=== PATIENT | male | born 1935 | race Caucasian/White ===

== ENCOUNTER → 2018-03-12 11:13 | Outpatient (CLI) | payer MEDICARE, SELFPAY ==
[2018-03-12 11:18] LABS: Microscopic, Urine URINE MICROSCOPIC (MICROSCOPIC)
[2018-03-12 11:34] LABS: Appearance,Urine CLEAR (Clear); Blood, Urine Negative (Negative); Color,Urine YELLOW (Yellow); Glucose,Urine (UA) Negative (Negative); Ketones,Urine TRACE (Negative); Leukocyte Esterase,Urine Negative (Negative); Nitrate,Urine Negative (Negative); PH,Urine 5.5 (5.0-8.5); Protein,Urine 1+ (Negative); Specific Gravity, Urine >= 1.030 (1.005-1.030); Urobilinogen,Urine 0.2 EU/dl (0.2)
[2018-03-12 11:39] LABS: Creatinine,Urine Random 210 mg/dL (20-320); Total Protein,Urine Random 49.9 mg/dL (0.0-11.9)
[2018-03-12 11:41] LABS: Bilirubin,Urine Negative (Negative)
[2018-03-12 11:45] LABS: Basophils # 0.1 K/mm3 (0-0.2); Basophils % 0.5 % (0.1-2.0); Eosinophils # 0.3 K/mm3 (0.0-0.4); Eosinophils % 2.5 % (0.1-12.0); Hematocrit 38.2 % (42.0-52.0); Hemoglobin 12.1 g/dL (14.1-18.0); Lymphocytes # 6.1 K/mm3 (0.7-4.5); Lymphocytes % 57.4 % (10-50); Mean Corpuscular HGB Conc 31.7 g/dL (31.8-35.4); Mean Corpuscular Hemoglobin 30.7 pg (27.0-31.2); Mean Corpuscular Volume 96.8 fl (80-94); Mean Platelet Volume 8.1 fl (7.4-10.4); Monocytes # 0.5 K/mm3 (0.1-1.0); Neutrophils # 3.7 K/mm3 (1.8-7.8); Neutrophils % 34.6 % (37.0-80.0); Platelet Count 224 K/mm3 (142-424); Red Blood Count 3.94 M/mm3 (4.60-6.20); Red Cell Distribution Width 14.5 % (11.5-17.5); White Blood Count 10.6 K/mm3 (4.8-10.8)
[2018-03-12 11:48] LABS: Bacteria,Urine 3+ /lpf; Mucus,Urine 2+ /lpf; Squamous Epithelial Cell,Urine Occasional #/hpf (0-5)
[2018-03-12 11:52] LABS: MANUAL DIFFERENTIAL MANUAL DIFFERENTIAL (MANUAL DIFF)
[2018-03-12 12:30] LABS: Albumin Level 3.8 gm/dL (3.4-5.0); Anion Gap 13.6 mEq/L (5-15); Blood Urea Nitrogen 22 mg/dL (7-18); Calcium 8.9 mg/dL (8.5-10.1); Carbon Dioxide 28 mmol/L (21.0-32.0); Chloride 102 mmol/L (98-107); Creatinine,Serum 1.52 mg/dL (0.70-1.30); Estimated Glomerular Filt Rate 44 ml/min (>60); GFR (African American) 53 ML/MIN (>60); Glucose 149 mg/dL (74-106); Phosphorous 3.8 mg/dL (2.4-4.9); Potassium 4.6 mmoL/L (3.5-5.1); Sodium 139 mmol/L (136-145); Uric Acid 7.3 mg/dL (2.6-7.2)
[2018-03-12 14:57] LABS: Eosinophils % 3 % (0-3); Lymphocytes % 53 % (10-50); Monocytes % 6 % (2-9); Neutrophils % 38 % (42-76); Platelet Estimate Normal; RBC Morphology Normal; Total Cells Counted 100
[2018-03-13 09:59] LABS: Vitamin D 25 Hydroxy 37.1 ng/mL (30.0-100.0)
[2018-03-14 06:20] LABS: Calcium, Ionized 5.2 mg/dL (4.5-5.6); Parathyroid Hormone Intact 33 pg/mL (15-65)
== END ==
PROVIDERS: Visit Provider Internal Medicine Nephrology
DX: N28.9 Disorder of kidney and ureter, unspecified (principal)
CPT/HCPCS: 36415; 80069; 81001; 82330; 82570; 82652; 83970; 84155; 84550; 85007; 85025; 87086

== ENCOUNTER → 2018-03-29 15:04 | Outpatient (POV) | payer MEDICARE, SELFPAY | PROVIDERS: Visit Provider Internal Medicine Nephrology | DX: Z00.00 Encounter for general adult medical examination without abnormal findings (principal) ==

== ENCOUNTER → 2018-07-13 09:36 | Outpatient (CLI) | payer MEDICARE, SELFPAY | PROVIDERS: Visit Provider Internal Medicine Medical Oncology | DX: D72.820 Lymphocytosis (symptomatic) (principal) | CPT/HCPCS: 36415 ==

== ENCOUNTER → 2019-01-31 10:47 | Outpatient (CLI) | payer MEDICARE, SELFPAY | PROVIDERS: Visit Provider Internal Medicine Medical Oncology | DX: D64.9 Anemia, unspecified (principal); I89.8 Other specified noninfective disorders of lymphatic vessels and lymph nodes | CPT/HCPCS: 36415 ==

== ENCOUNTER → 2019-02-07 10:04 | Outpatient (CLI) | payer MEDICARE, SELFPAY ==
[2019-02-07 11:40] LABS: Basophils # 0.1 K/mm3 (0-0.2); Basophils % 0.5 % (0.1-2.0); Eosinophils # 0.2 K/mm3 (0.0-0.4); Eosinophils % 1.4 % (0.1-12.0); Hematocrit 44.6 % (42.0-52.0); Hemoglobin 14.2 g/dL (14.1-18.0); Lymphocytes # 9.9 K/mm3 (0.7-4.5); Mean Corpuscular HGB Conc 31.8 g/dL (31.8-35.4); Mean Corpuscular Hemoglobin 32.8 pg (27.0-31.2); Mean Corpuscular Volume 103.3 fl (80-94); Mean Platelet Volume 8.5 fl (7.4-10.4); Monocytes # 0.6 K/mm3 (0.1-1.0); Monocytes % 3.5 % (1.7-9.3); Neutrophils # 5.4 K/mm3 (1.8-7.8); Neutrophils % 33.6 % (37.0-80.0); Platelet Count 195 K/mm3 (142-424); Red Blood Count 4.32 M/mm3 (4.60-6.20); Red Cell Distribution Width 13.9 % (11.5-17.5); White Blood Count 16.2 K/mm3 (4.8-10.8)
[2019-02-07 11:51] LABS: MANUAL DIFFERENTIAL MANUAL DIFFERENTIAL (MANUAL DIFF)
[2019-02-07 13:34] LABS: Alanine Aminotransferase 37 U/L (12-78); Albumin/Globulin Ratio 1.4 (1.1-1.8); Alkaline Phosphatase 59 U/L (46-116); Anion Gap 15.1 mEq/L (5-15); Aspartate Amino Transferase 24 U/L (15-37); Bilirubin,Total 0.4 mg/dL (0.2-1.0); Blood Urea Nitrogen 31 mg/dL (7-18); Calcium 9.1 mg/dL (8.5-10.1); Carbon Dioxide 26 mmol/L (21.0-32.0); Chloride 101 mmol/L (98-107); Creatinine,Serum 1.59 mg/dL (0.70-1.30); Estimated Glomerular Filt Rate 42 ml/min (>60); GFR (African American) 51 ML/MIN (>60); Globulin 2.8 gm/dl (1.3-3.2); Glucose 123 mg/dL (74-106); Potassium 5.1 mmoL/L (3.5-5.1); Sodium 137 mmol/L (136-145); Total Protein,Serum 6.8 gm/dL (6.4-8.2)
[2019-02-07 14:52] LABS: Eosinophils % 2 % (0-3); Lymphocytes % 55 % (10-50); Monocytes % 3 % (2-9); Neutrophils % 38 % (42-76); Total Cells Counted 100
[2019-02-07 14:54] LABS: Macrocytosis 1+; Platelet Estimate Normal
[2019-02-07 14:55] LABS: RBC Morphology Normal
== END ==
PROVIDERS: Visit Provider Internal Medicine Medical Oncology
DX: C91.00 Acute lymphoblastic leukemia not having achieved remission (principal)
CPT/HCPCS: 36415; 80053; 85007; 85025

== ENCOUNTER → 2019-03-19 09:14 | Outpatient (CLI) | payer MEDICARE, SELFPAY ==
[2019-03-19 09:22] LABS: Microscopic, Urine URINE MICROSCOPIC (MICROSCOPIC)
[2019-03-19 10:55] LABS: Basophils # 0.1 K/mm3 (0-0.2); Basophils % 0.8 % (0.1-2.0); Eosinophils # 0.1 K/mm3 (0.0-0.4); Eosinophils % 1.6 % (0.1-12.0); Hematocrit 47.3 % (42.0-52.0); Hemoglobin 15.1 g/dL (14.1-18.0); Lymphocytes # 3.8 K/mm3 (0.7-4.5); Mean Corpuscular Hemoglobin 33.6 pg (27.0-31.2); Mean Corpuscular Volume 104.9 fl (80-94); Mean Platelet Volume 8.9 fl (7.4-10.4); Monocytes # 0.4 K/mm3 (0.1-1.0); Monocytes % 5.7 % (1.7-9.3); Neutrophils # 3.4 K/mm3 (1.8-7.8); Platelet Count 178 K/mm3 (142-424); Red Blood Count 4.51 M/mm3 (4.60-6.20); Red Cell Distribution Width 14.2 % (11.5-17.5); White Blood Count 7.8 K/mm3 (4.8-10.8)
[2019-03-19 11:42] LABS: Albumin Level 4.1 gm/dL (3.4-5.0); Blood Urea Nitrogen 26 mg/dL (7-18); Calcium 8.4 mg/dL (8.5-10.1); Carbon Dioxide 24 mmol/L (21.0-32.0); Chloride 103 mmol/L (98-107); Creatinine,Serum 1.61 mg/dL (0.70-1.30); Estimated Glomerular Filt Rate 41 ml/min (>60); GFR (African American) 50 ML/MIN (>60); Glucose 189 mg/dL (74-106); Phosphorous 3.8 mg/dL (2.4-4.9); Sodium 135 mmol/L (136-145)
[2019-03-19 14:29] LABS: Creatinine,Urine Random 120 mg/dL (20-320); Total Protein,Urine Random 31.3 mg/dL (0.0-11.9)
[2019-03-19 18:52] LABS: Appearance,Urine CLEAR (Clear); Bilirubin,Urine Negative (Negative); Blood, Urine Negative (Negative); Color,Urine YELLOW (Yellow); Glucose,Urine (UA) Negative (Negative); Ketones,Urine Negative (Negative); Leukocyte Esterase,Urine Negative (Negative); Nitrate,Urine Negative (Negative); Protein,Urine Negative (Negative); Urobilinogen,Urine 0.2 EU/dl (0.2)
[2019-03-19 19:04] LABS: Bacteria,Urine Trace /lpf; Squamous Epithelial Cell,Urine Occasional #/hpf (0-5); WBC,Urine Occasional #/hpf (0-3)
[2019-03-20 11:47] LABS: Vitamin D 25 Hydroxy 45.7 ng/mL (30.0-100.0)
[2019-03-21 21:14] LABS: Parathyroid Hormone Intact 56 pg/mL (15-65)
[2019-03-21 21:15] LABS: Calcium, Ionized 4.9 mg/dL (4.5-5.6)
== END ==
PROVIDERS: Visit Provider Internal Medicine Nephrology
DX: N18.3 Chronic kidney disease, stage 3 (moderate) (principal)
CPT/HCPCS: 36415; 80069; 81001; 82330; 82570; 82652; 83970; 84155; 85025

== ENCOUNTER → 2019-03-28 13:19 | Outpatient (POV) | payer MEDICARE, SELFPAY | PROVIDERS: Visit Provider Internal Medicine Nephrology | DX: Z00.00 Encounter for general adult medical examination without abnormal findings (principal) ==

== ENCOUNTER → 2019-09-20 11:25 | Outpatient (CLI) | payer MEDICARE, SELFPAY ==
[2019-09-20 11:53] LABS: Basophils # 0.1 K/mm3 (0-0.2); Basophils % 0.9 % (0.1-2.0); Eosinophils # 0.2 K/mm3 (0.0-0.4); Hematocrit 43.3 % (42.0-52.0); Hemoglobin 14.2 g/dL (14.1-18.0); Lymphocytes # 6.5 K/mm3 (0.7-4.5); Lymphocytes % 58.8 % (10-50); Mean Corpuscular HGB Conc 32.8 g/dL (31.8-35.4); Mean Corpuscular Hemoglobin 33.3 pg (27.0-31.2); Mean Corpuscular Volume 101.5 fl (80-94); Mean Platelet Volume 8.6 fl (7.4-10.4); Monocytes # 0.6 K/mm3 (0.1-1.0); Monocytes % 5.6 % (1.7-9.3); Neutrophils # 3.6 K/mm3 (1.8-7.8); Neutrophils % 32.7 % (37.0-80.0); Platelet Count 163 K/mm3 (142-424); Red Blood Count 4.26 M/mm3 (4.60-6.20); Red Cell Distribution Width 14.5 % (11.5-17.5); White Blood Count 11.1 K/mm3 (4.8-10.8)
[2019-09-20 11:55] LABS: MANUAL DIFFERENTIAL MANUAL DIFFERENTIAL (MANUAL DIFF)
[2019-09-20 13:42] LABS: Chloride 103 mmol/L (98-107)
[2019-09-20 13:43] LABS: Potassium 4.8 mmoL/L (3.5-5.1); Sodium 139 mmol/L (136-145)
[2019-09-20 13:45] LABS: Alanine Aminotransferase 26 U/L (12-78); Albumin Level 4.2 g/dl (3.5-5.0); Alkaline Phosphatase 49 U/L (38-126); Anion Gap 12.8 mEq/L (5-15); Aspartate Amino Transferase 35 U/L (17-59); Bilirubin,Total 0.6 mg/dl (0.2-1.3); Blood Urea Nitrogen 23 mg/dl (9-20); Calcium 9.3 mg/dl (8.4-10.2); Carbon Dioxide 28 mmol/L (22.0-30.0); Estimated Glomerular Filt Rate 58 ml/min (>60); GFR (African American) 70 ML/MIN (>60); Globulin 2.1 g/dL (1.3-3.2); Glucose 154 mg/dl (74-100); Total Protein,Serum 6.3 g/dl (6.3-8.2)
[2019-09-20 14:59] LABS: Eosinophils % 1 % (0-3); Lymphocytes % 58 % (10-50); Macrocytosis 1+; Monocytes % 10 % (2-9); Neutrophils % 31 % (42-76); Platelet Estimate Normal; Total Cells Counted 100
== END ==
PROVIDERS: Visit Provider Internal Medicine Medical Oncology
DX: C91.00 Acute lymphoblastic leukemia not having achieved remission (principal)
CPT/HCPCS: 36415; 80053; 85007; 85025

== ENCOUNTER 2020-03-05 09:22 | Emergency (ER) | payer MEDICARE, SELFPAY ==
[2020-03-05 09:23] VITALS: BP 117/64; PULSE 64; RESP 16; TEMP 36.8; O2SAT 98; BMI 27.3
--- NOTE | 2020-03-05 10:24 | HMH.EDUTC ---
[facility] [place] Disposition Clinical Impression: Exposure to COVID-19 virus Disposition: Home, Self-Care Condition on Discharge: Good Instructions: Preventing the Spread of Coronavirus Discharge Instructions Additional Instructions: Drink plenty of fluids. Take tylenol for pain or fever. Follow up with your regular doctor. GO TO THE ER FOR ANY WORSENING SYMPTOMS Referrals: Lianet Farrell MD [Primary Care Provider] - Time of Disposition: 10:38 Medical Decision Making - Medical Records Medical records reviewed: No: I reviewed the patient's medical records. - Yimi Inquiry Pt receiving controlled substance: No Vital Signs: 03/05/20 09:23 Temperature 98.2 F Temperature Source Oral Pulse Rate [Right] 64 Respiratory Rate 16 Blood Pressure [Right Arm] 117/64 Blood Pressure Mean [Right Arm] 81 Blood Pressure Source [Right Arm] Automatic Cuff Blood Pressure Position [Right Arm] Sitting 02 Sat by Pulse Oximetry 98 Oxygen Delivery Method Room Air [facility] [place] HPI - General Stated complaint: Covid exposure Time Seen by Provider: 03/05/20 10:24 - History of Present Illness Provider Complaint: He states that he has been exposed to covid and needs a covid test. - Related Data Home Medications Medication Instructions Recorded Confirmed atenolol 25 mg tablet 25 mg PO DAILY 07/13/18 11/07/19 atorvastatin 40 mg tablet 40 mg PO DAILY 07/13/18 11/07/19 calcium polycarbophil 625 mg tablet 1,250 mg PO DAILY 07/13/18 11/07/19 ferrous fumarate 325 mg (106 mg PO tab 07/13/18 11/07/19 iron) tablet folic acid 1 mg tablet 1 mg PO DAILY 07/13/18 11/07/19 glimepiride 2 mg tablet 2 mg PO DAILY 07/13/18 11/07/19 insulin glargine 100 unit/mL (3 10 unit SQ DAILY 07/13/18 11/07/19 mL) subcutaneous pen isosorbide mononitrate 30 mg 30 mg PO DAILY 07/13/18 11/07/19 tablet,extended release 24 hr niacin 750 mg tablet,extended 750 mg PO QHS 07/13/18 11/07/19 release nitroglycerin 0.4 mg sublingual 0.4 mg SUBLINGUAL Q5-15M 07/13/18 11/07/19 tablet ranolazine 1,000 mg 1,000 mg PO BID 07/13/18 11/07/19 tablet,extended release,12 hr sitagliptin 50 mg tablet 50 mg PO DAILY 07/13/18 11/07/19 temazepam 30 mg capsule 30 mg PO QHS PRN 07/13/18 11/07/19 vitamins A,C,and E-selenium capsule 1 cap PO DAILY 07/13/18 11/07/19 prasugrel 5 mg tablet 5 mg PO DAILY 11/07/19 11/07/19 Allergies Allergy/AdvReac Type Severity Reaction Status Date / Time No Known Allergies Allergy Verified 11/07/19 09:[address] [facility] History - Hepatitis A Screen Attestation statement:: This patient has been screened for Hepatitis A risk factors. I have reviewed the patient's past medical history: Yes Medical History: Reports:: Cancer, Diabetes Mellitus Type 2, Myocardial Infarction Other Medical History: Reports: Arthritis Other Surgeries: Yes: CABG, Other Amputation: No Fractures: No - Social History Smoking Status: Former smoker Alcohol Intake: never Occupational Status: employed, retired ROS Obtained: Yes All systems reviewed & no additional complaints - Constitutional Constitutional: Reports system reviewed and no additional complaints, except as docu - Eyes Eyes: Reports system reviewed and no additional complaints, except as docu - ENT Ears, Nose, Mouth, and Throat: Reports system reviewed and no additional complaints, except as docu - Cardiovascular Cardiovascular: Reports system reviewed and no additional complaints, except as docu - Respiratory Respiratory: Yes system reviewed and no additional complaints, except as docu - Gastrointestinal Gastrointestingal: Reports: system reviewed and no additional complaints, except as docu Physical Exam - General General appearance: alert, in no apparent distress - Head Head exam: atraumatic, normocephalic, normal inspection - Eye Eye exam: Present: normal appearance, PERRL, EOMI - ENT ENT exam: Present: normal exam, normal oropharynx, mucous membranes moist,
[2020-03-05 11:02] VITALS: BP 118/70; PULSE 70; RESP 16; TEMP 36.6; O2SAT 98
[2020-03-06 15:42] LABS: Covid-19 Nasal PCR Sendout Lex Not Detected
== END 2020-03-05 11:02 | disposition home or self-care (01) ==
PROVIDERS: Emergency Provider Nurse Practitioner Family; PCP Family Medicine
DX: Z20.828 Contact with and (suspected) exposure to other viral communicable diseases (principal); E11.9 Type 2 diabetes mellitus without complications; I25.2 Old myocardial infarction; Z95.1 Presence of aortocoronary bypass graft; Z79.899 Other long term (current) drug therapy
CPT/HCPCS: 99201; U0004

== ENCOUNTER → 2020-04-27 11:35 | Outpatient (CLI) | payer MEDICARE, SELFPAY ==
[2020-04-27 11:41] LABS: Microscopic, Urine URINE MICROSCOPIC (MICROSCOPIC)
[2020-04-27 11:59] LABS: Basophils # 0.1 K/mm3 (0-0.2); Basophils % 0.8 % (0.1-2.0); Eosinophils # 0.2 K/mm3 (0.0-0.4); Eosinophils % 1.9 % (0.1-12.0); Hematocrit 44.7 % (42.0-52.0); Hemoglobin 14.8 g/dL (14.1-18.0); Lymphocytes # 4.7 K/mm3 (0.7-4.5); Mean Corpuscular Hemoglobin 33.1 pg (27.0-31.2); Mean Platelet Volume 9.1 fl (7.4-10.4); Monocytes # 0.5 K/mm3 (0.1-1.0); Monocytes % 5.2 % (1.7-9.3); Neutrophils # 4.2 K/mm3 (1.8-7.8); Neutrophils % 43.2 % (37.0-80.0); Platelet Count 151 K/mm3 (142-424); Red Blood Count 4.46 M/mm3 (4.60-6.20); Red Cell Distribution Width 13.6 % (11.5-17.5); White Blood Count 9.7 K/mm3 (4.8-10.8)
[2020-04-27 13:02] LABS: Appearance,Urine CLEAR (Clear); Bilirubin,Urine Negative (Negative); Blood, Urine Negative (Negative); Color,Urine YELLOW (Yellow); Glucose,Urine (UA) Negative (Negative); Ketones,Urine Negative (Negative); Leukocyte Esterase,Urine Negative (Negative); Nitrate,Urine Negative (Negative); PH,Urine 5.5 (5.0-8.5); Protein,Urine Negative (Negative); Specific Gravity, Urine <= 1.005 (1.005-1.030); Urobilinogen,Urine 0.2 EU/dl (0.2)
[2020-04-27 13:08] LABS: Squamous Epithelial Cell,Urine Occasional #/hpf (0-5); WBC,Urine Occasional #/hpf (0-3)
[2020-04-27 15:51] LABS: Creatinine,Urine Random 30 mg/dL (Not Estab.)
[2020-04-28 14:47] LABS: Alanine Aminotransferase 34 U/L (12-78); Albumin Level 4.7 g/dl (3.5-5.0); Anion Gap 12.6 mEq/L (5-15); Aspartate Amino Transferase 34 U/L (17-59); Bilirubin,Total 0.6 mg/dl (0.2-1.3); Blood Urea Nitrogen 22 mg/dl (9-20); Carbon Dioxide 28 mmol/L (22.0-30.0); Chloride 101 mmol/L (98-107); Estimated Glomerular Filt Rate 53 ml/min (>60); GFR (African American) 64 ML/MIN (>60); Globulin 2.4 g/dL (1.3-3.2); Glucose 158 mg/dl (74-100); Potassium 4.6 mmoL/L (3.5-5.1); Sodium 137 mmol/L (136-145); Total Protein,Serum 7.1 g/dl (6.3-8.2)
[2020-04-28 14:58] LABS: Alkaline Phosphatase 65 U/L (38-126)
== END ==
PROVIDERS: Internal Medicine Medical Oncology; Visit Provider Internal Medicine Nephrology
DX: N18.30 Chronic kidney disease, stage 3 unspecified (principal)
CPT/HCPCS: 36415; 80053; 80069; 81001; 82570; 84100; 84155; 85025

== ENCOUNTER → 2020-07-25 08:51 | Outpatient (CLI) | payer MEDICARE, SELFPAY ==
[2020-07-25 08:57] LABS: Microscopic, Urine URINE MICROSCOPIC (MICROSCOPIC)
[2020-07-25 10:27] LABS: Basophils # 0.1 K/mm3 (0-0.2); Basophils % 0.7 % (0.1-2.0); Eosinophils # 0.2 K/mm3 (0.0-0.4); Eosinophils % 1.5 % (0.1-12.0); Hematocrit 38.3 % (42.0-52.0); Hemoglobin 12.1 g/dL (14.1-18.0); Lymphocytes # 6.6 K/mm3 (0.7-4.5); Lymphocytes % 57.1 % (10-50); Mean Corpuscular HGB Conc 31.5 g/dL (31.8-35.4); Mean Corpuscular Hemoglobin 31.6 pg (27.0-31.2); Mean Platelet Volume 7.8 fl (7.4-10.4); Monocytes # 0.5 K/mm3 (0.1-1.0); Monocytes % 4.2 % (1.7-9.3); Neutrophils # 4.2 K/mm3 (1.8-7.8); Neutrophils % 36.5 % (37.0-80.0); Platelet Count 160 K/mm3 (142-424); Red Blood Count 3.82 M/mm3 (4.60-6.20); Red Cell Distribution Width 13.6 % (11.5-17.5); White Blood Count 11.6 K/mm3 (4.8-10.8)
[2020-07-25 10:30] LABS: MANUAL DIFFERENTIAL MANUAL DIFFERENTIAL (MANUAL DIFF)
[2020-07-25 10:36] LABS: Chloride 102 mmol/L (98-107)
[2020-07-25 10:37] LABS: Albumin Level 4.2 g/dl (3.5-5.0); Potassium 4.8 mmoL/L (3.5-5.1); Sodium 137 mmol/L (136-145)
[2020-07-25 10:39] LABS: Blood Urea Nitrogen 18 mg/dl (9-20); Estimated Glomerular Filt Rate 58 ml/min (>60); GFR (African American) 70 ML/MIN (>60)
[2020-07-25 10:40] LABS: Anion Gap 8.8 mEq/L (5-15); Calcium 9.2 mg/dl (8.4-10.2); Carbon Dioxide 31 mmol/L (22.0-30.0); Glucose 110 mg/dl (74-100)
[2020-07-25 13:28] LABS: Anisocytosis 1+; Eosinophils % 1 % (0-3); Lymphocytes % 52 % (10-50); Macrocytosis 1+; Monocytes % 8 % (2-9); Neutrophils % 39 % (42-76); Platelet Estimate Normal; Total Cells Counted 100
[2020-07-25 14:19] LABS: Appearance,Urine CLEAR (Clear); Blood, Urine Negative (Negative); Color,Urine AMBER (Yellow); Glucose,Urine (UA) Negative (Negative); Ketones,Urine Negative (Negative); Leukocyte Esterase,Urine Negative (Negative); Nitrate,Urine Negative (Negative); PH,Urine 6.5 (5.0-8.5); Protein,Urine 1+ (Negative)
[2020-07-25 14:33] LABS: Creatinine,Urine Random 137 mg/dL (Not Estab.)
[2020-07-25 14:34] LABS: Bilirubin,Urine Negative (Negative)
[2020-07-25 14:37] LABS: Amorphous Sediment,Urine 1+ /lpf; Hyaline Casts,Urine Occasional #/lpf (0); Mucus,Urine 1+ /lpf; Squamous Epithelial Cell,Urine Occasional #/hpf (0-5); WBC,Urine Occasional #/hpf (0-3)
== END ==
PROVIDERS: Visit Provider Internal Medicine Nephrology
DX: N18.30 Chronic kidney disease, stage 3 unspecified (principal)
CPT/HCPCS: 36415; 80069; 81001; 82570; 84156; 84166; 85007; 85025

== ENCOUNTER → 2020-08-03 14:43 | Outpatient (POV) | payer MEDICARE, SELFPAY | PROVIDERS: Visit Provider Internal Medicine Nephrology | DX: Z00.00 Encounter for general adult medical examination without abnormal findings (principal) ==

== ENCOUNTER → 2021-02-26 10:00 | Outpatient (CLI) | payer MEDICARE, SELFPAY | PROVIDERS: PCP Family Medicine; Visit Provider Family Medicine | DX: G47.30 Sleep apnea, unspecified (principal); I10 Essential (primary) hypertension; G47.00 Insomnia, unspecified; R06.83 Snoring | CPT/HCPCS: G0399 ==

== ENCOUNTER 2021-03-11 09:56 | Emergency (ER) | payer MEDICARE, SELFPAY ==
[2021-03-11 11:30] VITALS: BP 132/73; PULSE 78; RESP 20; TEMP 36.7; O2SAT 98; BMI 27.1
[2021-03-11 11:48] VITALS: BP 132/73; PULSE 78; RESP 20; TEMP 36.7; O2SAT 98
--- NOTE | 2021-03-11 12:11 | HMH.EDUTC ---
[facility] [place] Disposition Clinical Impression: Toe problem Disposition: Home, Self-Care Condition on Discharge: Good Instructions: DI for Ingrown Toenail Removal, Cephalexin, Bacitracin Topical Additional Instructions: Keep area on toes clean and dry Take medication as prescribed Cut toe out of old pair of shoes or house shoes may keep toes from rubbing shoes Return if needed straight to ER if any life threatening symptoms Follow up with your Family Doctor or Podiatry if no improvement or any worsen of symptoms Prescriptions: Bacitracin [Bacitracin Oint 0.9GM UDP] 1 each TP TID 10 Days #30 packet Transmission Status: Pending to [facility] cephALEXin [cephALEXin 500mg capsule*] 500 mg PO Q8H 7 Days #21 cap Transmission Status: Pending to [facility] Referrals: Lianet Farrell MD [Primary Care Provider] - As needed Time of Disposition: 12:28 Medical Decision Making - Yimi Inquiry Pt receiving controlled substance: No Yimi was queried for this patient: No Vital Signs: 03/11/21 11:30 03/11/21 11:48 Temperature 98.0 F 98.0 F Temperature Source Oral Pulse Rate 78 Pulse Rate [Right Brachial] 78 Respiratory Rate 20 20 Blood Pressure 132/73 Blood Pressure [Right Arm] 132/73 Blood Pressure Mean [Right Arm] 92 Blood Pressure Source [Right Arm] Automatic Cuff Blood Pressure Position [Right Arm] Sitting 02 Sat by Pulse Oximetry 98 Oxygen Delivery Method Room Air Medical Decision Narrative: Medication discussed with pharmacy [facility] [place] HPI - General Stated complaint: both big toe bleeding Time Seen by Provider: 03/11/21 12:11 Mode of Arrival: Ambulatory Source of Information: Patient Limitations: No Limitations Description of Symptoms (Recalled from Triage Doc. by RN): PATIENT REPORTS HE HAD A LEFT GREAT TOE INGROWN NAIL WORKED ON AT [employer] YESTERDAY. HE STATES TOE WAS BLEEDING LAST NIGHT BUT HAS SLOWED DOWN THIS MORNING. HE IS ON BLOOD THINNERS. 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 and had two ingrown nails dug out States that he had issues getting them to stop bleeding because he is on blood thinners but finally got them to stop and noticed his left toe was looking red like it may be getting infected so he came in - Related Data Home Medications Medication Instructions Recorded Confirmed atorvastatin 40 mg tablet 40 mg PO DAILY 07/13/18 03/11/21 calcium polycarbophil 625 mg tablet 1,250 mg PO DAILY 07/13/18 03/11/21 ferrous fumarate 325 mg (106 mg PO tab 07/13/18 03/11/21 iron) tablet folic acid 1 mg tablet 1 mg PO DAILY 07/13/18 03/11/21 glimepiride 2 mg tablet 2 mg PO DAILY 07/13/18 03/11/21 insulin glargine 100 unit/mL (3 10 unit SQ DAILY 07/13/18 03/11/21 mL) subcutaneous pen isosorbide mononitrate 30 mg 30 mg PO DAILY 07/13/18 03/11/21 tablet,extended release 24 hr niacin 750 mg tablet,extended 750 mg PO QHS 07/13/18 03/11/21 release nitroglycerin 0.4 mg sublingual 0.4 mg SUBLINGUAL Q5-15M 07/13/18 03/11/21 tablet ranolazine 1,000 mg 1,000 mg PO BID 07/13/18 03/11/21 tablet,extended release,12 hr temazepam 30 mg capsule 30 mg PO QHS PRN 07/13/18 03/11/21 vitamins A,C,and E-selenium capsule 1 cap PO DAILY 07/13/18 03/11/21 prasugrel 5 mg tablet 5 mg PO DAILY 11/07/19 03/11/21 alogliptin 12.5 mg tablet 12.5 mg PO DAILY 03/11/21 03/11/21 aspirin 81 mg tablet,delayed 81 mg PO DAILY 03/11/21 03/11/21 release carvedilol 12.5 mg tablet 12.5 mg PO BID tab 03/11/21 03/11/21 coenzyme Q10 75 mg capsule 75 mg PO DAILY 03/11/21 03/11/21 ezetimibe 10 mg tablet 10 mg PO DA
== END 2021-03-11 12:35 | disposition home or self-care (01) ==
PROVIDERS: Emergency Provider Nurse Practitioner; PCP Family Medicine
DX: L60.0 Ingrowing nail (principal); I25.10 Atherosclerotic heart disease of native coronary artery without angina pectoris; E11.9 Type 2 diabetes mellitus without complications; I25.2 Old myocardial infarction; I10 Essential (primary) hypertension; E78.5 Hyperlipidemia, unspecified; Z79.01 Long term (current) use of anticoagulants
CPT/HCPCS: G0463; 99202

== ENCOUNTER → 2021-03-25 09:26 | Outpatient (CLI) | payer MEDICARE, SELFPAY ==
[2021-03-25 09:30] LABS: Microscopic, Urine URINE MICROSCOPIC (MICROSCOPIC)
[2021-03-25 10:01] LABS: Basophils # 0.2 K/mm3 (0-0.2); Basophils % 2.9 % (0.1-2.0); Eosinophils # 0.1 K/mm3 (0.0-0.4); Eosinophils % 1.3 % (0.1-12.0); Hemoglobin 13.5 g/dL (14.1-18.0); Lymphocytes # 4.4 K/mm3 (0.7-4.5); Lymphocytes % 51.7 % (10-50); Mean Corpuscular HGB Conc 34.6 g/dL (31.8-35.4); Mean Corpuscular Hemoglobin 33.8 pg (27.0-31.2); Mean Corpuscular Volume 97.6 fl (80-94); Mean Platelet Volume 9.2 fl (7.4-10.4); Monocytes # 0.4 K/mm3 (0.1-1.0); Monocytes % 4.4 % (1.7-9.3); Neutrophils # 3.4 K/mm3 (1.8-7.8); Neutrophils % 39.7 % (37.0-80.0); Platelet Count 165 K/mm3 (142-424); Red Cell Distribution Width 13.6 % (11.5-17.5); White Blood Count 8.5 K/mm3 (4.8-10.8)
[2021-03-25 10:08] LABS: MANUAL DIFFERENTIAL MANUAL DIFFERENTIAL (MANUAL DIFF)
[2021-03-25 10:32] LABS: Albumin Level 4.6 g/dl (3.5-5.0); Anion Gap 11.2 mEq/L (5-15); Blood Urea Nitrogen 24 mg/dl (9-20); Calcium 9.8 mg/dl (8.4-10.2); Carbon Dioxide 30 mmol/L (22.0-30.0); Chloride 101 mmol/L (98-107); Estimated Glomerular Filt Rate 48 ml/min (>60); GFR (African American) 58 ML/MIN (>60); Glucose 120 mg/dl (74-100); Phosphorous 4.8 mg/dl (2.5-4.5); Potassium 4.2 mmoL/L (3.5-5.1); Sodium 138 mmol/L (136-145)
[2021-03-25 10:38] LABS: Appearance,Urine CLEAR (Clear); Bilirubin,Urine Negative (Negative); Blood, Urine Negative (Negative); Color,Urine YELLOW (Yellow); Glucose,Urine (UA) Negative (Negative); Ketones,Urine Negative (Negative); Leukocyte Esterase,Urine Negative (Negative); Nitrate,Urine Negative (Negative); Protein,Urine TRACE (Negative); Specific Gravity, Urine 1.025 (1.005-1.030); Urobilinogen,Urine 0.2 EU/dl (0.2)
[2021-03-25 10:43] LABS: Intact Parathyroid Hormone 50.3 pg/mL (7.5-53.5)
[2021-03-25 10:48] LABS: 25-OH Vitamin D, Total 61.2 ng/mL (30-100)
[2021-03-25 10:50] LABS: Creatinine,Urine Random 106 mg/dL (Not Estab.)
[2021-03-25 12:26] LABS: Eosinophils % 1 % (0-3); Lymphocytes % 59 % (10-50); Monocytes % 2 % (2-9); Neutrophils % 37 % (42-76); Platelet Estimate Normal; RBC Morphology Normal; Total Cells Counted 100
[2021-03-26 16:13] LABS: Calcium, Ionized 5.1 mg/dL (4.5-5.6)
== END ==
PROVIDERS: Visit Provider Internal Medicine Nephrology
DX: N18.30 Chronic kidney disease, stage 3 unspecified (principal)
CPT/HCPCS: 36415; 80069; 81001; 82306; 82330; 82570; 83970; 84155; 85007; 85025

== ENCOUNTER → 2021-03-29 15:50 | Outpatient (POV) | payer MEDICARE, SELFPAY | PROVIDERS: Visit Provider Internal Medicine Nephrology | DX: Z00.00 Encounter for general adult medical examination without abnormal findings (principal) ==

== ENCOUNTER → 2021-05-03 09:50 | Outpatient (CLI) | payer MEDICARE, SELFPAY ==
[2021-05-03 10:20] LABS: Basophils # 0.1 K/mm3 (0-0.2); Basophils % 1.1 % (0.1-2.0); Eosinophils # 0.1 K/mm3 (0.0-0.4); Eosinophils % 1.2 % (0.1-12.0); Hematocrit 44.8 % (42.0-52.0); Hemoglobin 14.4 g/dL (14.1-18.0); Lymphocytes # 5.2 K/mm3 (0.7-4.5); Lymphocytes % 54.2 % (10-50); Mean Corpuscular HGB Conc 32.2 g/dL (31.8-35.4); Mean Corpuscular Hemoglobin 33.5 pg (27.0-31.2); Mean Corpuscular Volume 104.1 fl (80-94); Mean Platelet Volume 9.5 fl (7.4-10.4); Monocytes # 0.4 K/mm3 (0.1-1.0); Neutrophils # 3.8 K/mm3 (1.8-7.8); Neutrophils % 39.5 % (37.0-80.0); Platelet Count 155 K/mm3 (142-424); Red Cell Distribution Width 13.4 % (11.5-17.5); White Blood Count 9.5 K/mm3 (4.8-10.8)
[2021-05-03 10:25] LABS: MANUAL DIFFERENTIAL MANUAL DIFFERENTIAL (MANUAL DIFF)
[2021-05-03 12:12] LABS: Anisocytosis 2+; Eosinophils % 1 % (0-3); Giant Platelets 2+; Lymphocytes % 57 % (10-50); Macrocytosis 2+; Monocytes % 7 % (2-9); Neutrophils % 35 % (42-76); Platelet Estimate Normal; Total Cells Counted 100
== END ==
PROVIDERS: PCP Family Medicine; Visit Provider Internal Medicine Medical Oncology
DX: D64.9 Anemia, unspecified (principal)
CPT/HCPCS: 36415; 85007; 85025

== ENCOUNTER → 2021-08-13 14:01 | Outpatient (CLI) | payer MEDICARE, SELFPAY | PROVIDERS: PCP Family Medicine; Visit Provider Family Medicine | DX: R55 Syncope and collapse (principal) | CPT/HCPCS: 93225; 93226 ==

== ENCOUNTER → 2022-04-23 09:04 | Outpatient (CLI) | payer MEDICARE, SELFPAY ==
[2022-04-23 09:09] LABS: Microscopic, Urine URINE MICROSCOPIC (MICROSCOPIC)
[2022-04-23 09:20] LABS: Basophils # 0.1 K/mm3 (0-0.2); Basophils % 0.7 % (0.1-2.0); Eosinophils # 0.2 K/mm3 (0.0-0.4); Eosinophils % 1.5 % (0.1-12.0); Hematocrit 39.5 % (42.0-52.0); Lymphocytes # 9.7 K/mm3 (0.7-4.5); Lymphocytes % 64.2 % (10-50); Mean Corpuscular HGB Conc 32.8 g/dL (31.8-35.4); Mean Corpuscular Hemoglobin 33.3 pg (27.0-31.2); Mean Corpuscular Volume 101.4 fl (80-94); Mean Platelet Volume 8.6 fl (7.4-10.4); Monocytes # 0.5 K/mm3 (0.1-1.0); Monocytes % 3.6 % (1.7-9.3); Neutrophils # 4.6 K/mm3 (1.8-7.8); Platelet Count 178 K/mm3 (142-424); Red Cell Distribution Width 13.6 % (11.5-17.5); White Blood Count 15.2 K/mm3 (4.8-10.8)
[2022-04-23 09:23] LABS: MANUAL DIFFERENTIAL MANUAL DIFFERENTIAL (MANUAL DIFF)
[2022-04-23 09:29] LABS: Appearance,Urine CLEAR (Clear); Bilirubin,Urine Negative (Negative); Blood, Urine Negative (Negative); Color,Urine YELLOW (Yellow); Glucose,Urine (UA) Negative (Negative); Ketones,Urine Negative (Negative); Leukocyte Esterase,Urine Negative (Negative); Nitrate,Urine Negative (Negative); PH,Urine 5.5 (5.0-8.5); Protein,Urine Negative (Negative); Urobilinogen,Urine 0.2 EU/dl (0.2)
[2022-04-23 09:48] LABS: Creatinine,Urine Random 99 mg/dL (Not Estab.)
[2022-04-23 09:56] LABS: Bacteria,Urine Trace /lpf; Squamous Epithelial Cell,Urine Occasional #/hpf (0-5); WBC,Urine Occasional #/hpf (0-3)
[2022-04-23 09:58] LABS: Albumin Level 4.5 g/dl (3.5-5.0); Anion Gap 13.1 mEq/L (5-15); Blood Urea Nitrogen 26 mg/dl (9-20); Calcium 9.1 mg/dl (8.4-10.2); Carbon Dioxide 28 mmol/L (22.0-30.0); Chloride 104 mmol/L (98-107); Estimated Glomerular Filt Rate 44 ml/min (>60); GFR (African American) 54 ML/MIN (>60); Glucose 105 mg/dl (74-100); Phosphorous 4.3 mg/dl (2.5-4.5); Potassium 4.1 mmoL/L (3.5-5.1); Sodium 141 mmol/L (136-145)
[2022-04-23 10:11] LABS: Intact Parathyroid Hormone 38.2 pg/mL (7.5-53.5)
[2022-04-23 10:16] LABS: 25-OH Vitamin D, Total 57.5 ng/mL (30-100)
[2022-04-23 10:17] LABS: Eosinophils % 1 % (0-3); Lymphocytes % 54 % (10-50); Monocytes % 4 % (2-9); Neutrophils % 41 % (42-76); Platelet Estimate Normal; RBC Morphology Normal; Total Cells Counted 100
== END ==
PROVIDERS: PCP Family Medicine; Visit Provider Internal Medicine Nephrology
DX: N18.30 Chronic kidney disease, stage 3 unspecified (principal); E55.9 Vitamin D deficiency, unspecified
CPT/HCPCS: 36415; 80069; 81001; 82306; 82570; 83970; 84155; 85007; 85025

== ENCOUNTER → 2022-04-28 13:58 | Outpatient (POV) | payer MEDICARE, SELFPAY | PROVIDERS: Visit Provider Internal Medicine Nephrology | DX: Z00.00 Encounter for general adult medical examination without abnormal findings (principal) ==

== ENCOUNTER → 2022-06-15 08:54 | Outpatient (CLI) | payer MEDICARE, SELFPAY ==
[2022-06-15 09:54] LABS: Basophils # 0.1 K/mm3 (0-0.2); Basophils % 0.9 % (0.1-2.0); Eosinophils # 0.2 K/mm3 (0.0-0.4); Eosinophils % 1.4 % (0.1-12.0); Hematocrit 41.3 % (42.0-52.0); Lymphocytes # 11.8 K/mm3 (0.7-4.5); Lymphocytes % 73.6 % (10-50); Mean Corpuscular HGB Conc 31.5 g/dL (31.8-35.4); Mean Corpuscular Hemoglobin 32.8 pg (27.0-31.2); Mean Corpuscular Volume 104.2 fl (80-94); Mean Platelet Volume 8.7 fl (7.4-10.4); Monocytes # 0.5 K/mm3 (0.1-1.0); Neutrophils # 3.4 K/mm3 (1.8-7.8); Neutrophils % 21.2 % (37.0-80.0); Platelet Count 157 K/mm3 (142-424); Red Blood Count 3.96 M/mm3 (4.60-6.20); Red Cell Distribution Width 13.9 % (11.5-17.5)
[2022-06-15 10:06] LABS: MANUAL DIFFERENTIAL MANUAL DIFFERENTIAL (MANUAL DIFF)
[2022-06-15 12:06] LABS: Eosinophils % 1 % (0-3); Lymphocytes % 79 % (10-50); Macrocytosis 1+; Monocytes % 1 % (2-9); Neutrophils % 19 % (42-76); Platelet Estimate Normal; Total Cells Counted 100
== END ==
PROVIDERS: PCP Family Medicine; Visit Provider Internal Medicine Medical Oncology
DX: D64.9 Anemia, unspecified (principal)
CPT/HCPCS: 36415; 85007; 85025

== ENCOUNTER → 2022-06-17 09:11 | Outpatient (CLI) | payer MEDICARE, SELFPAY ==
[2022-06-17 18:28] LABS: Chloride 104 mmol/L (98-107); Potassium 4.8 mmoL/L (3.5-5.1); Sodium 138 mmol/L (136-145)
[2022-06-17 18:31] LABS: Anion Gap 10.8 mEq/L (5-15); Blood Urea Nitrogen 28 mg/dl (9-20); Carbon Dioxide 28 mmol/L (22.0-30.0); Estimated Glomerular Filt Rate 44 ml/min (>60); GFR (African American) 54 ML/MIN (>60)
[2022-06-17 18:32] LABS: Calcium 9.1 mg/dl (8.4-10.2); Glucose 168 mg/dl (74-100)
== END ==
PROVIDERS: PCP Family Medicine; Visit Provider Family Medicine
DX: N18.9 Chronic kidney disease, unspecified (principal)
CPT/HCPCS: 80048

== ENCOUNTER 2022-07-27 08:00 | Outpatient (RCR) | payer MEDICARE, SELFPAY | END 2022-07-27 08:05 | disposition home or self-care (01) | LOC: PT 08:00 | PROVIDERS: PCP Family Medicine; Visit Provider Family Medicine | DX: R26.89 Other abnormalities of gait and mobility (principal); R53.1 Weakness | CPT/HCPCS: 97110; 97112; 97163; 97530 ==

== ENCOUNTER → 2023-02-28 09:15 | Outpatient (CLI) | payer MEDICARE, SELFPAY ==
[2023-02-28 19:01] LABS: Basophils # 0.1 K/mm3 (0-0.2); Basophils % 0.6 % (0.1-2.0); Eosinophils # 0.2 K/mm3 (0.0-0.4); Eosinophils % 1.5 % (0.1-12.0); Hematocrit 36.6 % (42.0-52.0); Hemoglobin 12.3 g/dL (14.1-18.0); Lymphocytes # 6.5 K/mm3 (0.7-4.5); Lymphocytes % 61.4 % (10-50); Mean Corpuscular HGB Conc 33.5 g/dL (31.8-35.4); Mean Corpuscular Hemoglobin 34.6 pg (27.0-31.2); Mean Corpuscular Volume 103.2 fl (80-94); Mean Platelet Volume 9.2 fl (7.4-10.4); Monocytes # 0.5 K/mm3 (0.1-1.0); Monocytes % 4.2 % (1.7-9.3); Neutrophils # 3.4 K/mm3 (1.8-7.8); Neutrophils % 32.3 % (37.0-80.0); Platelet Count 163 K/mm3 (142-424); Red Blood Count 3.55 M/mm3 (4.60-6.20); Red Cell Distribution Width 13.7 % (11.5-17.5); White Blood Count 10.6 K/mm3 (4.8-10.8)
[2023-02-28 19:04] LABS: MANUAL DIFFERENTIAL MANUAL DIFFERENTIAL (MANUAL DIFF)
[2023-02-28 19:10] LABS: Alanine Aminotransferase 37 U/L (12-78); Albumin Level 4.4 g/dl (3.5-5.0); Alkaline Phosphatase 67 U/L (38-126); Anion Gap 14.3 mEq/L (5-15); Aspartate Amino Transferase 75 U/L (17-59); Bilirubin,Total 0.6 mg/dl (0.2-1.3); Blood Urea Nitrogen 20 mg/dl (9-20); Calcium 9.3 mg/dl (8.4-10.2); Carbon Dioxide 26 mmol/L (22.0-30.0); Chloride 103 mmol/L (98-107); Estimated Glomerular Filt Rate 57 ml/min (>60); GFR (African American) 69 ML/MIN (>60); Globulin 2.2 g/dL (1.3-3.2); Glucose 109 mg/dl (74-100); Potassium 4.3 mmoL/L (3.5-5.1); Sodium 139 mmol/L (136-145); Total Protein,Serum 6.6 g/dl (6.3-8.2)
[2023-02-28 19:41] LABS: Lymphocytes % 60 % (10-50); Monocytes % 5 % (2-9); Neutrophils % 35 % (42-76); Thyroid Stimulating Hormone 1.93 uIU/mL (0.465-4.68); Total Cells Counted 100
[2023-02-28 19:42] LABS: Platelet Estimate Normal; RBC Morphology Normal
== END ==
PROVIDERS: PCP Family Medicine; Visit Provider Family Medicine
DX: N18.9 Chronic kidney disease, unspecified (principal); I25.118 Atherosclerotic heart disease of native coronary artery with other forms of angina pectoris; R19.4 Change in bowel habit
CPT/HCPCS: 80053; 84443; 85007; 85025

== ENCOUNTER → 2023-04-20 12:36 | Outpatient (CLI) | payer MEDICARE, SELFPAY ==
[2023-04-20 12:56] LABS: Microscopic, Urine URINE MICROSCOPIC (MICROSCOPIC)
[2023-04-20 13:13] LABS: Hematocrit 37.6 % (42.0-52.0); Hemoglobin 12.7 g/dL (14.1-18.0); Mean Corpuscular HGB Conc 33.6 g/dL (31.8-35.4); Mean Corpuscular Hemoglobin 33.5 pg (27.0-31.2); Mean Corpuscular Volume 99.5 fl (80-94); Platelet Count 167 K/mm3 (142-424); Red Blood Count 3.78 M/mm3 (4.60-6.20); Red Cell Distribution Width 13.5 % (11.5-17.5); White Blood Count 12.7 K/mm3 (4.8-10.8)
[2023-04-20 13:22] LABS: Appearance,Urine CLEAR (Clear); Bilirubin,Urine Negative (Negative); Blood, Urine Negative (Negative); Color,Urine YELLOW (Yellow); Glucose,Urine (UA) Negative (Negative); Ketones,Urine Negative (Negative); Leukocyte Esterase,Urine Negative (Negative); Nitrate,Urine Negative (Negative); PH,Urine 6.5 (5.0-8.5); Protein,Urine TRACE (Negative)
[2023-04-20 13:33] LABS: Albumin Level 4.4 g/dl (3.5-5.0); Anion Gap 10.7 mEq/L (5-15); Blood Urea Nitrogen 23 mg/dl (9-20); Calcium 8.8 mg/dl (8.4-10.2); Carbon Dioxide 25 mmol/L (22.0-30.0); Chloride 101 mmol/L (98-107); Estimated Glomerular Filt Rate 48 ml/min (>60); GFR (African American) 58 ML/MIN (>60); Glucose 231 mg/dl (74-100); Phosphorous 4.4 mg/dl (2.5-4.5); Potassium 4.7 mmoL/L (3.5-5.1); Sodium 132 mmol/L (136-145)
[2023-04-20 13:39] LABS: Creatinine,Urine Random 114 mg/dL (Not Estab.)
[2023-04-20 13:45] LABS: Intact Parathyroid Hormone 56.4 pg/mL (7.5-53.5)
[2023-04-20 13:46] LABS: Bacteria,Urine Trace /lpf; Mucus,Urine Trace /lpf; RBC,Urine Occasional #/hpf (0-3)
[2023-04-20 13:49] LABS: 25-OH Vitamin D, Total 69.4 ng/mL (30-100)
== END ==
LOC: LAB 12:37
PROVIDERS: PCP Family Medicine; Visit Provider Internal Medicine Nephrology
DX: N18.30 Chronic kidney disease, stage 3 unspecified (principal)
CPT/HCPCS: 36415; 80069; 81001; 82306; 82570; 83970; 84155; 85014; 85018; 85048; 85049

== ENCOUNTER 2023-06-26 08:03 | Outpatient (CLI) | payer MEDICARE, SELFPAY ==
[2023-06-26 08:44] LABS: Basophils # 0.1 K/mm3 (0-0.2); Basophils % 0.8 % (0.1-2.0); Eosinophils # 0.2 K/mm3 (0.0-0.4); Eosinophils % 1.9 % (0.1-12.0); Hematocrit 41.2 % (42.0-52.0); Lymphocytes # 7.2 K/mm3 (0.7-4.5); Lymphocytes % 63.4 % (10-50); Mean Corpuscular HGB Conc 31.5 g/dL (31.8-35.4); Mean Corpuscular Hemoglobin 33.5 pg (27.0-31.2); Mean Corpuscular Volume 106.5 fl (80-94); Mean Platelet Volume 9.4 fl (7.4-10.4); Monocytes # 0.5 K/mm3 (0.1-1.0); Monocytes % 4.1 % (1.7-9.3); Neutrophils # 3.4 K/mm3 (1.8-7.8); Neutrophils % 29.7 % (37.0-80.0); Platelet Count 128 K/mm3 (142-424); Red Blood Count 3.87 M/mm3 (4.60-6.20); Red Cell Distribution Width 13.6 % (11.5-17.5); White Blood Count 11.4 K/mm3 (4.8-10.8)
[2023-06-26 08:47] LABS: MANUAL DIFFERENTIAL MANUAL DIFFERENTIAL (MANUAL DIFF)
[2023-06-26 09:30] LABS: Eosinophils % 1 % (0-3); Lymphocytes % 57 % (10-50); Macrocytosis 3+; Monocytes % 4 % (2-9); Neutrophils % 38 % (42-76); Platelet Estimate Slight Decrease; Total Cells Counted 100
== END 2023-06-26 23:59 ==
LOC: LAB 08:04
PROVIDERS: PCP Family Medicine; Visit Provider Internal Medicine Medical Oncology
DX: C91.11 Chronic lymphocytic leukemia of B-cell type in remission (principal); Z79.899 Other long term (current) drug therapy
CPT/HCPCS: 36415; 85007; 85025

== ENCOUNTER 2023-08-22 18:00 | Outpatient (CLI) | payer MEDICARE, SELFPAY ==
[2023-08-22 19:13] LABS: Chloride 102 mmol/L (98-107); Sodium 137 mmol/L (136-145)
[2023-08-22 19:14] LABS: Potassium 5.1 mmoL/L (3.5-5.1)
[2023-08-22 19:16] LABS: Alanine Aminotransferase 48 U/L (12-78); Albumin Level 4.6 g/dl (3.5-5.0); Albumin/Globulin Ratio 2.3 (1.1-1.8); Alkaline Phosphatase 80 U/L (38-126); Anion Gap 11.1 mEq/L (5-15); Aspartate Amino Transferase 113 U/L (17-59); Bilirubin,Total 0.7 mg/dl (0.2-1.3); Blood Urea Nitrogen 38 mg/dl (9-20); Calcium 9.6 mg/dl (8.4-10.2); Carbon Dioxide 29 mmol/L (22.0-30.0); Estimated Glomerular Filt Rate 36 ml/min (>60); GFR (African American) 43 ML/MIN (>60); Glucose 314 mg/dl (74-100); Total Protein,Serum 6.6 g/dl (6.3-8.2)
== END 2023-08-22 23:59 | disposition home or self-care (01) ==
LOC: LAB.DROPOF 08-23 12:34
PROVIDERS: PCP Family Medicine; Visit Provider Family Medicine
DX: I50.9 Heart failure, unspecified (principal)
CPT/HCPCS: 80053

== ENCOUNTER 2023-12-24 11:57 | Outpatient (CLI) | payer MEDICARE, SELFPAY ==
[2023-12-24 12:32] LABS: Basophils # 0.1 K/mm3 (0-0.2); Basophils % 0.5 % (0.1-2.0); Eosinophils # 0.3 K/mm3 (0.0-0.4); Eosinophils % 2.3 % (0.1-12.0); Hematocrit 39.6 % (42.0-52.0); Hemoglobin 12.6 g/dL (14.1-18.0); Lymphocytes # 6.3 K/mm3 (0.7-4.5); Lymphocytes % 56.6 % (10-50); Mean Corpuscular HGB Conc 31.9 g/dL (31.8-35.4); Mean Corpuscular Hemoglobin 33.3 pg (27.0-31.2); Mean Corpuscular Volume 104.4 fl (80-94); Mean Platelet Volume 9.4 fl (7.4-10.4); Monocytes # 0.6 K/mm3 (0.1-1.0); Monocytes % 5.5 % (1.7-9.3); Neutrophils # 3.9 K/mm3 (1.8-7.8); Neutrophils % 35.1 % (37.0-80.0); Platelet Count 151 K/mm3 (142-424); Red Blood Count 3.79 M/mm3 (4.60-6.20); Red Cell Distribution Width 14.2 % (11.5-17.5); White Blood Count 11.1 K/mm3 (4.8-10.8)
[2023-12-24 12:44] LABS: MANUAL DIFFERENTIAL MANUAL DIFFERENTIAL (MANUAL DIFF)
[2023-12-24 12:50] LABS: Albumin Level 4.1 g/dl (3.5-5.0); Chloride 107 mmol/L (98-107); Potassium 5.1 mmoL/L (3.5-5.1); Sodium 137 mmol/L (136-145)
[2023-12-24 12:53] LABS: Alanine Aminotransferase 36 U/L (12-78); Alkaline Phosphatase 62 U/L (38-126); Anion Gap 14.1 mEq/L (5-15); Aspartate Amino Transferase 37 U/L (17-59); Bilirubin,Total 0.7 mg/dl (0.2-1.3); Blood Urea Nitrogen 33 mg/dl (9-20); Calcium 8.8 mg/dl (8.4-10.2); Carbon Dioxide 21 mmol/L (22.0-30.0); Estimated Glomerular Filt Rate 48 ml/min (>60); GFR (African American) 58 ML/MIN (>60); Globulin 2.1 g/dL (1.3-3.2); Glucose 135 mg/dl (74-100); Total Protein,Serum 6.2 g/dl (6.3-8.2)
[2023-12-24 13:10] LABS: Eosinophils % 2 % (0-3); Lymphocytes % 63 % (10-50); Monocytes % 5 % (2-9); Neutrophils % 30 % (42-76); RBC Morphology Normal; Total Cells Counted 100
[2023-12-24 13:11] LABS: Platelet Estimate Normal
== END 2023-12-24 23:59 | disposition home or self-care (01) ==
PROVIDERS: PCP Family Medicine; Visit Provider Internal Medicine Medical Oncology
DX: F32.0 Major depressive disorder, single episode, mild (principal); C91.10 Chronic lymphocytic leukemia of B-cell type not having achieved remission
CPT/HCPCS: 36415; 80053; 85007; 85025; 85027

== ENCOUNTER 2024-06-04 12:40 | Outpatient (CLI) | payer MEDICARE, SELFPAY ==
[2024-06-04 18:14] LABS: MANUAL DIFFERENTIAL MANUAL DIFFERENTIAL (MANUAL DIFF)
[2024-06-04 18:23] LABS: Basophils % 0.2 % (0.1-2.0); Eosinophils # 0.1 K/mm3 (0.0-0.4); Eosinophils % 0.9 % (0.1-12.0); Hematocrit 39.6 % (42.0-52.0); Hemoglobin 12.9 g/dL (14.1-18.0); Lymphocytes # 8.9 K/mm3 (0.7-4.5); Lymphocytes % 67.2 % (10-50); Mean Corpuscular HGB Conc 32.6 g/dL (31.8-35.4); Mean Corpuscular Hemoglobin 33.6 pg (27.0-31.2); Mean Corpuscular Volume 103.1 fl (80-94); Mean Platelet Volume 11.9 fl (7.4-10.4); Monocytes # 0.7 K/mm3 (0.1-1.0); Monocytes % 5.3 % (1.7-9.3); Neutrophils # 3.4 K/mm3 (1.8-7.8); Neutrophils % 26.2 % (37.0-80.0); Platelet Count 129 K/mm3 (142-424); Red Blood Count 3.84 M/mm3 (4.60-6.20); Red Cell Distribution Width 13.8 % (11.5-17.5); White Blood Count 13.2 K/mm3 (4.8-10.8)
[2024-06-04 18:42] LABS: Alanine Aminotransferase 34 U/L (12-78); Albumin Level 4.6 g/dl (3.5-5.0); Albumin/Globulin Ratio 2.9 (1.1-1.8); Alkaline Phosphatase 61 U/L (38-126); Anion Gap 15.9 mEq/L (5-15); Aspartate Amino Transferase 36 U/L (17-59); Bilirubin,Total 0.7 mg/dl (0.2-1.3); Blood Urea Nitrogen 25 mg/dl (9-20); Calcium 9.3 mg/dl (8.4-10.2); Carbon Dioxide 25 mmol/L (22.0-30.0); Chloride 103 mmol/L (98-107); Estimated Glomerular Filt Rate 48 ml/min (>60); GFR (African American) 58 ML/MIN (>60); Globulin 1.6 g/dL (1.3-3.2); Glucose 128 mg/dl (74-100); Potassium 4.9 mmoL/L (3.5-5.1); Sodium 139 mmol/L (136-145); Total Protein,Serum 6.2 g/dl (6.3-8.2)
[2024-06-04 18:45] LABS: Lymphocytes % 63 % (10-50); Macrocytosis 1+; Monocytes % 5 % (2-9); Neutrophils % 32 % (42-76); Platelet Estimate Normal; Total Cells Counted 100
== END 2024-06-04 23:59 | disposition home or self-care (01) ==
LOC: LAB.DROPOF 06-05 09:52
PROVIDERS: PCP Family Medicine; Visit Provider Family Medicine
DX: N18.9 Chronic kidney disease, unspecified (principal); C91.10 Chronic lymphocytic leukemia of B-cell type not having achieved remission; I50.9 Heart failure, unspecified; G62.9 Polyneuropathy, unspecified; I25.118 Atherosclerotic heart disease of native coronary artery with other forms of angina pectoris
CPT/HCPCS: 80053; 85007; 85014; 85018; 85048; 85049

== ENCOUNTER 2024-06-08 09:26 | Outpatient (CLI) | payer MEDICARE, SELFPAY ==
[2024-06-08 09:41] LABS: Microscopic, Urine URINE MICROSCOPIC (MICROSCOPIC)
[2024-06-08 09:53] LABS: Appearance,Urine CLEAR (Clear); Bilirubin,Urine Negative (Negative); Blood, Urine Negative (Negative); Color,Urine YELLOW (Yellow); Glucose,Urine (UA) 3+ (Negative); Ketones,Urine Negative (Negative); Leukocyte Esterase,Urine Negative (Negative); Nitrate,Urine Negative (Negative); Protein,Urine Negative (Negative); Specific Gravity, Urine 1.025 (1.005-1.030); Urobilinogen,Urine 0.2 EU/dl (0.2)
[2024-06-08 09:58] LABS: Creatinine,Urine Random 68 mg/dL (Not Estab.)
== END 2024-06-08 23:59 | disposition home or self-care (01) ==
LOC: LAB 09:28
PROVIDERS: Internal Medicine Nephrology; PCP Family Medicine; Visit Provider Family Medicine
DX: N18.30 Chronic kidney disease, stage 3 unspecified (principal)
CPT/HCPCS: 81001; 82570; 84156

== ENCOUNTER 2024-08-27 13:00 | Outpatient (CLI) | payer MEDICARE, SELFPAY ==
[2024-08-27 19:43] LABS: Anion Gap 9.6 mEq/L (5-15); Blood Urea Nitrogen 24 mg/dl (9-20); Calcium 9.3 mg/dl (8.4-10.2); Carbon Dioxide 25 mmol/L (22.0-30.0); Chloride 107 mmol/L (98-107); Estimated Glomerular Filt Rate 52 ml/min (>60); GFR (African American) 63 ML/MIN (>60); Glucose 101 mg/dl (74-100); Potassium 4.6 mmoL/L (3.5-5.1); Sodium 137 mmol/L (136-145)
[2024-08-27 20:28] LABS: Vitamin B12 343 pg/mL (239-931)
== END 2024-08-27 23:59 | disposition home or self-care (01) ==
LOC: LAB.DROPOF 08-28 12:05
PROVIDERS: PCP Family Medicine; Visit Provider Family Medicine
DX: R20.2 Paresthesia of skin (principal); R53.1 Weakness; Z86.79 Personal history of other diseases of the circulatory system
CPT/HCPCS: 80048; 82607

== ENCOUNTER 2024-12-19 10:06 | Outpatient (CLI) | payer MEDICARE, SELFPAY ==
--- OUTSIDE RECORDS SUMMARY | 2024-12-06 10:30 | XMS_ITS | Encounter Summary ---
Author Organization [facility] Address [address] [place] [address] Care Team Providers Care Education Rep Name Role Phone Airam Horne RN Unavailable [phone] Redd Naidu MD Unavailable Unavailable Asher Whitmore MD Unavailable Unavailable Ochoa Lockwood MD Unavailable Unavailable Poonam Gannon MD Unavailable [phone] Chrissy So RN Unavailable Unavailab Magdalene Pinzon NP Unavailable [phone] Terell Jain RN Unavailable Isaac Bryan MD Unavailable [phone] Artem Elizabeth MD Unavailable [phone] Man Farrell MD Primary Care Provider [phone] Camilo Parada MD Unavailable [phone] Addis Walton Unavailable [phone] Reason for Visit * Reason Comments Diabetes Encounter Details Date Type Department Care Team (Late st Contact Info) Description 12/06/2024 10:30 AM EDT Office Visit [facility] - Diabetes [facility] Endocrine [facility], [place] [address] [facility] [address] [place] [address] Poonam Gannon MD [address] [facility] [address] [place] [address] Type 2 diabetes mellitus without complication, with long-term current use of insulin ([facility]) (Primary Dx); Essential hypertension; Stage 3b chronic kidney disease (CMS/[facility]); Hyperlipidemia LDL goal <70 Social History Tobacco Use Types Packs/Day Years Used Date Smoking Tobacco: Former Cigarettes 1 1965 Smokeless Tobacco: Never Alcohol Use Standard Drinks/Week Comments Not Currently 1 (1 standard drink = 0.6 oz pur e alcohol) 1 drink a day Sex and Gender Information Value Date Recorded Sex Assigned at Male 05/06/2020 4:01 PM EST Legal Sex Male 10:29 AM EDT Gender Identity Male 05/06/2020 4:01 PM EST Sexual Orientation Straight 05/19/2023 10 :30 AM EST documented as of this encounter Last Filed Vital Signs Vital Sign Reading Time Taken Comments Blood Pressure 100/62 12/06/2024 10:15 AM EDT Pulse - - Temperature - - Respiratory Rate - - Oxygen Saturation - - Inhaled Oxygen Concentration - - Weight 73.5 kg (162 lb) 12/06/2024 10:15 AM EDT Height 175.3 cm (5' 9 ) 12/06/2024 10:15 AM EDT Body Mass Index 23.92 12/06/2024 10:15 AM EDT documented in this encounter Functional Status * Are you blind or do you have difficulty seeing, even when wearing glasses? Answer Date of Assessment Author No 07/25/2021 2:09 PM EDT Selam Tapia RN * Do you have serious difficulty walking or climbing stairs? Answer Date of Assessment Author No 07/25/2021 2:09 PM EDT Selam Tapia RN * Do you have difficulty dressing or bathing? Answer Date of Assessment Author No 07/25/2021 2:09 PM EDT Selam Tapia RN * Because of a physical, mental, or emotional condition, do you have difficulty doing errands alone such as a visiting a doctor's office or shopping? Answer Date of Assessment Author No 07/25/2021 2:09 PM EDT Selam Tapia RN documented as of this encounter Mental Status * Because of a physical, mental, or emotional condition, do you have serious difficulty concentrating, remembering, or making decisions? Answer Entry Date Author No 07/25/2021 2:09 PM EDT Selam Tapia RN documented in this encounter Patient Instructions * Patient Instructions* Poonam Gannon MD - 12/06/2024 10:30 AM EDT Diabetes Discharge Instructions: Lab Results Component Value Date HGBA1C 6.3 (ABN) 12/06/2024 HGBA1C 6.2 (ABN) 08/02/2024 HGBA1C 6.4 (ABN) 04/02/2024 1. Continue debora sensor 2. Change Lantus 22 units daily 3. ozempic 0.25 mg once a week at night-- 4. Jardiance 12.5 (0.5 tab of 25) mg a day 5. Goal carbs-- continues to work on diet and limiting in carbs Meals 45 grams Snacks 15 grams Goal blood sugar Fasting and before meals 100-150 2-hour post-meal <180 Bedtime 100-160 documented in this encounter Progress Notes * Poonam Gannon MD - 12/06/2024 10:30 AM EDT 12/06/2024 Provider: Poonam Gannon MD History of Present Illness Chief Complaint Patient presents with Diabetes Riccardo Roldan is a 89 y.o. male (: 1935) with a past medical history of CAD s/p CABG, HTN, HLD, CKD-3, and LISANDRA who is seen for management of DM-2. He was dx with DM in the early and initially managed with diet and lifestyle, then transferred to metformin until CKD in 2016. DM complications: CKD3a, neuropathy, CAD DM education: stiff neck loader about 2018 History of Present Illness He experiences more hypoglycemic episodes, with a recent blood glucose level of 80 mg/dL upon waking. After taking a glucose tablet, his level increased to 100 mg/dL by breakfast. He does not experience typical hypoglycemic symptoms but feels more tired. His diabetes management includes 28 units ofLantus daily, 0.25 mg of Ozempic weekly, and half a tablet of 25 mg Jardiance. He has peripheral neuropathy with numbness in both feet and a sensation of coldness, especially at night. He experiences a sensation of being off balance after sitting for extended periods. No pain in legs when walking, but knee pain is present. His diet consists of three meals a day, with occasional overeating during family gatherings, leading to temporary blood sugar spikes, such as a recent level of 285 mg/dL. His skin is thin and takes about three weeks to heal from bumps. He has chronic kidney disease stage 3, hypertension, hyperlipidemia, and coronary artery disease. Current medications include atorvastatin 80 mg and Zetia. His most recent creatinine level was 1.5 mg/dL, and his LDL cholesterol was 58 mg/dL. 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 -CKD-3 -Gout -Basal cell Ca resection -CLL - CHF - Carotid PVD Diabetes History: DM Type 2 Date of Diagnosis: Diet Management: Restricts Carbohydrates trying to eat 3 meals, sometimes larger portions BF- goetta, oats, and few days eggs and toast, or just toast LN- salads, veggies, fruits DN- meat starch Exercise: Active Lifestyle- not much lately Glucose Monitoring Glucose Monitoring: Meter Download and See Scanned Log Type of Device: Accucheck Rita/ Debora 3 CGM Glucose Testing Frequency: 2 times a day [address], GMI 6.7% glc comfort 34% TIR 75% Mild high 18% Severe 3% Mild low 2% severe low 2 % Sugars trend down overnight and some low readings and mostly in target but some after dinner sugarsin 200-300 Hypoglycemic Events Severity: mild, Timing: more overnight Symptom Threshold: 70 Hypoglycemia Symptoms: Dizziness, Shaking and Sweating Diabetic Eye Exam Date of last Exam: 09/14 every 6 months- no retinopathy Physician: Sawyer Kapoor Dental Exam: Podiatry Exam: Dr. 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 Hyperlipidemia Hypertension Kidney disease Myocardial infarction Presbyopia 03/11/2016 Ptosis of eyelid 03/09/2015 S/P TAVR (transcatheter aortic valve replacement) 26 mm Med[employer]onic EVOLUT PRO Sleep apnea CPAP 12-15 yrs Type 2 diabetes mellitus Type 2 diabetes mellitus without complication 03/09/2015 Past Surgical History: Procedure Laterality Date coronary intervention 04/24/2000 w/ stents HX CATARACT REMOVAL IOL OS 04/2009, JWC IOL OD 06/2009, JWC HX CORONARY ARTERY BYPASS GRAFT 04/24/1990 x6; stents x3 HX EYE SURGERY HX OTHER SURGICAL HISTORY (aka OTHER) 01/2018 3 tendons right knee reattached HX QUADRACEPS TENDON REPAIR Right Rupture/repair HX TONSILLECTOMY AND ADENOIDECTOMY INTERVENTION - CHRONIC TOTAL OCCLUSION 12/08/2021 CHRONIC TOTAL OCCLUSION performed by Artem Elizabeth MD at [facility] CARDIAC CENTRAL OFFICE FRAME WIRER INTERVENTION - CORONARY 05/18/2023 INTERVENTION - CORONARY performed by Ochoa Lockwood MD at [facility] CARDIAC CENTRAL OFFICE FRAME WIRER INTERVENTION - CORONARY 09/14/2021 INTERVENTION - CORONARY performed by Artem Elizabeth MD at [facility] CARDIAC CENTRAL OFFICE FRAME WIRER IVUS 12/08/2021 IVUS performed by Artem Elizabeth MD at [facility] CARDIAC CENTRAL OFFICE FRAME WIRER LEFT & RIGHT HEART CATH 03/25/2020 LEFT & RIGHT HEART CATH performed by Asher Whitmore MD at [facility] CARDIAC CENTRAL OFFICE FRAME WIRER LEFT HEART CATH 09/14/2021 LEFT HEART CATH w/SELECT COR performed by Artem Elizabeth MD at [facility] CARDIAC CENTRAL OFFICE FRAME WIRER LEFT HEART CATH,COR ANGIO,NO LV GRAM,ALCOHOL SEPTAL ABLATION 09/26/2018 Severe. 3V CAD, BOYD-LAD OK, LCX stent OK, 95% ISR SVG-OM to <20% w POBA, SVG-RC diffuse stenosis as much as 95%, with extensive angioplasty and stent, AV gradient: 20-30 mmHG. LEFT HEART CATH,COR ANGIO,NO LV GRAM,ALCOHOL SEPTAL ABLATION 02/04/2015 NML EF, BOYD-LAD, SVG-RCA patent, SVG-Om2 ostial 80%, med Rx stents to LCxOK SELECTIVE CORONARY ANGIOGRAPHY 12/08/2021 SELECTIVE CORONARY ANGIOGRAPHY performed by Atrem Elizabeth MD at [facility] CARDIAC CENTRAL OFFICE FRAME WIRER SELECTIVE CORONARY BYPASS GRAFT STUDY WITH [facility] 05/18/2023 SELECTIVE CORONARY BYPASS GRAFT STUDY WITH LHC performed by Ochoa Lockwood MD at [facility] CARDIAC CATHLAB SELECTIVE CORONARY BYPASS GRAFT STUDY WITH [facility] 12/08/2021 SELECTIVE CORONARY BYPASS GRAFT STUDY WITH LHC performed by Artem Elizabeth MD at [facility] CARDIAC CENTRAL OFFICE FRAME WIRER SELECTIVE CORONARY BYPASS GRAFT STUDY WITH [facility] 09/14/2021 SELECTIVE CORONARY BYPASS GRAFT STUDY WITH LHC performed by Artem Elizabeth MD at [facility] CARDIAC CENTRAL OFFICE FRAME WIRER SELECTIVE CORONARY BYPASS GRAFT STUDY WITH [facility] 03/25/2020 SELECTIVE CORONARY BYPASS GRAFT STUDY WITH LHC performed by Asher Whitmore MD at [facility] CARDIAC CENTRAL OFFICE FRAME WIRER TAVR FEMORAL APPROACH N/A 05/12/2020 Transcatheter Aortic Valve Replacement using Transfemoral Approach RN SEDATION performed by Ochoa Lockwood MD at [facility] Family History Problem Relation Name Age of Onset Cancer Mother Bone Diabetes Father Prostate Cancer Father Diabetes Sister Hyperlipidemia Sister Heart Disease Sister Hypertension Sister Diabetes Brother Cancer Brother Diabetes Brother Diabetes Paternal Grandmother Review of Systems negative unless noted in HPI/interval Allergies Allergen Reactions William Inhibitors Other (See Comments) Other reaction(s): Other COUGHING COUGHING Current Outpatient Medications Medication Sig Dispense Refill Accu-Chek Guide Glucose Meter [facility] [place] USE WHEN TESTING BLOOD SUGAR DX CODE E11.8 1 Each 0 Accu-Chek Guide test strips Strip TEST BLOOD SUGAR THREE TIMES DAILY DIRECTED 300 Strip 1 apixaban (ELIQUIS) 2.5 mg tab Take 1 Tablet (2.5 mg) by mouth 2 times daily. 180 Tablet 3 atorvastatin (LIPITOR) 80 mg Tablet Take 80 mg by mouth in the morning. 1 by Mouth Before Bed . 90 Tablet 1 blood-glucose sensor (FREESTYLE DEBORA 3 SENSOR) by Does not apply route. calcium polycarbophiL (FIBERCON) 625 mg Tablet Take 1 Tablet by mouth in the morning. Cholecalciferol, Vitamin D3, 25 mcg (1,000 unit) Capsule Take 1 Capsule by mouth in the morning. citalopram (CELEXA) 10 mg tablet Take 10 mg by mouth in the morning. clopidogreL (PLAVIX) 75 mg tablet Take 1 Tablet (75 mg) by mouth daily. 90 Tablet 3 cyanocobalamin, Vitamin B-12, 500 mcg Tablet Take 500 mcg by mouth daily. DropSafe Alcohol Prep Pads Pads, Medicated USE DIRECTED DAILY FOR USE WITH INSULIN PEN 100 Each 3 empagliflozin (Jardiance) 25 mg Tablet Take 12.5 mg by mouth in the morning. ezetimibe (ZETIA) 10 mg Tablet TAKE 1 TABLET EVERY DAY 90 Tablet 2 ferrous sulfate (65 MG IRON) 325 mg (65 mg iron) tablet Take 1 Tablet by mouth 3 days a week. Threetimes a week--M,W,F folic acid (FOLVITE) 1 mg tablet Take 1 mg by mouth in the morning. Insulin Glargine 100 unit/mL (3 mL) Solostar INPN 28 Units by Subcutaneous route nightly. INJECTS 30 UNITS Insulin [place], Disposable, (BD LIDIA) 32 gauge x 5/32 Use with lantus daily 100 Each 3 Lactobac no.41/Bifidobact no.7 (PROBIOTIC-10 PO) Take by mouth. metoprolol tartrate (LOPRESSOR) 25 mg tablet Take 0.5 Tablets (12.5 mg) by mouth 2 times daily. 15 Tablet 0 niacin (NIASPAN) 750 mg Tablet Sustained Release 24 hr Take 750 mg by mouth in the morning. nitroglycerin (NITROSTAT) 0.4 mg SL tablet Take 0.4 mg by mouth every 5 minutes as needed for Chestpain. oxyCODONE-acetaminophen (PERCOCET) 5-325 mg per tablet polyethylene glycol (GLYCOLAX;MIRALAX) 17 gram/dose powder Take 17 g by mouth in the morning. prednisoLONE acetate (PRED FORTE) 1 % suspension Twice a week Ranolazine (Ranexa) 1,000 mg Tablet Sustained Release 12 hr Take 1,000 mg by mouth 2 times daily. 180 Tablet 3 semaglutide (Ozempic) 0.25 mg or 0.5 mg (2 mg/3 mL) Pen Injector 0.25 mg by Subcutaneous route onceweekly. tamsulosin (FLOMAX) 0.4 mg sustained release capsule Pt states he only takes every other day temazepam (RESTORIL) 30 mg capsule Take 30 mg by mouth in the morning. torsemide (DEMADEX) 10 mg tablet Take 10 mg by mouth as needed. ubidecarenone (CO Q-10 PO) Take 1 Tablet by mouth in the morning. valacyclovir HCl (VALTREX PO) Take 500 mg by mouth in the morning. Vitamin A-Vitamin C-Vit E-Se (Super Antioxidant) Capsule Take 1 Capsule by mouth every morning. Super Antioxidant No current facility-administered medications for this visit. BP 100/62 Ht 5' 9 (1.753 m) Wt 162 lb (73.5 kg) BMI 23.92 kg/m?? Body mass index is 23.92 kg/m??. Recent Weights: 12/06/24 1015 Weight: 162 lb (73.5 kg) Physical Exam: General: No acute distress; well-developed; well-nourished; normal facial structure HEENT: Normocephalic; atraumatic; hearing is intact; Fundoscopic exam was not performed Neck: No lymphadenopathy; no thyromegaly; no nodularity Heart: Regular rate and rhythm; no murmurs, rubs, or gallops; No heave Lungs: Clear to auscultation; no wheezes, rhonchi, or rales; no accessory muscle use Chest: Not examined Abdomen: Soft, non-tender, non-distended; no hepatosplenomegaly appreciated; not obese : Not examined Musculoskeletal: Normal tone; ROM grossly intact without pain Neuro: No gross motor deficits; gait intact Skin: Warm; no rashes; no acanthosis nigricans appreciated Psych: Alert and oriented to person, place and time; normal affect; good eye contact Foot Exam: done today Distal pulses are present bilaterally; monofilament testing intact bilaterally; vibratory testing is lost early in R great toe and lost in L great toe altogether; skin is intact, erythema and warmth great toes, dry skin; dystrophic toenails Labs: Last 3 A1c Results: Lab Results Component Value Date HGBA1C 6.3 (ABN) 12/06/2024 HGBA1C 6.2 (ABN) 08/02/2024 HGBA1C 6.4 (ABN) 04/02/2024 Component Latest Ref Rng 08/02/2024 Sodium 135 - 146 mmol/L 140 Potassium 3.5 - 5.1 mmol/L 4.7 Chloride 98 - 110 mmol/L 108 CO2 22 - 29 mmol/L 24 Anion Gap 5 - 13 mmol/L 8 BUN 7 - 25 mg/dL 31 (H) Creatinine 0.50 - 1.30 mg/dL 1.57 (H) Glucose 71 - 99 mg/dL 113 (H) eGFR CKD-EPI 2020 See Note 42 Calcium 8.5 - 10.5 mg/dL 9.0 Total Bilirubin 0.2 - 1.2 mg/dL 0.7 AST 0 - 40 U/L 29 ALT 0 - 60 U/L 25 Alkaline Phosphatase 33 - 140 U/L 56 Total Protein 6.0 - 8.0 g/dL 6.4 Albumin 3.5 - 5.0 g/dL 4.4 Globulin 2.0 - 3.7 g/dL 2.0 Albumin/Globulin Ratio 1.0 - 2.1 2.2 (H) BUN/Creatinine Ratio 20 WBC 4.00 - 12.00 10*3/uL 13.02 (H) RBC 4.20 - 5.80 10*6/uL 3.91 (L) Hemoglobin 13.2 - 17.1 g/dL 13.0 (L) HEMATOCRIT BLOOD 40.0 - 51.0 % 40.4 MCV 80.0 - 100.0 fL 103.3 (H) MCH 27.0 - 33.0 pg 33.2 (H) MCHC 30.0 - 36.0 g/dL 32.2 RDW 11.0 - 15.0 % 13.2 Platelets 140 - 400 10*3/uL 113 (L) MPV 9.0 - 13.0 fL 11.8 Cholesterol 125 - 199 mg/dL 112 (L) LDL Calculated 0 - 100 mg/dL 58 HDL 40 - 180 mg/dL 41 Triglycerides 0 - 149 mg/dL 66 NONHDL Calculated 0 - 129 mg/dL 71 Creatinine, Ur 30.0 - 310.0 mg/dL 89.8 Alb, Ur mg/dL 3.70 Alb Creat Ratio 0 - 30 mg/g creat 41 (H) TSH REFLEX 0.35 - 4.94 uIU/mL 1.26 Legend: (H) High (L) Low Assessment & Plan 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 Peripheral neuropathy with numbness and diminished vibratory sensation, more in left foot. - Reduce Lantus to 22 units. - Monitor blood glucose for postprandial spikes. - Consider increasing Ozempic if spikes occur. Keep 0.25 mg a week for now - Encourage activity to manage neuropathy. - Reassess in four months. Chronic kidney disease stage 3 CKD stage 3 with stable kidney function. Creatinine at 1.5 mg/dL. Hyperlipidemia with history of coronary artery disease Hyperlipidemia well-managed. Total cholesterol <200 mg/dL, LDL 58 mg/dL. - Continue atorvastatin and Zetia. Hypertension Blood pressure controlled at 100/62 mmHg. Anemia, improved Anemia improved with hemoglobin and hematocrit nearing normal. Peripheral Neuropathy Peripheral neuropathy with loss of vibration sense in the feet. Numbness in big toes. Emphasis on foot protection and cautious ambulation. - Advise on foot protection and caution during ambulation. - Encourage use of a cane for stability. Total time (face to face and non-face to face) on the date of the encounter was 30 minutes. Total time was spent reviewing prior external notes and lab/imaging results, making independent interpretations/assessments of the diagnostic results, performing a medically appropriate exam and evaluation, counseling and educating the patient/family/caregiver, and documenting clinical information in the EMR, this excludes time spent on CGM. The patient/family provided verbal consent to the use of ambient listening technology/audio recording during this visit. I reviewed/edited the note before signing. Return to office: 4 mo Poonam Gannon MD Diagnosis and associated Orders ICD-10-CM 1. Type 2 diabetes mellitus without complication, with long-term current use of insulin ([facility]) E11.9 POCT AMB DCA HEMOGLOBIN A1C Z79.4 2. Essential hypertension I10 3. Stage 3b chronic kidney disease ([facility]) N18.32 4. Hyperlipidemia LDL goal <70 E78.5 CC: Man Farrell MD documented in this encounter Plan of Treatment Upcoming Encounters Date Type Department Care Team (Late st Contact Info) Description 01/13/2025 10:15 AM EDT Appointment [facility] - Heart & Vascular, [facility] [address] [place] [id number] Artem Elizabeth MD [address] [place], [place] [id number] 04/04/2025 10:00 AM EST Appointment [facility], [place] [address] [facility] [address] [place] [address] Poonam Gannon MD [address] [place], [place] [id number] documented as of this encounter Goals Goal Patient Goal Type Associated Problems Recent Progress Patient-Stated? Author Increase physical activity Lifestyle No Clari Baird BS MEd documented as of this encounter Procedures Procedure Name Priority Date/Time Associated Diagnosis Comments POCT AMB DCA HEMOGLOBIN A1C Routine 12/06/2024 10:20 AM EDT Type 2 diabetes mellitus without complication, with long-term current use of insulin (CMS/[facility]) documented in this encounter Results * (ABNORMAL) POCT AMB DCA HEMOGLOBIN A1C (12/06/2024 10:20 AM EDT) Hgb A1C 6.3(A) 4.0 - 5.6 % 12/06/2024 10:2 0 AM EDT Poonam Gannon MD AMB POINT OF CARE Final R esult documented in this encounter Visit Diagnoses Diagnosis Type 2 diabetes mellitus without complication, with long-term current use of insulin (CMS/HCC)- Primary Essential hypertension Stage 3b chronic kidney disease (CMS/HCC) Hyperlipidemia LDL goal <70 Other and unspecified hyperlipidemia documented in this encounter Care Teams Education Rep Relationship Specialty Start Date End Date Man Farrell MD [address] [place] [address] PCP - General Family Medicine 05/31/21 [facility] RN Registered Nurse Cardiology 03/20/20 Redd Naidu MD Consulting Physician Interventional Cardiology 03/20/20 Asher Whitmore MD Interventional Cardiology 03/23/20 Ochoa Lockwood MD Interventional Cardiology 06/16/20 Poonam Gannon MD [address] [place] [address] Endocrinology/Diabetes/M etabolism 06/23/20 Chrissy So, CURT Registered Nurse 06/25/20 Magdalene Ibarra NP [address] [employer] [place] [address] Nurse Practitioner Nurse Practitioner, Acute Care 07/27/20 Terell Jain, CURT [address] [place] [address] Registered Nurse 09/23/20 Isaac Bryan MD [address] [place] [address] Cardiology 12/29/20 Artem Elizabeth MD [address] [place] [address] Interventional Cardiology 05/31/21 Camilo Parada MD [address] [facility] [address] [place], [place] [id number] Cardiology 07/25/21 Addis Walton PA [address] [place] [address] Cardiology 11/23/21 documented as of this encounter
--- OUTSIDE RECORDS SUMMARY | 2024-12-19 10:10 | XMS_ITS | Encounter Summary ---
Author Organization [employer] ([place], [place], [place], [place]) Address [address] [place] [address] Care Team Providers Care Ppa Teacher Name Role Phone Unavailable Primary Care Provider Unavailabl e Encounter Details Date Type Department Care Team (Late st Contact Info) Description 03/12/2019 Transcribed Document [facility] [place] [address] [place] [address] ProviderDakotah MD [address] [place] [address] Social History Tobacco Use Types Packs/Day Years Used Date Smoking Tobacco: Never Assessed Sex and Gender Information Value Date Recorded Sex Assigned at Not on file Legal Sex Male 6:48 PM CDT Gender Identity Not on file Sexual Orientation Not on file documented as of this encounter Miscellaneous Notes * Cerner Conversion Note - Historical ProviderMD - 03/12/2019 7:16 AM 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 Adult Entered On: 03/12/2019 7:23 EST Performed On: 03/12/2019 7:16 EST by RANJEET ABREU, RN Height and Weight, Clinical Dosing Height Source : Stated Height Entry Format : [place] Height, Feet : 5 ft(Converted to: 152 cm, 60 Inch) Height, Inches : 9 Inch(Converted to: 0 ft 9 Inch, 22.86 cm) Clinical Height : 175.26 cm Weight Source : Standing scale Weight Entry Format : [place] Clinical Dosing Weight : 86.36 kg Weight, Pounds : 190 lb Body Surface Area (BSA) : 2.02 m2 Body Mass Index : 28.1 kg/m2 (HI) [place] Body Weight : 70 kg RANJEET ABREU RN - 03/12/2019 7:16 EST Health Histories Smoking Status : Former smoker, quit more than 30 days ago Smokeless Tobacco Status : Never RANJEET ABREU RN - 03/12/2019 7:16 EST Social History (As Of: 03/12/2019 07:23:39 EST) Tobacco: Former smoker, quit more than 30 days ago Smoking Status. Never Smokeless Tobacco Status. Years of Use: 10. Last Used: 1968. (Last Updated: 01/17/2019 03:53:02 EDT by DAVID MONCADA, RN) Alcohol: Alcohol Use History Yes. Alcohol Use Frequency Socially. (Last Updated: 02/04/2015 09:11:25 EDT by TOM POLANCO RN) Substance Abuse: Drug Use Hx: No. (Last Updated: 09/26/2018 07:27:16 EDT by ANGEL PITTMAN RN) Infectious Disease History Infectious Disease History : Chicken pox/Shingles, Herpes, Measles, Mumps, Other: Impetigo Fever/Chills Last 48 Hours : No Travel To Regions with Travel Advisories : No Travel Outside [place] Within Last 30 Days : No Contact With Traveler to Advisory Region : No Tuberculosis Symptoms : None RANJEET ABREU RN - 03/12/2019 7:16 EST Anesthesia/Transfusion History Family History of Anesthesia Reaction : No prior transfusion(s) Blood Transfusion Acceptable to Patient : Yes Transfusion History : Prior anesthesia without reaction Family History of Anesthesia Reaction : None RANJEET ABREU RN - 03/12/2019 7:16 EST Functional Assessment Living Situation : Home Patient Lives With : Spouse Current Home Treatments : CPAP RANJEET ABREU RN - 03/12/2019 7:16 EST [place] Suicide Severity Rating Scale (C-SSRS) CSSRS Past Month Wish to be : No CSSRS Past Month Suicidal Thoughts : No CSSRS Lifetime Suicide Behavior : No Suicide Severity Rating Score : 0 Suicide Severity Rating : No Additional Care Required at this time RANJEET ABRUE RN - 03/12/2019 7:16 EST Psychosocial History Currently in Unsafe Situation : No RANJEET ABREU RN - 03/12/2019 7:16 EST Advance Directive Patient has Advance Directive *Q : Yes, Advance Directive not with the patient Advance Directive Type : CPR directive, Living will, Medical durable power of 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 machine operator (proxy) Copy Advance Directive Verified/on Chart : No RANJEET ABREU RN - 03/12/2019 7:16 EST Teaching/Learning Assessment Barriers To Learning : None evident Individuals Taught : Patient, Child Readiness to Learn : Cooperative Baseline Knowledge of Topic : Limited Readiness to Learn : Demonstration, Explanation Learning Style Preferences Patient : None Learning Style Preferences Family : None RANJEET ABREU RN - 03/12/2019 7:16 EST Education Topics, Periop Preadmission Perioperative Education Grid Arrival Time/Place : Verbalizes understanding, Returns demonstration CAUTI : Verbalizes understanding, Returns demonstration Central Lines : Verbalizes understanding, Returns demonstration CHG Preoperative Bathing/Cloths : Verbalizes understanding, Returns demonstration Falls : Verbalizes understanding, Returns demonstration Incentive Spirometry : Verbalizes understanding, Returns demonstration Infection Control : Verbalizes understanding, Returns demonstration IV's : Verbalizes understanding, Returns demonstration NPO Status/Directions : Verbalizes understanding, Returns demonstration Pain Management : Verbalizes understanding, Returns demonstration Postoperative Care Preparations : Verbalizes understanding, Returns demonstration Preprocedure Preparations : Verbalizes understanding, Returns demonstration Preprocedure Tests/Labs : Verbalizes understanding, Returns demonstration Remove Body Piercings : Verbalizes understanding, Returns demonstration Responsible Adult : Verbalizes understanding, Returns demonstration Take/Hold Medications Pre-Procedure : Verbalizes understanding, Returns demonstration Other : Verbalizes understanding, Returns demonstration RANJEET ABREU RN - 03/12/2019 7:16 EST General Info Arrived From : Home Mode of Arrival on Unit : Ambulatory Legal Guardian : Daughter Legal Guardian : No Support Person/Pt Rep Name : Leslie Chang daughter or Renea Zarate , daughter Support Person/Pt Rep Contact Information : [phone] Leslie or Renea [phone] Want Family/Rep/Phys Notified of Admit : No Emergency Contact #1 : see above Emergency Contact #1 Phone Number : na Emergency Contact #1 Relationship : na Emergency Contact #2 : none Emergency Contact #2 Phone Number : na Emergency Contact #2 Relationship : na Primary Language : Maltese Preferred Communication Mode : Verbal Communication Barrier : None RANJEET ABREU, RN - 03/12/2019 7:16 EST Vital Measurements Temperature Source : Temporal artery scanning Temperature Mode : Fahrenheit Temperature, Fahrenheit : 97.8 Deg F Clinical Temperature, C : 36.6 Deg C Peripheral Pulse Rate : 67 bpm Systolic Blood Pressure : 120 mmHg Diastolic Blood Pressure : 64 mmHg Oxygen Saturation : 97 % Oxygen Therapy Mode : Room air RANJEET ABREU RN - 03/12/2019 7:16 EST Sleep Apnea Risk Assmt BiPAP/CPAP Ordered for Home Use : Yes Hx of Obstructive Sleep Apnea Diagnosis : Yes BiPAP/CPAP Used at Home : Yes Age over 50 Years Old : Yes Gender Male : Yes RANJEET ABREU RN - 03/12/2019 7:16 EST Jaun Scale Jaun Sensory Perception : No impairment Jaun Moisture : Rarely moist Jaun Activity : Walks occasionally Jaun Mobility : No limitation Jaun Nutrition : Adequate Jaun Friction and Shear : No apparent problem Jaun Score : 21 RANJEET ABREU, CURT - 03/12/2019 7:16 EST Oxygen Therapy Oxygen Therapy Mode : Room air RANJEET ABREU, RN - 03/12/2019 7:16 EST Pain Assessment Pain Assessment : Initial assessment Pain Scale Used : 0-10 Scale RANJEET ABREU, CURT - 03/12/2019 7:16 EST Fall Risk Scales ABCs Fall Injury Risk Identification : None GODINEZ Hx Falls Immediate/Within 3 Months : Yes Godinez Secondary Diagnosis : No GODINEZ Use of Ambulatory Aid : None GODINEZ IV Therapy or IV Access : Yes Godinez Gait/Transferring : Normal, bedrest, immobile Godinez Mental Status : Oriented to own ability Godinez Fall Risk Score : 45 GODINEZ Fall Scale Risk Level : 25-45 Medium Risk [place] Fall Interventions : Adequate lighting, Bed in low position, Call device within reach, Hourly comfort/safety rounds, Non-slip footwear, Personal items within reach, Room free of clutter/spills, Wheels locked, Wires/Cords secured RANJEET ABREU, RN - 03/12/2019 7:16 EST Valuables and Belongings Valuables and Belongings : Clothing, Jewelry, Personal devices, Personal items, No assistive devices, No respiratory devices, No medications Clothing : Common streetwear Clothing Disposition : Bedside Personal Device Disposition : With family, With patient, Other: hearing aid with pt, glasses with family Jewelry : Ring Jewelry Disposition : With patient, Declines to send to security/safe Personal Devices : Glasses, Hearing aid, left, Hearing aid, right Personal Items : Cell phone, Wallet Personal Items Disposition : With patient, Declines to send to security/safe Belongings Sent Home With : Renea , daughter Belongings Disposition Comment : pt denies having any valuabes that need locked in hospital safe RANJEET ABREU, CURT - 03/12/2019 7:16 EST Pain Scale Intensity : 0 RANJEET ABREU, RN - 03/12/2019 7:16 EST Image 4 - Images currently included in the form version of this document have not been included in the text rendition version of the form. documented in this encounter Plan of Treatment Not on file documented as of this encounter Visit Diagnoses Not on filedocumented in this encounter
--- OUTSIDE RECORDS SUMMARY | 2024-12-19 10:10 | XMS_ITS | Encounter Summary ---
Author Organization [employer] ([place], [place], [place], [place]) Address [address] [place] [address] Care Team Providers Care Chicken Vaccinator Name Role Phone Unavailable Primary Care Provider Unavailabl e Encounter Details Date Type Department Care Team (Late st Contact Info) Description 03/12/2019 Transcribed Document [facility] [place] [address] [place] [address] ProviderDakotah MD [address] [place] [address] Social History Tobacco Use Types Packs/Day Years Used Date Smoking Tobacco: Never Assessed Sex and Gender Information Value Date Recorded Sex Assigned at Not on file Legal Sex Male 6:48 PM CDT Gender Identity Not on file Sexual Orientation Not on file documented as of this encounter Miscellaneous Notes * Cerner Conversion Note - Historical ProviderMD - 03/12/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 Alexis at bedside assessing pt, stated plan was to Medically manage condition and ok to proceed wth d/c today, Dr. Correa notified of plan, stated ok to d/c home now and pt to resume effient today, notified that pt hasn't taken effient in 10days, stated pt to resume effient without needing a loading dose, pt instructed on resuming effient today at the previous dose, pt verbalized understanding, RANJEET ABREU, RN - 03/12/2019 13:58 EST Electronically signed by [facility] Conversion Editor Book Jostin at 08/07/2022 11:27 PM CDT documented in this encounter Plan of Treatment Not on file documented as of this encounter Visit Diagnoses Not on filedocumented in this encounter
--- OUTSIDE RECORDS SUMMARY | 2024-12-19 10:10 | XMS_ITS | Encounter Summary ---
Author Organization [facility] Address [address] [place] [address] Care Team Providers Care Post Tensioning Ironworker Helper Name Role Phone Airam Horne RN Unavailable [phone] Redd Naidu MD Unavailable Unavailable Asher Whitmore MD Unavailable Unavailable Kary Limon NP Unavailable UnavailOchoa Maharaj MD Unavailable Unavailable Poonam Gannon MD Unavailable [phone] Chrissy So RN Unavailable Unavailab Magdalene Pinzon NP Unavailable [phone] Terell Jain RN Unavailable Isaac Bryan MD Unavailable [phone] Artem Elizabeth MD Unavailable [phone] Man Farrell MD Primary Care Provider [phone] Camilo Parada MD Unavailable [phone] Addis Walton Unavailable [phone] Reason for Visit * Reason Onset Date Comments Medications Refill 06/24/2022 Encounter Details Date Type Department Care Team (Late st Contact Info) Description 06/24/2022 Refill [facility] - [facility], [place] [address] [place] [id number] Poonam Gannon MD [address] [place] [address] Medications Refill Social History Tobacco Use Types Packs/Day Years Used Date Smoking Tobacco: Former Cigarettes 1 826 - 7679 Smokeless Tobacco: Never Alcohol Use Standard Drinks/Week [...] AM EST documented as of this encounter Functional Status * Are you [...] Selam Tapia RN documented in this encounter Miscellaneous Notes * Telephone Encounter - Erica Farrell - 06/24/2022 11:57 AM ESTSummary: REFILL REFILL REQUEST REC'D VIA FAX. Last Office Visit:Nov 30 Next Office Visit:07/21/2022 documented in this encounter Plan of Treatment Upcoming Encounters Date Type Department Care Team (Late st Contact Info) Description 01/13/2025 10:15 AM EDT Appointment [facility] Physicians - Heart & Vascular, [place] [address] [place] [id number] Artem Elizabeth MD [address] [place], [place] [id number] 04/04/2025 10:00 AM EST Appointment [facility], [place] [address] [facility] [address] [place] [address] Poonam Gannon MD [address] [place] [address] documented as of this encounter Goals Goal Patient Goal Type Associated Problems Recent Progress Patient-Stated? 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, with long-term current use of insulin ([facility]) documented in this encounter Care Teams Post Tensioning Ironworker Helper Relationship Specialty Start Date End Date Man Farrell MD [address] [place] [address] [place] [address] PCP - General Family Medicine 05/31/21 Coleen, Airam Flores RN Registered Nurse Cardiology 03/20/20 Redd Naidu MD Consulting Physician Interventional Cardiology 03/20/20 Asher Whitmore MD Interventional Cardiology 03/23/20 Kary Limon NP Oncology Nurse Navigator Nurse Practitioner 03/27/20 04/05/23 Ochoa Lockwood MD Interventional Cardiology 06/16/20 Poonam Gannon MD [address] [place], [place] [id number] Endocrinology/Diabetes/ Metabolism 06/23/20 Chrissy So, CURT Registered Nurse 06/25/20 Magdalene Ibarra NP [address] [employer] [place] [address] Nurse Practitioner Nurse Practitioner, Acute Care 07/27/20 Terell Jain RN [address] [place] [address] Registered Nurse 09/23/20 Isaac Bryan MD [address] [place] [address] Cardiology 12/29/20 Artem Elizabeth MD [address] [place] [address] Interventional Cardiology 05/31/21 Camilo Parada MD [address] [facility] [address] [place], [place] [id number] Cardiology 07/25/21 Addis Walton PA [address] [place] [address] Cardiology 11/23/21 documented as of this encounter
--- OUTSIDE RECORDS SUMMARY | 2024-12-19 10:10 | XMS_ITS | Encounter Summary ---
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 Name Role Phone Unavailable Primary Care Provider Unavailabl e Encounter Details Date Type Department Care Team (Late st Contact Info) Description 03/12/2019 Transcribed Document [facility] [place] [facility] [address] [place] [address] ProviderDakotah MD [address] [place] [address] Social History Tobacco Use Types Packs/Day Years Used Date Smoking Tobacco: Never Assessed Sex and Gender Information Value Date Recorded Sex Assigned at Not on file Legal Sex Male 6:48 PM CDT Gender Identity Not on file Sexual Orientation Not on file documented as of this encounter Miscellaneous Notes * Cerner Conversion Note - Dakotah Higgins MD - 03/12/2019 1:49 PM WEBSPH[employer] CONSULTANT [facility] [place] [address] PROSPER ROLDAN :1935 Visit Time:03/12/2019 Your Visit Summary Your Care Team Admitting Physician - ERICKA SHORE MD-CAR Attending Physician - ERICKA SHORE MD-INA Primary Care Physician - ERICKA MONTERO MD-[facility] Referring Physician - ERICKA SHORE MD-CAR Your Diagnosis Angina pectoris, Angina pectoris, unspecified, Angina pectoris, unspecified Aortic valve disease Discharge Vitals Heart Rate (Monitored) 72 Respiratory Rate 20 Blood Pressure 162/84 What to do next Instructions From Your Care Team Do not drive for the next 24 hours. No strenuous activity and no heavy lifting, pushing, or pulling of greater than 10lbs for the next 7 days. Monitor groin site for any signs or symptoms of infection, if noted, call your doctor. Monitor groin site for any signs of bleeding, if noted apply manual pressure to groin site immediately and call 911. Resume Effient today. Mynx booklet given to patient. Remove dressing in 24 hours. May shower in 24 hours. No hot tubs, tub baths, or swimming until site heals. Follow-Up Appointments Follow Up with ERICKA SOHRE When 03/28/2019 09:45 AM EST Where: [address] [place] [address]- [phone] Business (1) Medications What How Much When Instructions Next Dose lisinopril 2.5 Milligram(s) Oral Every Evening alogliptin (alogliptin 12.5 mg oral tablet) 1 Tablet(s) Oral Every Day aspirin (Aspir 81) 81 Milligram(s) Oral Every Day atenolol 25 Milligram(s) Oral Every Day atorvastatin (Lipitor) 40 Milligram(s) Oral At Bedtime cholecalciferol (cholecalciferol 1000 intl units oral tablet) 1 Tablet(s) Oral Every Day ferrous sulfate 325 Milligram(s) Oral Monday, Monday, Monday folic acid (folic acid 1 mg oral tablet) 1 Tablet(s) Oral Every Day glimepiride (glimepiride 1 mg oral tablet) 2 Tablet(s) Oral Two Times A Day insulin glargine (Lantus Solostar Pen 100 units/ mL subcutaneous solution) 25 Unites SubCutaneous Every Day isosorbide mononitrate (isosorbide mononitrate extended release) 120 Milligram(s) Oral Every Morning loteprednol ophthalmic (Inveltys 1% ophthalmic suspension) 1 Drop(s) Eye Left Three Times A Day multivitamin with minerals (Antioxidant Formula oral tablet) 1 Tablet(s) Oral Every Day niacin (Slo-Niacin 750 mg oral tablet, extended release) 1 Tablet(s) Oral At Bedtime nitroglycerin (Nitrostat 0.4 mg sublingual tablet) 1 Tablet(s) SubLINgual Every 5 minutes as needed for as needed for chest pain polycarbophil (Fiber Laxative 625 mg oral tablet) 2 tabs Oral Every Morning ranolazine (Ranexa) 1,000 Milligram(s) Oral Two Times A Day temazepam (Restoril) 30 Milligram(s) Oral At Bedtime testosterone (Depo-Testosterone 200 mg/ mL intramuscular solution) 1 Milliliter(s) IntraMuscular Every 3 Weeks ubiquinone (CoQ10) 100 Milligram(s) Oral Every Day valACYclovir (valACYclovir 500 mg oral tablet) 1 Tablet(s) Oral Every Day Take your medications faithfully. Do NOT skip medication. Do NOT stop taking medications without the direction of a physician. Carry a list of your medications with you at all times, and take this medication list with you to your first follow up visit. Report any side effects. Avoid herbal remedies unless discussed with your physician. As part of your treatment plan, your physician may have prescribed a limited course of a controlled substance. This medication may be given to help people with moderate or severe pain or for other medical conditions, but there are risks involved with treatment. Common side effects may include nausea, constipation, drowsiness, sweating, itching, dry mouth, and rash. More serious side effects may include cognitive and motor impairment, like problems with thinking, concentrating, alertness, and movement (e.g. slowed reflexes), and driving and operating heavy machinery can be dangerous. It is important for you to talk to your physician if you have these side effects or questions. These controlled substances can produce physical dependence and be habit-forming if taken for an extended period of time, which means that the body has gotten used to them and may experience withdrawal symptoms if they are abruptly stopped. Withdrawal symptoms can include runny nose, sweating, goose bumps, diarrhea, abdominal cramping, rapid heartbeat, difficulty sleeping, and nervousness. Please dispose of unused and medications per your retail pharmacy guidance. Allergies No Known Allergies Immunizations This Visit No Immunizations Found Education Materials Moderate Conscious Sedation, Adult, Care After These instructions provide you with information about caring for yourself after your procedure. Your health care provider may also give you more specific instructions. Your treatment has been planned according to current medical practices, but problems sometimes occur. Call your health care provider if you have any problems or questions after your procedure. What can I expect after the procedure? After your procedure, it is common: ??? To feel sleepy for several hours. ??? To feel clumsy and have poor balance for several hours. ??? To have poor judgment for several hours. ??? To vomit if you eat too soon. Follow these instructions at home: For at least 24 hours after the procedure: ??? Do not: ? Participate in activities where you could fall or become injured. ? Drive. ? Use heavy machinery. ? Drink alcohol. ? Take sleeping pills or medicines that cause drowsiness. ? Make important decisions or sign legal documents. ? Take care of children on your own. ??? Rest. Eating and drinking ??? Follow the diet recommended by your health care provider. ??? If you vomit: ? Drink water, juice, or soup when you can drink without vomiting. ? Make sure you have little or no nausea before eating solid foods. General instructions ??? Have a responsible adult stay with you until you are awake and alert. ??? Take [id number] and prescription medicines only as told by your health care provider. ??? If you smoke, do not smoke without supervision. ??? Keep all follow-up visits as told by your health care provider. This is important. Contact a health care provider if: ??? You keep feeling nauseous or you keep vomiting. ??? You feel light-headed. ??? You develop a rash. ??? You have a fever. Get help right away if: ??? You have trouble breathing. This information is not intended to replace advice given to you by your health care provider. Make sure you discuss any questions you have with your health care provider. Document Released: 01/29/2014 Document Revised: 09/12/2016 Document Reviewed: 07/30/2016 [employer] Patient Education ?? 2019 [place]. Heart-Healthy Eating Plan Heart-healthy meal planning includes: ??? Limiting unhealthy fats. ??? Increasing healthy fats. ??? Making other small dietary changes. You may need to talk with your doctor or a diet specialist (dietitian) to create an eating plan that is right for you. What types of fat should I choose? Choose healthy fats. These include olive oil and canola oil, flaxseeds, walnuts, almonds, and seeds. ??? Eat more omega-3 fats. These include salmon, mackerel, sardines, tuna, flaxseed oil, and ground flaxseeds. Try to eat fish at least twice each week. ??? Limit saturated fats. ? Saturated fats are often found in animal products, such as meats, butter, and cream. ? Plant sources of saturated fats include palm oil, palm kernel oil, and coconut oil. ??? Avoid foods with partially hydrogenated oils in them. These include stick margarine, some tub margarines, cookies, crackers, and other baked goods. These contain trans fats. What general guidelines do I need to follow? Check food labels carefully. Identify foods with trans fats or high amounts of saturated fat. ??? Fill one half of your plate with vegetables and green salads. Eat 4???5 servings of vegetables per day. A serving of vegetables is: ? 1 cup of raw leafy vegetables. ? ?? cup of raw or cooked cut-up vegetables. ? ?? cup of vegetable juice. ??? Fill one fourth of your plate with whole grains. Look for the word whole as the first word in the ingredient list. ??? Fill one fourth of your plate with lean protein foods. ??? Eat 4???5 servings of fruit per day. A serving of fruit is: ? One medium whole fruit. ? ?? cup of dried fruit. ? ?? cup of fresh, frozen, or canned fruit. ? ?? cup of 100% fruit juice. ??? Eat more foods that contain soluble fiber. These include apples, broccoli, carrots, beans, peas, and barley. Try to get 20???30 g of fiber per day. ??? Eat more home-cooked food. Eat less restaurant, buffet, and fast food. ??? Limit or avoid alcohol. ??? Limit foods high in starch and sugar. ??? Avoid fried foods. ??? Avoid frying your food. Try baking, boiling, grilling, or broiling it instead. You can also reduce fat by: ? Removing the skin from poultry. ? Removing all visible fats from meats. ? Skimming the fat off of stews, soups, and gravies before serving them. ? Steaming vegetables in water or broth. ??? Lose weight if you are overweight. ??? Eat 4???5 servings of nuts, legumes, and seeds per week: ? One serving of dried beans or legumes equals ?? cup after being cooked. ? One serving of nuts equals 1?? ounces. ? One serving of seeds equals ?? ounce or one tablespoon. ??? You may need to keep track of how much salt or sodium you eat. This is especially true if you have high blood pressure. Talk with your doctor or dietitian to get more information. What foods can I eat? Grains Breads, including Korean, white, musa, wheat, raisin, rye, oatmeal, and Malaysian. Tortillas that are neither fried nor made with lard or trans fat. Low-fat rolls, including hotdog and hamburger buns and Lithuanian muffins. Biscuits. Muffins. Waffles. Pancakes. Light popcorn. Whole-grain cereals. Flatbread. Emili toast. Pretzels. Breadsticks. Rusks. Low-fat snacks. Low-fat crackers, including oyster, saltine, matzo, cristian, animal, and rye. Rice and pasta, including brown rice and pastas that are made with whole wheat. Vegetables All vegetables. Fruits All fruits, but limit coconut. Meats and Other Protein Sources Lean, well-trimmed beef, veal, pork, and huitron. Chicken and turkey without skin. All fish and shellfish. Wild duck, rabbit, pheasant, and venison. Egg whites or low-cholesterol egg substitutes. Dried beans, peas, lentils, and tofu. Seeds and most nuts. Dairy Low-fat or nonfat cheeses, including ricotta, string, and mozzarella. Skim or 1% milk that is liquid, powdered, or evaporated. Buttermilk that is made with low-fat milk. Nonfat or low-fat yogurt. Beverages Mineral water. Diet carbonated beverages. Sweets and Desserts Sherbets and fruit ices. Honey, jam, marmalade, jelly, and syrups. Meringues and gelatins. Pure sugar candy, such as hard candy, jelly beans, gumdrops, mints, marshmallows, and small amounts of dark chocolate. Fred food cake. Eat all sweets and desserts in moderation. Fats and Oils Nonhydrogenated (trans-free) margarines. Vegetable oils, including soybean, sesame, sunflower, olive, peanut, safflower, corn, canola, and cottonseed. Salad dressings or mayonnaise made with a vegetable oil. Limit added fats and oils that you use for cooking, baking, salads, and as spreads. Other [place] powder. Coffee and tea. All seasonings and condiments. The items listed above may not be a complete list of recommended foods or beverages. Contact your dietitian for more options. What foods are not recommended? Grains Breads that are made with saturated or trans fats, oils, or whole milk. Croissants. Butter rolls. Cheese breads. Sweet rolls. Donuts. Buttered popcorn. Chirinos mein noodles. High-fat crackers, such as cheese or butter crackers. Meats and Other Protein Sources Fatty meats, such as hotdogs, short ribs, sausage, spareribs, zayas, rib eye roast or steak, and mutton. High-fat deli meats, such as salami and bologna. Caviar. Domestic duck and goose. Organ meats, such as kidney, liver, sweetbreads, and heart. Dairy Cream, sour cream, cream cheese, and creamed cottage cheese. Whole-milk cheeses, including blue (laney), Hendricks Jermaine, Brie, Prabhakar, Solomon Islander, Havarti, Portuguese, cheddar, Camembert, and [place]. Whole or 2% milk that is liquid, evaporated, or condensed. Whole buttermilk. Cream sauce or high-fat cheese sauce. Yogurt that is made from whole milk. Beverages Regular sodas and juice drinks with added sugar. Sweets and Desserts Frosting. Pudding. Cookies. Cakes other than fred food cake. Candy that has milk chocolate or white chocolate, hydrogenated fat, butter, coconut, or unknown ingredients. Buttered syrups. Full-fat ice cream or ice cream drinks. Fats and Oils Gravy that has suet, meat fat, or shortening. [place] butter, hydrogenated oils, palm oil, coconut oil, palm kernel oil. These can often be found in baked products, candy, fried foods, nondairy creamers, and whipped toppings. Solid fats and shortenings, including zayas fat, salt pork, lard, and butter. Nondairy cream substitutes, such as coffee creamers and sour cream substitutes. Salad dressings that are made of unknown oils, cheese, or sour cream. The items listed above may not be a complete list of foods and beverages to avoid. Contact your dietitian for more information. This information is not intended to replace advice given to you by your health care provider. Make sure you discuss any questions you have with your health care provider. Document Released: 10/09/2012 Document Revised: 09/15/2016 Document Reviewed: 10/02/2014 [employer] Patient Education ?? 2019 [place]. Groin Site Care Refer to this sheet in the next few weeks. These instructions provide you with information on caring for yourself after your procedure. Your caregiver may also give you more specific instructions. Your treatment has been planned according to current medical practices, but problems sometimes occur. Call your caregiver if you have any problems or questions after your procedure. HOME CARE INSTRUCTIONS ??? You may shower 24 hours after the procedure. Remove the bandage (dressing ) and gently wash the site with plain soap and water. Gently pat the site dry. ??? Do not apply powder or lotion to the site. ??? Do not sit in a bathtub, swimming pool, or whirlpool for 5 to 7 days. ??? No bending, squatting, or lifting anything over 10 pounds (4.5 kg) as directed by your caregiver. ??? Inspect the site at least twice daily. ??? Do not drive home if you are discharged the same day of the procedure. Have someone else drive you. ??? You may drive 24 hours after the procedure unless otherwise instructed by your caregiver. What to expect: ??? Any bruising will usually fade within 1 to 2 weeks. ??? Blood that collects in the tissue (hematoma ) may be painful to the touch. It should usually decrease in size and tenderness within 1 to 2 weeks. SEEK IMMEDIATE MEDICAL CARE IF: ??? You have unusual pain at the groin site or down the affected leg. ??? You have redness, warmth, swelling, or pain at the groin site. ??? You have drainage (other than a small amount of blood on the dressing). ??? You have chills. ??? You have a fever or persistent symptoms for more than 72 hours. ??? You have a fever and your symptoms suddenly get worse. ??? Your leg becomes pale, cool, tingly, or numb. ??? You have heavy bleeding from the site. Hold pressure on the site. Document Released: 05/13/2011 Document Revised: 07/02/2012 Document Reviewed: 05/13/2011 ExitCare?? Patient Information ??2014 [employer]. Angiogram, Care After This sheet gives you information about how to care for yourself after your procedure. Your health care provider may also give you more specific instructions. If you have problems or questions, contact your health care provider. What can I expect after the procedure? After the procedure, it is common to have bruising and tenderness at the catheter insertion area. Follow these instructions at home: Insertion site care ??? Follow instructions from your health care provider about how to take care of your insertion site. Make sure you: ? Wash your hands with soap and water before you change your bandage (dressing). If soap and water are not available, use hand fabric inspector. ? Change your dressing as told by your health care provider. ? Leave stitches (sutures), skin glue, or adhesive strips in place. These skin closures may need to stay in place for 2 weeks or longer. If adhesive strip edges start to loosen and curl up, you may trim the loose edges. Do not remove adhesive strips completely unless your health care provider tells you to do that. ??? Do not take baths, swim, or use a hot tub until your health care provider approves. ??? You may shower 24???48 hours after the procedure or as told by your health care provider. ? Gently wash the site with plain soap and water. ? Pat the area dry with a clean towel. ? Do not rub the site. This may cause bleeding. ??? Do not apply powder or lotion to the site. Keep the site clean and dry. ??? Check your insertion site every day for signs of infection. Check for: ? Redness, swelling, or pain. ? Fluid or blood. ? Warmth. ? Pus or a bad smell. Activity ??? Rest as told by your health care provider, usually for 1???2 days. ??? Do not lift anything that is heavier than 10 lbs. (4.5 kg) or as told by your health care provider. ??? Do not drive for 24 hours if you were given a medicine to help you relax (sedative). ??? Do not drive or use heavy machinery while taking prescription pain medicine. General instructions ??? Return to your normal activities as told by your health care provider, usually in about a week. Ask your health care provider what activities are safe for you. ??? If the catheter site starts bleeding, lie flat and put pressure on the site. If the bleeding does not stop, get help right away. This is a medical emergency. ??? Drink enough fluid to keep your urine clear or pale yellow. This helps flush the contrast dye from your body. ??? Take [id number]-mykjxbn and prescription medicines only as told by your health care provider. ??? Keep all follow-up visits as told by your health care provider. This is important. Contact a health care provider if: ??? You have a fever or chills. ??? You have redness, swelling, or pain around your insertion site. ??? You have fluid or blood coming from your insertion site. ??? The insertion site feels warm to the touch. ??? You have pus or a bad smell coming from your insertion site. ??? You have bruising around the insertion site. ??? You notice blood collecting in the tissue around the catheter site (hematoma). The hematoma may be painful to the touch. Get help right away if: ??? You have severe pain at the catheter insertion area. ??? The catheter insertion area swells very fast. ??? The catheter insertion area is bleeding, and the bleeding does not stop when you hold steady pressure on the area. ??? The area near or just beyond the catheter insertion site becomes pale, cool, tingly, or numb. These symptoms may represent a serious problem that is an emergency. Do not wait to see if the symptoms will go away. Get medical help right away. Call your local emergency services (581 in the [place] Do not drive yourself to the hospital. Summary ??? After the procedure, it is common to have bruising and tenderness at the catheter insertion area. ??? After the procedure, it is important to rest and drink plenty of fluids. ??? Do not take baths, swim, or use a hot tub until your health care provider says it is okay to do so. You may shower 24???48 hours after the procedure or as told by your health care provider. ??? If the catheter site starts bleeding, lie flat and put pressure on the site. If the bleeding does not stop, get help right away. This is a medical emergency. This information is not intended to replace advice given to you by your health care provider. Make sure you discuss any questions you have with your health care provider. Document Released: 10/27/2005 Document Revised: 03/15/2017 Document Reviewed: 03/15/2017 [employer] Patient Education ?? 2019 [place]. Emergency Awareness and Preventative Care STROKE is an EMERGENCY Every Minute Counts Act FAST and Check for these signs: FACE Does the face look uneven? ARM Does one arm drift down? SPEECH Does their speech sound strange? TIME Call at any sign of stroke Stroke Risk Factors Atrial Fibrillation (irregular heartbeat) Diabetes Family history of stroke Heart Disease Heavy alcohol use High Blood Pressure High Cholesterol Physical inactivity and obesity Smoking Cigarette Smoking The facts are clear, cigarette smoking will shorten your life. Smoking can cause many illnesses along the way. As a healthcare provider, we recommend that you stop smoking. Assistance with quitting is available by contacting 3-167-FYZJ-NOW. This is a free resource providing counseling, support, and referral. Or you may contact your personal physician. National Suicide Prevention Lifeline: The National Suicide Prevention Lifeline is a national network of local crisis centers that provides free and confidential emotional support to people in suicidal crisis or emotional distress 24 hours a day, 7 days a week. Don't Wait! Stop a Heart Attack Before it Starts What is a heart attack? A heart attack is damage or to a part of the heart from severely decreased or lack of blood flow to the heart. Over time, arteries can become narrow from the buildup of fat and cholesterol, which is called plaque. The plaque can rupture causing a blood clot to form. When the blood clot forms, the artery can become severely narrowed or completely blocked, causing a heart attack. Heart attack is the leading cause of in the [place]. 85% of muscle damage occurs within the first 2 hours. Delay in the recognition of heart attack symptoms increases the chances of . Know the early symptoms of a heart attack: Nausea Feeling of fullness in chest Jaw Pain Pain that travels down one or both arms Fatigue/being tired Anxiety Back Pain Chest pressure, squeezing, or discomfort Shortness of breath Sweating, or a cold sweat Feeling of impending doom There are unusual signs of a heart attack, too! Women, the elderly, and diabetics may present with atypical symptoms: Fainting/dizziness Weakness Confusion Risk Factors for a Heart Attack Some heart disease risk factors, such as age and family history, cannot be changed. Others, like smoking and lack of exercise, can be changed. Smoking High Cholesterol High Blood Pressure Family History Obesity Age Gender (Males are at higher risk) Lack of Exercise Diabetes Diet Stress Excessive Alcohol Intake If you or someone you know is experiencing the signs and symptoms of a heart attack, DON???T DELAY. Call immediately and seek help. If someone collapses, perform CPR! Do not attempt to drive if you are having symptoms of heart attack. Hands-Only CPR Why Hands-Only CPR? Hands-Only CPR has been shown to be as effective as conventional CPR for cardiac arrests that occur outside of a hospital. Survival depends on immediately receiving CPR from someone nearby. How do you perform Hands-Only CPR? There are two easy steps: Call if you see a teen or adult collapse Push hard and fast in the center of the chest at a beat of 100 beats per minute. Save a life! 4 WAYS TO GET AHEAD OF SEPSIS SEPSIS is a MEDICAL EMERGENCY. Time matters! Infections put you and your family at risk for a life-threatening condition called sepsis. Sepsis is the body's extreme response to an infection. It is life-threatening, and without timely treatment, sepsis can rapidly lead to tissue damage, organ failure, and . Sepsis happens when an infection you already have-in your skin, lungs, urinary tract or somewhere else-triggers a chain reaction throughout your body. 1 PREVENT INFECTIONS Take good care of chronic conditions. Talk to your doctor about getting the recommended vaccines. 2 PRACTICE GOOD HYGIENE Wash your hands frequently. Keep cuts or open sores clean and covered until they are healed. 3 KNOW THE SYMPTOMS Confusion or disorientation Shortness of breath High heart rate Fever, shivering, or feeling very cold Extreme pain or discomfort Clammy or sweaty skin 4 ACT FAST Get medical care IMMEDIATELY if you suspect sepsis or if you have an infection that is not getting better or is getting worse. To learn more about sepsis and how to prevent infections, visit www.cdc.gov/sepsis. Test Results Laboratory or Other Results This Visit (last charted value for your 03/12/2019 visit) Hematology 03/12/2019 6:55 AM Hemoglobin POC: 16.0 Gram/dL -- Normal range between ( 12.0 and 17.0 ) Hematocrit POC: 47.0 % -- Normal range between ( 38.0 and 51.0 ) 03/12/2019 6:52 AM Platelet Count: 190 K/uL -- Normal range between ( 163 and 369 ) General Chemistry 03/12/2019 6:58 AM Creatinine Level: 1.50 mg/dL -- Normal range between ( 0.70 and 1.30 ) eGFR : 54 mL/min/1.73m2 eGFR NonAfrican: 45 mL/min/1.73m2 03/12/2019 6:55 AM Sodium POC: 139 mmol/L -- Normal range between ( 138 and 146 ) Ca Ioniz POC: 1.34 mmol/L -- Normal range between ( 1.12 and 1.32 ) Potassium POC: 4.3 mmol/L -- Normal range between ( 3.5 and 4.9 ) Creatinine POC: 1.5 mg/dL -- Normal range between ( 0.6 and 1.3 ) BUN POC: 24 mg/dL -- Normal range between ( 8 and 26 ) CO2 POC: 27.0 mmol/L -- Normal range between ( 24.0 and 29.0 ) Chloride POC: 102 mmol/L -- Normal range between ( 98 and 109 ) Glucose POC: 148 mg/dL -- Normal range between ( 70 and 105 ) Anion Gap POC: 15.0 mmol/L -- Normal range between ( 10.0 and 20.0 ) Patient Name:JULIO PROSPER JEANETTE I have received and understand this information and was given the opportunity to ask questions. Patient/Law Examiner Name: Patient/Law Examiner Signature: Relationship to Patient: Clinician/Hospital Law Examiner Signature: Date: documented in this encounter Plan of Treatment Not on file documented as of this encounter Visit Diagnoses Not on filedocumented in this encounter
--- OUTSIDE RECORDS SUMMARY | 2024-12-19 10:10 | XMS_ITS | Encounter Summary ---
Author Organization [employer] ([place], [place], [place], [place]) Address [address] [place] [address] Care Team Providers Care Toll Relief Operator Name Role Phone Unavailable Primary Care Provider Unavailabl e Encounter Details Date Type Department Care Team (Late st Contact Info) Description 03/12/2019 Transcribed Document [facility] [place] Family Medicine [address] [place] [address] ProviderDakotah MD [address] [place] [address] Social History Tobacco Use Types Packs/Day Years Used Date Smoking Tobacco: Never Assessed Sex and Gender Information Value Date Recorded Sex Assigned at Not on file Legal Sex Male 6:48 PM CDT Gender Identity Not on file Sexual Orientation Not on file documented as of this encounter Miscellaneous Notes * Cerner Conversion Note - Dakotah Higgins MD - 03/12/2019 1:31 PM FURNITURE ASSEMBLER AND INSTALLER DATE OF CONSULTATION: 03/12/2019 REASON FOR CONSULTATION: Evaluation of coronary artery disease. HISTORY OF PRESENT ILLNESS: Mr. Roldan is an 84-year-old man, who underwent coronary artery bypass grafting x6 by fl in 1990. Since then, he has undergone coronary artery stenting in 2000 and September of 2018. He has continued more recently to have class III angina pectoris. An echocardiogram shows stable moderate aortic stenosis. Cardiac catheterization reveals three vessel coronary artery disease with a patent sequential left internal mammary graft to the first diagonal and left anterior descending, and occluded saphenous vein graft to the posterior descending branch of the right coronary, and occluded saphenous vein graft to a second circumflex marginal, and a patent saphenous vein graft to an apparent ramus and first circumflex marginal, although there is distal disease in these coronaries. PAST HISTORY: 1. Diabetes. 2. Hypertension. 3. Hyperlipidemia. 4. Chronic lymphoid leukemia. 5. Chronic kidney disease. SOCIAL HISTORY: He is a former smoker. No alcohol abuse. FAMILY HISTORY: Positive for diabetes. REVIEW OF SYSTEMS: CARDIAC: See history of present illness. No congestive heart failure, syncope, edema, or palpitations. RESPIRATORY: No cough, wheeze, or hemoptysis. GI: No abdominal pain or GI bleeding. : No hematuria or dysuria. NEUROLOGIC: No seizures or stroke. Remainder of a complete review of systems negative. PHYSICAL EXAMINATION: GENERAL: The patient is a healthy-appearing male, in no distress. VITAL SIGNS: Blood pressure 145/70, pulse was 68 and regular, respiratory rate 16 per minute. SKIN: No rashes. HEENT: Within normal limits. Pupils are equal and reactive. NECK: No JVD, bruits, or lymphadenopathy. LUNGS: Clear with normal respiratory effort. HEART: Has a normal S1 and S2 with no murmurs. ABDOMEN: Nontender without masses. Bowel sounds are present. EXTREMITIES: Show no cyanosis or edema. NEUROLOGIC: No focal deficits. His cardiac catheterization films reviewed. IMPRESSION: Mr. Roldan has three-vessel coronary artery disease with a patent sequential left internal mammary artery graft and a patent circumflex graft. Unfortunately, his target vessels for bypass grafting are fairly small with diffuse disease. I think his risk of a redo operation is greater than potential benefit. I also reviewed his films with one of our partners who agreed. This was all discussed with Mr. Roldan and his daughters and they understand. Therefore, the recommendation at this time would be maximal medical therapy. /[id number] Dax Alexis IV, MD RDF/AQ / RDF / MODL /[id number] CC: Man Correa MD Electronically signed by Chelsea, Juan Conversion Computer Aided Design Designer Cerner at 08/07/2022 11:17 PM CDT documented in this encounter Plan of Treatment Not on file documented as of this encounter Visit Diagnoses Not on filedocumented in this encounter
--- OUTSIDE RECORDS SUMMARY | 2024-12-19 10:10 | XMS_ITS | Encounter Summary ---
Author Organization [employer] ([place], [place], [place], [place]) Address [address] [place] [address] Care Team Providers Care Basketball Player Name Role Phone Unavailable Primary Care Provider Unavailabl e Encounter Details Date Type Department Care Team (Late st Contact Info) Description 03/12/2019 Transcribed Document [facility] [place] [address] [place] [address] ProviderDakotah MD [address] [place] [address] Social History Tobacco Use Types Packs/Day Years Used Date Smoking Tobacco: Never Assessed Sex and Gender Information Value Date Recorded Sex Assigned at Not on file Legal Sex Male 6:48 PM CDT Gender Identity Not on file Sexual Orientation Not on file documented as of this encounter Miscellaneous Notes * Cerner Conversion Note - Dakotah ProviderMD - 03/12/2019 9:44 AM CLOTH WASHER BACK TENDER DATE OF SERVICE: 03/12/2019 PROCEDURES PERFORMED: Left heart catheterization, left ventriculography, selective coronary arteriography, selective bypass angiography. INDICATION: Class IV angina pectoris, on optimal medical therapy. APPROACH: RFA. SHEATHS AND CATHETERS USED: 5-Omani sheath, 5-Omani Yoselin Multipack. HEMOSTASIS: Manual compression hemostasis with Mynx device. Adverse events, none. FINDINGS: LV pressure 179/9. Aortic pressure 143/71. Aortic valve gradient 36 mmHg. ANGIOGRAPHY: Left ventriculogram shows ejection fraction estimated between 45% to 50%. No mitral insufficiency is noted. CORONARY ARTERIOGRAPHY: Left coronary artery: Left main is normal. LAD is occluded ostially. Circumflex has occlusion of one of its marginals and high-grade stenosis of another marginal. Right coronary artery: This was not reshot to save contrast, previously documented to be occluded. BYPASS CIRCULATION: Left internal mammary graft to the LAD remains patent with good flow. Saphenous vein graft to the right coronary now 100% occluded. Saphenous vein graft sequential to the marginals. Severe deterioration of the graft with high-grade stenosis at the origin of both grafts insertion point. IMPRESSION: 1. Severe three-vessel coronary artery disease. 2. Deterioration of venous grafts. 3. Moderate aortic stenosis. RECOMMENDATION: I do not feel there is much more I can offer this patient with coronary intervention. I suggested evaluation for redo bypass surgery and probable aortic valve replacement since he is in the moderate category to see if his symptoms can be improved. Surgery consultation will be obtained. /[id number] Man Correa MD JCS/AQ / JCS / MODL /[id number] Electronically signed by Chelsea, [facility] Conversion Hand Dry Cleaner Cerner at 08/07/2022 11:11 PM CDT documented in this encounter Plan of Treatment Not on file documented as of this encounter Visit Diagnoses Not on filedocumented in this encounter
--- OUTSIDE RECORDS SUMMARY | 2024-12-19 10:10 | XMS_ITS | Encounter Summary ---
Author Organization [employer] ([place], [place], [place], [place]) Address [address] [place] [address] Care Team Providers Care Tank Builder Supervisor Name Role Phone Unavailable Primary Care Provider Unavailabl e Encounter Details Date Type Department Care Team (Late st Contact Info) Description 03/12/2019 Transcribed Document [facility] [place] Family Medicine [address] [place] [address] ProviderDakotah MD [address], [place] [id number] Social History Tobacco Use Types Packs/Day Years Used Date Smoking Tobacco: Never Assessed Sex and Gender Information Value Date Recorded Sex Assigned at Not on file Legal Sex Male 6:48 PM CDT Gender Identity Not on file Sexual Orientation Not on file documented as of this encounter Miscellaneous Notes * Cerner Conversion Note - Historical ProviderMD - 03/12/2019 11:31 AM AUTOMOBILE MECHANIC MOTOR Consult Phone Call Documentation Entered On: 03/12/2019 11:51 EST Performed On: 03/12/2019 10:15 EST by RANJEET ABREU, RN Phone Call for Consults Consult Phone Call/Page Attempt : First call Consult Reason : Dr. Correa spoke with Dr. Alexis regarding consult, Md stated Dr. Alexis would be by soon to see pt RANJEET ABREU, RN - 03/12/2019 11:48 EST Electronically signed by Chelsea [facility] Conversion Machine Repairman Cerner at 08/07/2022 11:04 PM CDT documented in this encounter Plan of Treatment Not on file documented as of this encounter Visit Diagnoses Not on filedocumented in this encounter
--- OUTSIDE RECORDS SUMMARY | 2024-12-19 10:10 | XMS_ITS | Referral Summary ---
Author Organization [employer] ([place], [place], [place], [place]) Address [address] [place] [address] Care Team Providers Care Gunnery/Ordnance Officer Name Role Phone Unavailable Primary Care Provider Unavailabl e Social History Tobacco Use Types Packs/Day Years Used Date Smoking Tobacco: Never Assessed Sex and Gender Information Value Date Recorded Sex Assigned at Not on file Legal Sex Male 6:48 PM CDT Gender Identity Not on file Sexual Orientation Not on file Plan of Treatment Not on file
--- OUTSIDE RECORDS SUMMARY | 2024-12-19 10:10 | XMS_ITS | Encounter Summary ---
Author Organization [facility] ([place], [place], [place], [place]) Address [address] [place] [address] Care Team Providers Care Longitudinal Float Operator Name Role Phone Unavailable Primary Care Provider Unavailabl e Encounter Details Date Type Department Care Team (Late st Contact Info) Description 10/01/2018 Transcribed Document [facility] [place] Family Medicine [address] [place] [address] ProviderDakotah MD [address] [place] [address] Social History Tobacco Use Types Packs/Day Years Used Date Smoking Tobacco: Never Assessed Sex and Gender Information Value Date Recorded Sex Assigned at Not on file Legal Sex Male 6:48 PM CDT Gender Identity Not on file Sexual Orientation Not on file documented as of this encounter Miscellaneous Notes * Cerner Conversion Note - Historical ProviderMD - 10/01/2018 3:19 PM CDT UM Authorization Entered On: 10/01/2018 15:21 EDT Performed On: 10/01/2018 15:19 EDT by TARA CORTEZ RN-Utilization Review Primary Insurance Authorization Authorization and Policy Numbers : Insurance 1 Health Plan: [employer] PPO Policy Number: [id number] Authorization Number: Insurance Primary Name : [employer] PPO Policy Number: [id number] Authorization Status-Primary : Opo status approv Authorization Number-Primary : [id number] obs Authorized Service Begin Date-Primary : 09/26/2018 EDT Authorization Comments-Primary : approved per availity for obs Historical Authorization Comments-Primary : No Authorization Comments Found TARA CORTEZ RN-Utilization Review - 10/01/2018 15:19 EDT documented in this encounter Plan of Treatment Not on file documented as of this encounter Visit Diagnoses Not on filedocumented in this encounter
--- OUTSIDE RECORDS SUMMARY | 2024-12-19 10:10 | XMS_ITS | Encounter Summary ---
Author Organization [facility] Address [address] [place] [address] Care Team Providers Care Shovel Log Loader Operator Name Role Phone Airam Horne RN Unavailable [phone] Redd Naidu MD Unavailable Unavailable Asher Whitmore MD Unavailable Unavailable Kary Limon NP Unavailable UnavailOchoa Maharaj MD Unavailable Unavailable Poonam Gannon MD Unavailable [phone] Chrissy So RN Unavailable Unavailab Magdalene Pinzon NP Unavailable [phone] Terell Jain RN Unavailable Isaac Bryan MD Unavailable [phone] Artem Elizabeth MD Unavailable [phone] Man Farrell MD Primary Care Provider [phone] Camilo Parada MD Unavailable [phone] Addis Walton Unavailable [phone] Reason for Visit * Reason Onset Date Comments Hypertension 07/19/2022 Encounter Details Date Type Department Care Team (Late st Contact Info) Description 07/19/[address] [facility] Physicians - Heart & Vascular, [place] [address] [place] [address] Artem Elizabeth MD [address] [facility] [address] [place] [address] Hypertension Social History Tobacco Use Types Packs/Day Years Used Date Smoking Tobacco: Former Cigarettes 1 580 - 1307 Smokeless Tobacco: Never Alcohol Use Standard Drinks/Week Comments Not Currently 1 (1 standard drink = 0.6 oz pur e alcohol) 1 drink a day Sex and Gender Information Value Date Recorded Sex Assigned at Male 05/06/2020 4:01 PM EST Legal Sex Male 10:29 AM EDT Gender Identity Male 05/06/2020 4:01 PM EST Sexual Orientation Straight 05/19/2023 10 :30 AM EST COVID-19 Exposure Response Date Recorded In the last 10 days, have yo u been in contact with someone who was confirmed or suspected to have Coronavirus/COVID-19? No / Unsure 07/21/2022 12:19 PM EDT documented as of this encounter Functional Status [...] of Assessment Author No 07/25/2021 2:09 PM SHAVONNET Selam Tapia RN * Because of a [...] Entry Date Author No 07/25/2021 2:09 PM Selam Jarvis RN documented in this encounter Miscellaneous Notes * Telephone Encounter - Susana Espinoza RN - 07/20/2022 9:35 AM EDT This RN spoke with patient regarding the recommendations below. He v/u and will continue to monitorhis BP's. He is to keep a BP diary and call with results * Telephone Encounter - Aristeo Wallace MD - 07/19/2022 5:11 PM EDT He is on low dose metop, keep for now and check back in a few weeks. thanks * Telephone Encounter - Susana Espinoza RN - 07/19/2022 12:46 PM EDT Patient states he has been getting physical therapy. He states in the middle of one session his BP was 98/58. He states that he has been having issues with his balance and has had syncopal episodes. He is having some dizziness with getting up (orthostatin hypotension) 07/11 11am 114/61 07/12 9am 141/68 07/15 9am 133/65 HR 91 07/16 9 am 139/54 07/17 9am 122/66 07/19 9am 116/67 He states that the symptoms come and go. He states his symptoms were not of course related to his BG as he checked his BG at those times and measurements were normal Current medication: Lopressor 5mg BID LOLITA 02/10/22 PLAN: ?? Postural orthostatic symptoms Stop isosorbide Consider reducing metoprolol if no improvement Observation for carotid stenosis, potential management and evaluation options discussed including CTA versus surveillance. 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 Return office visit in six months. ? Reduce dose of the metoprolol? * Telephone Encounter - Asha Higginbotham - 07/19/2022 11:45 AM EDT Patient was returning a call to Susana Espinoza. Please call patient back at [phone] Thank you * Telephone Encounter - Susana Espinoza RN - 07/19/2022 10:27 AM EDT This RN LMOM for patient to return call * Telephone Encounter - Cora Nogueira RMA - 07/19/2022 10:01 AM EDT PT calling on BP running 115/62 or 117/62. Pt feels his BP low for 3 months. Pt said going up and down. Pt feels his BP has been staying steady. Pt scheduled with Dr Elizabeth 08/15 for a follow. I did offer the PA but wanted to jocy to see Dr Elizabeth. documented in this encounter Plan of Treatment Upcoming Encounters Date Type Department Care Team (Late st Contact Info) Description 01/13/2025 10:15 AM EDT Appointment [facility] Physicians - Heart & Vascular, [place] [address] [facility] [place] [id number] Artem Elizabeth MD [address] [facility] [place], [place] [address] 04/04/2025 10:00 AM EST Appointment [facility] - Diabetes & Endocrine Center, [address] [place] [address] Poonam Gannon MD [address] [facility] [address] [place], [place] [address] documented as of this encounter Goals Goal Patient Goal Type Associated Problems Recent Progress Patient-Stated? Author Increase physical activity Lifestyle No Clari Baird, BS MEd documented as of this encounter Visit Diagnoses Not on filedocumented in this encounter Care Teams Shovel Log Loader Operator Relationship Specialty Start Date End Date Man Farrell MD [address] [place] [address] [place] [address] PCP - General Family Medicine 05/31/21 Airam Horne RN Registered Nurse Cardiology 03/20/20 Redd Naidu MD Consulting Physician Interventional Cardiology 03/20/20 Asher Whitmore MD Interventional Cardiology 03/23/20 Kary Limon NP Oncology Nurse Navigator Nurse Practitioner 03/27/20 04/05/23 Ochoa Lockwood MD Interventional Cardiology 06/16/20 Poonam Gannon MD [address] [facility] [address] [place] [address] Endocrinology/Diabetes/ Metabolism 06/23/20 Chrissy So RN Registered Nurse 06/25/20 Magdalene Ibarra NP [address] [employer] [place], [place] [id number] Nurse Practitioner Nurse Practitioner, Acute Care 07/27/20 Terell Jain, CURT [address] [place] [address] Registered Nurse 09/23/20 Isaac Bryan MD [address] [place] [address] Cardiology 12/29/20 Artem Elizabeth MD [address] [place] [address] Interventional Cardiology 05/31/21 Camilo Parada MD [address] [facility] [address] [place] [address] Cardiology 07/25/21 Addis Walton PA [address] [place] [address] [address] [place] [address] Cardiology 11/23/21 documented as of this encounter
--- OUTSIDE RECORDS SUMMARY | 2024-12-19 10:10 | XMS_ITS | Encounter Summary ---
Author Organization [employer] ([place], [place], [place], [place]) Address [address] [place] [address] Care Team Providers Care Lead Sewage Plant Operator Name Role Phone Unavailable Primary Care Provider Unavailabl e Encounter Details Date Type Department Care Team (Late st Contact Info) Description 03/12/2019 Transcribed Document [facility] [place] Family Medicine [address] [place] [address] ProviderDakotah MD [address] [place] [address] Social History Tobacco Use Types Packs/Day Years Used Date Smoking Tobacco: Never Assessed Sex and Gender Information Value Date Recorded Sex Assigned at Not on file Legal Sex Male 6:48 PM CDT Gender Identity Not on file Sexual Orientation Not on file documented as of this encounter Miscellaneous Notes * Cerner Conversion Note - Historical ProviderMD - 03/12/2019 1:45 PM SPLITTER TENDER Nursing Discharge Summary Entered On: 03/12/2019 13:46 EST Performed On: 03/12/2019 13:45 EST by RANJEET ABREU, visual artist Documentation Discharge Date/Time : 03/12/2019 13:55 EST RANJEET ABREU, RN - 03/12/2019 14:06 EST Patient Disposition, General : Discharge Discharge To : Home with ambulatory/outpatient follow-up Mode Of Departure, General Discharge : Private vehicle Accompanied By, Discharge : Daughter IV Discontinued : Yes Personal Belongings With Patient : Yes Prescriptions Given to Patient : No Discharge Instructions Reviewed With, Opportunity For Questions Given : Patient, Daughter Patient Education Completed : Yes Teaching Method : Demonstration, Explanation Teaching Evaluation : Returns demonstration, Verbalizes understanding RANJEET ABREU, RN - 03/12/2019 13:45 EST Electronically signed by Chelsea [facility] Conversion Water Use Inspector Cerner at 08/07/2022 11:14 PM CDT documented in this encounter Plan of Treatment Not on file documented as of this encounter Visit Diagnoses Not on filedocumented in this encounter
--- OUTSIDE RECORDS SUMMARY | 2024-12-19 10:10 | XMS_ITS | Encounter Summary ---
Author Organization [employer] ([place], [place], [place], [place]) Address [address] [place] [address] Care Team Providers Care Cloth Shearer Name Role Phone Unavailable Primary Care Provider Unavailabl e Encounter Details Date Type Department Care Team (Late st Contact Info) Description 03/12/2019 Transcribed Document [facility] [place] [address] [place] [address] ProviderDakotah MD [address] [place] [address] Social History Tobacco Use Types Packs/Day Years Used Date Smoking Tobacco: Never Assessed Sex and Gender Information Value Date Recorded Sex Assigned at Not on file Legal Sex Male 6:48 PM CDT Gender Identity Not on file Sexual Orientation Not on file documented as of this encounter Miscellaneous Notes * Cerner Conversion Note - Historical ProviderMD - 03/12/2019 2:07 PM LOCK AND DAM OPERATOR Event Note Entered On: 03/12/2019 14:07 EST Performed On: 03/12/2019 14:07 EST by RANJEET ABREU, RN Event Note Event Date/Time : 03/12/2019 13:55 EST Description of Event : pt discharged home in stable condition, pt verbalized understanding of discharge teaching RANJEET ABREU, RN - 03/12/2019 14:07 EST Electronically signed by [facility] Conversion Dietitian Consultant Cerner at 08/07/2022 11:13 PM CDT documented in this encounter Plan of Treatment Not on file documented as of this encounter Visit Diagnoses Not on filedocumented in this encounter
--- OUTSIDE RECORDS SUMMARY | 2024-12-19 10:11 | XMS_ITS | Clinical Summary ---
Author Organization [facility] Address [address] [place] [address] Care Team Providers Care Tree Surgeon Name Role Phone Aiarm Horne RN Unavailable [phone] Redd Naidu MD Unavailable Unavailable Asher Whitmore MD Unavailable Unavailable Ochoa Lockwood MD Unavailable Unavailable Poonam Gannon MD Unavailable [phone] Chrissy So RN Unavailable Unavailab Magdalene Pinzon NP Unavailable [phone] Terell Jain RN Unavailable Isaac Bryan MD Unavailable [phone] Artem [place] MD Unavailable [phone] Man Farrell MD Primary Care Provider [phone] Camilo Parada MD Unavailable [phone] Addis Walton Unavailable [phone] Allergies Active Allergy Reactions Criticality Noted Date Comments William Inhibitors Other (See Comments) Low 06/13/2001 Other reaction(s): Other COUGHING COUGHING Medications calcium polycarbophiL (FIBERCON) 625 mg Tablet Take 1 Tablet by mouth in the morning. 09/17/19 06 Active Cholecalciferol, Vitamin D3, 25 mcg (1,000 unit) Capsule Take 1 Capsule by mouth in the morning. Active ferrous sulfate (65 MG IRON) 325 mg (65 mg iron) tablet Take 1 Tablet by mouth 3 days a week. Three times a week--M,W,F Active folic acid (FOLVITE) 1 mg tablet Take 1 mg by mouth in the morning. 03/09/20 07 Active niacin (NIASPAN) 750 mg Tablet Sustained Release 24 hr Take 750 mg by mouth in the morning. 08/02/19 13 Active nitroglycerin (NITROSTAT) 0.4 mg SL tablet Take 0.4 mg by mouth every 5 minutes as needed for Chest pain. 04/06/20 15 Active temazepam (RESTORIL) 30 mg capsule Take 30 mg by mouth in the morning. Active valacyclovir HCl (VALTREX PO) Take 500 mg by mouth in the morning. Active ubidecarenone (CO Q-10 PO) Take 1 Tablet by mouth in the morning. Active prednisoLONE acetate (PRED FORTE) 1 % suspension Twice a week Active Vitamin A-Vitamin C-Vit E-Se (Super Antioxidant) Capsule Take 1 Capsule by mouth every morning. Super Antioxidant Active oxyCODONE-acetami nophen (PERCOCET) 5-325 mg per tablet 12/19/19 20 Active polyethylene glycol (GLYCOLAX;MIRALAX ) 17 gram/dose powder Take 17 g by mouth in the morning. Active Ranolazine (Ranexa) 1,000 mg Tablet Sustained Release 12 hr Take 1,000 mg by mouth 2 times daily. 180 Tablet 3 12/16/19 21 Active Insulin Mobile, Disposable, (BD LIDIA) 32 gauge x 5/32 Use with lantus daily 100 Each 3 02/20/20 21 Active Accu-Chek Guide Glucose Meter MiscIndications:T ype 2 diabetes mellitus without complication, with long-term current use of insulin ([facility]) USE WHEN TESTING BLOOD SUGAR DX CODE E11.8 1 Each 07/09/19 22 Active tamsulosin (FLOMAX) 0.4 mg sustained release capsule Pt states he only takes every other day 12/10/19 22 Active Accu-Chek Guide test strips StripIndications: Type 2 diabetes mellitus without complication, with long-term current use of insulin (CMS/[facility]) TEST BLOOD SUGAR THREE TIMES DAILY DIRECTED 300 Strip 1 05/10/19 23 Active atorvastatin (LIPITOR) 80 mg Tablet Take 80 mg by mouth in the morning. 1 by Mouth Before Bed . 90 Tablet 1 07/22/19 23 Active citalopram (CELEXA) 10 mg tablet Take 10 mg by mouth in the morning. 10/08/19 23 Active metoprolol tartrate (LOPRESSOR) 25 mg tablet Take 0.5 Tablets (12.5 mg) by mouth 2 times daily. 15 Tablet 10/28/19 23 Active ezetimibe (ZETIA) 10 mg Tablet TAKE 1 TABLET EVERY DAY 90 Tablet 2 02/01/20 23 Active apixaban (ELIQUIS) 2.5 mg tab Take 1 Tablet (2.5 mg) by mouth 2 times daily. 180 Tablet 3 06/19/19 24 Active blood-glucose sensor (FREESTYLE LORI 3 SENSOR) by Does not apply route. Active Lactobac no.41/Bifidobact no.7 (PROBIOTIC-10 PO) Take by mouth. Active DropSafe Alcohol Prep Pads Pads, MedicatedIndicati ons:Type 2 diabetes mellitus without complication, with long-term current use of insulin ([facility]) USE DIRECTED DAILY FOR USE WITH INSULIN PEN 100 Each 3 03/08/20 24 Active empagliflozin (Jardiance) 25 mg Tablet Take 12.5 mg by mouth in the morning. 04/02/20 24 Active semaglutide (Ozempic) 0.25 mg or 0.5 mg (2 mg/3 mL) Pen Injector 0.25 mg by Subcutaneous route once weekly. Active clopidogreL (PLAVIX) 75 mg tablet Take 1 Tablet (75 mg) by mouth daily. 90 Tablet 3 07/05/19 25 Active torsemide (DEMADEX) 10 mg tablet Take 10 mg by mouth as needed. 08/03/19 25 Active Insulin Glargine 100 unit/mL (3 mL) Solostar INPNIndications:T ype 2 diabetes mellitus without complication, with long-term current use of insulin ([facility]) 28 Units by Subcutaneous route nightly. INJECTS 30 UNITS 08/03/19 25 Active cyanocobalamin, Vitamin B-12, 500 mcg Tablet Take 500 mcg by mouth daily. Active Active Problems Problem Noted Date Diagnosed Date Paroxysmal atrial flutter 07/04/2024 Elevated troponin 05/15/2023 Shortness of breath 05/15/2023 Chest tightness 05/15/2023 CAD S/P percutaneous coronary angioplasty 2021 Vasovagal syncope 07/25/2021 Syncope 07/25/2021 S/P TAVR (transcatheter aortic valve replacement ) 05/12/2020 Severe aortic valve stenosis 04/10/2020 Overview (04/10/2020): Added automatically from request for surgery [id number] Severe aortic stenosis 03/18/2020 Overview (03/18/2020): Added automatically from request for surgery [id number] Chronic total occlusion of coronary artery 03/18 Overview (03/23/2020): Added automatically from request for surgery [id number] Abnormal cardiovascular stress test 03/18/2020 Overview (03/23/2020): Added automatically from request for surgery [id number] Aortic stenosis, severe 03/17/2020 Coronary artery disease invo lving [place] coronary artery of [place] heart with unstable angina pectoris 03/17/2020 S/P coronary artery bypass graft x 3 03/17/2020 S/P drug eluting coronary stent placement 2019 Type 2 diabetes mellitus, wi th long-term current use of insulin 03/17/2020 Hyperlipidemia LDL goal <70 03/17/2020 Stage 3 chronic kidney disease 03/17/2020 Resolved Problems Problem Noted Date Diagnosed Date Resolved Date NSVT (nonsustained ventricular tachycardia) 08/23/2021 05/11/2023 Overview (08/23/2021): Added automatically from request for surgery [id number] Exertional angina 05/12/2020 07/04/2024 Shortness of breath 03/18/2020 08/10/19 22 Overview (03/23/2020): Added automatically from request for surgery [id number] Encounters Date Type Department Care Team Description 12/06/2024 10:30 AM EDT Office Visit [facility], [address] [place] [address] Poonam Gannon MD Type 2 diabetes mellitus without complication, with long-term current use of insulin (CMS/[facility]) (Primary Dx); Essential hypertension; Stage 3b chronic kidney disease (CMS/HCC); Hyperlipidemia LDL goal <70 10/09/2024 9:55 AM EDT - 10/09/2024 11:59 PM EDT Hospital Encounter [facility] [address], [address] [place], [place] [id number] S/P TAVR (transcatheter aortic valve replacement) Discharge Disposition: Home or Self Care 10/09/2024 9:54 AM EDT Hospital Encounter [facility] [address], [address] [place] [address] Bilateral carotid artery stenosis Discharge Disposition: Home or Self Care 10/09/2024 Results Follow-Up [facility], [facility] [address], [facility] [address] [place] [address] Yeni Day RN VASCI-CAROTID DUPLEX COMP DAVID, 2D ECHO COMPLETE W/STRAIN/3D PRN CONTR/BUBBLE from Last 3 Months Immunizations Immunization Administration Dates Next Due Influenza, High Dose Seasona l, Preservative Free (Fluzone HD 65yrs and over) 02/03/2021 SARS-Cov-2 Vaccine Red Top 1 2+yrs Old (MODERNA) 12/21/2020,05/26/2020,04/29/2020 Family History Medical History Relation Name Comments Diabetes Brother 1 Cancer Brother 2 Diabetes Brother 2 Diabetes Father Prostate Cancer Father Cancer Mother Bone Diabetes Paternal Grandmother Diabetes Sister Heart Disease Sister Hyperlipidemia Sister Hypertension Sister Relation Name Status Comments Brother 1 Alive Brother 2 Father Mother (Age 63) Paternal Grandmother Sister Alive Social History Tobacco Use Types Packs/Day Years Used Date Smoking Tobacco: Former Cigarettes 1 956 - 5183 Smokeless Tobacco: Never Tobacco Cessation:Counseling Given: No Alcohol Use Standard Drinks/Week Comments Not Currently 1 (1 standard drink = 0.6 oz pur e alcohol) 1 drink a day Sex and Gender Information Value Date Recorded Sex Assigned at Male 05/06/2020 4:01 PM EST Legal Sex Male 10:29 AM EDT Gender Identity Male 05/06/2020 4:01 PM EST Sexual Orientation Straight 05/19/2023 10 :30 AM EST Last Filed Vital Signs Vital Sign Reading Time Taken Comments Blood Pressure 100/62 12/06/2024 10:15 AM EDT Pulse 52 07/04/2024 10:14 AM EDT Temperature 36.8 C (98.2 F) 07/31/2023 10:48 AM EDT Respiratory Rate 19 04/02/2024 10:10 AM EST Oxygen Saturation 98% 04/02/2024 10:10 AM EST Inhaled Oxygen Concentration - - Weight 73.5 kg (162 lb) 12/06/2024 10:15 AM EDT Height 175.3 cm (5' 9 ) 12/06/2024 10:15 AM EDT Body Mass Index 23.92 12/06/2024 10:15 AM EDT Plan of Treatment Upcoming Encounters Date Type Department Care Team (Late st Contact Info) Description 01/13/2025 10:15 AM EDT Appointment [facility], [place] [address] [place] [address] [place] [id number] Artem [place] MD [address] [facility] [place] [address] 04/04/2025 10:00 AM EST Appointment [facility] - [facility], [address] [place] [id number] Poonam Gannon MD [address] [facility] [address] [place], [place] [id number] Health Maintenance Due Date Last Done Comments Pneumococcal Vaccine: 50+ Ye ars (1 of 1 - PCV) 01/21/1986 Fall Risk Assessment 01/21/2001 RSV Vaccines (1 - 1-dose 75+ series) 01/21/2011 Advance Care Planning 04/24/2024 Depression Screening 04/24/2024 Influenza Vaccination (#1) 12/23/202401/24, 02/03/2021, 12/24/2019, Additional history exists Diabetes A1c Monitoring 06/08/2025 12/07/19, 08/02/2024, 04/02/2024, Additional history exists Lipid Monitoring 08/02/2025 08/02/2024, , 05/16/2023, Additional history exists Tetanus Vaccination (Every 1 0 Years) 04/15/2030 04/15/2020 Zoster-RZV(Shingrix) Completed 04/03/2019, 03/07/20 18 Influenza Vaccination (Yearly) Discontinued 1 , 02/03/2021, 12/24/2019, Additional history exists Lipid Screening Discontinued 08/02/2024, 09/22, 05/16/2023, Additional history exists Diabetes Mellitus Eye Exam (Yearly) Discontinued 08/21/2024, 08/16/2023, 08/10/2022, Additional history exists COVID-19 Vaccine Completed 09/20/2024, , 02/21/2023, Additional history exists Diabetes Mellitus Foot Care (Yearly) Discontinued 12/06/2024, 04/02/2024, 12/05/2023 Goals Goal Patient Goal Type Associated Problems Recent Progress Patient-Stated? Author Increase physical activity Lifestyle No Clari Baird BS MEd Medical Devices Implanted Type Area Tyre Retreader Device Identifier Shelf Expiration Date Model / Serial / Lot Perclose Pro [place]. - [id number] Implanted:Qt y: 1 on 05/12/2020 at [facility] Closure Device Right: Arterial * [employer] [id number] 01/21/2022 20510-34 / / [id number] Description:FAILED Perclose Pro [place]. - [id number] Implanted:Qt y: 1 on 05/12/2020 by Ochoa Lockwood MD at [facility] Closure Device Right: Arterial * [employer] [id number] 01/21/2022 65620-60 / / [id number] Description:RFA Perclose Prostyle. - [id number] Implanted:Qt y: 1 on 12/08/2021 by Artem [place] MD at [facility] Closure Device Right: Arterial [employer] [id number] 09/22/2023 [id number] / / Description:RFA Perclose Prostyle. - [id number] Implanted:Qt y: 1 on 12/08/2021 by Artem [place] MD at [facility] Closure Device Left: Arterial [employer] [id number] 09/22/2023 [id number] Description:LFA Device Clsr Vasc Angioseal 6fr - [id number] Implanted:Qt y: 1 on 05/18/2023 by Ochoa Lockwood MD at [facility] Closure Device [employer] [id number] 12/28/2023 [id number] / / [id number] Vlv Sapn 3 Ultra Tf Kit 26mm - [id number] Implanted:Qt y: 1 on 05/12/2020 by Ochoa Lockwood MD at [facility] Prosthetic Valve N/A: Aortic Valve * [employer] [id number] 11/24/2021 [id number] / [id number] / Description:TAVR Procedures Procedure Name Priority Date/Time Associated Diagnosis Comments POCT AMB DCA HEMOGLOBIN A1C Routine 12/06/2024 10:20 AM EDT Type 2 diabetes mellitus without complication, with long-term current use of insulin (CMS/HCC) 2D ECHO COMPLETE W/STRAIN/3D PRN CONTR/BUBBLE Routine 10/09/2024 11:54 AM EDT S/P TAVR (transcatheter aortic valve replacement) VASCI-CAROTID DUPLEX COMP DAVID Routine 10/09/2024 10:50 AM EDT Bilateral carotid artery stenosis AMB REFERRAL TO OPHTHALMOLOGY Routine 08/21/2024 2:17 PM EDT LIPID PROFILE Routine 08/02/2024 11:43 AM EDT Type 2 diabetes mellitus without complication, with long-term current use of insulin (CMS/HCC) from Last 3 Months or Most Recently Relevant to Health Maintenance Results * (ABNORMAL) POCT AMB DCA HEMOGLOBIN A1C (12/06/2024 10:20 AM EDT) Hgb A1C 6.3(A) 4.0 - 5.6 % 12/06/2024 10:2 0 AM EDT us Poonam Gannon MD AMB POINT OF CARE Final R esult * 2D ECHO COMPLETE W/STRAIN/3D PRN CONTR/BUBBLE (10/09/2024 11:54 AM EDT) Mitral Valve Regurgitation no significant [facility] Tricuspid Regurgitation no significant [facility]NAL [facility] Anatomical Region Laterality Modality Intravascular Ul trasound 10/09/2024 11:1 6 AM EDT Narrative 10/10/2024 6:05 PM EDT [facility] Echocardiography Lab [address] [place] [address] Transthoracic Echocardiogram Patient: Prosper Roldan Gender: Selam MR #: [id number] Age: 89 Account: [id number] : 1935 Study Date: 10/09/2024 Room: BP: 97 / 59 Referring Physician: Interpreting Physician: Nohemi Guzmán PERFORMING Panel, [place] [employer] DEVELOPER Juliana Strong James Procedure:2D ECHO COMPLETE W/STRAIN/3D PRN Order: Accession CONTR/BUBBLE Number:[id number] Facility: [facility] Indications: S/P TAVR (transcatheter aortic valve replacement) [Z95.2 (ICD-10-CM)]. PMH: Coronary artery disease. Chronic kidney disease. Obstructive sleep apnea. PMH: Myocardial infarction. Risk factors: The patient is a former tobacco user. Hypertension. Diabetes mellitus. Dyslipidemia. Family history is significant for coronary artery disease. S/p TAVR 26mm Piña S3 Ultra (08/10/20). Coronary artery bypass grafting. Study data: Comparison was made to the study of January 2023. Study status: Routine. Procedure: A transthoracic echocardiogram was performed. Image quality was adequate. Scanning was performed from the parasternal, apical, subcostal, and suprasternal notch acoustic windows. Transthoracic echocardiogram. M-mode, complete 2D, complete spectral Doppler, and Color Flow Doppler. Age: Patient is 89year(s) old. Sex: gender: male. Body mass index: BMI: 23.3kg/m^2. Patient status: Outpatient. Study date: Study date: 10/09/2024. Study time: 11:16 AM. Location: Echo laboratory. Study Conclusions - Prior tests and procedures: S/p TAVR 26mm Piña S3 Ultra (08/10/20). - Left ventricle: The cavity size is normal. Wall thickness with no left ventricular hypertrophy. Systolic function is normal. The estimated ejection fraction is 60-65%, by visual assessment. Wall motion is normal; there are no regional wall motion abnormalities. The LVOT stroke index is 48ml/m^2. - Aortic valve: A bioprosthetic valve is present. Normal function and no stenosis or regurgitation is noted. The peak systolic velocity is 2.1m/sec. The mean systolic gradient is 10mm Hg. The peak systolic gradient is 18mm Hg. The LVOT to aortic valve VTI ratio is 0.5. The valve area is 1.6cm^2. - Mitral valve: The annulus is calcified. There is thickening. There is calcification. Leaflet separation is reduced, particularly the posterior leaflet. No stenosis noted; Mean PG 3mmHg at 78bpm. - Left atrium: The atrium is markedly dilated. - Right atrium: The atrium is dilated. 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 - Inferior vena cava: The IVC is normal-sized. Respirophasic diameter changes are in the normal range (> 50%), consistent with normal central venous pressure. - Pulmonary arteries: The peak systolic pressure is 37mm Hg. Cardiac Anatomy Left ventricle: - The cavity size is normal. Wall thickness with no left ventricular hypertrophy. Systolic function is normal. The estimated ejection fraction is 60-65%, by visual assessment. Wall motion is normal; there are no regional wall motion abnormalities. The end-diastolic septal thickness is 1.5cm. The end-diastolic dimension is 4.5cm. The end-diastolic posterior wall thickness is 0.8cm. The end-diastolic relative thickness (SMM) is 0.36. The wall mass is 193g. The wall mass index is 103g/m^2. The chordal end-systolic diameter is 3.2cm. The end-systolic diameter index at the chordal level is 1.7cm/m^2. The fractional shortening at the chordal level is 30%. The stroke volume index is 34ml/m^2. The ejection fraction is 62%. The lateral e' velocity is 9.5cm/sec. The lateral E/e' ratio is 17. The medial e' velocity is 5.0cm/sec. The medial E/e' ratio is 31. The average of medial and lateral annular e' velocities is 7.2cm/sec. The average E/e' ratio is 22. The LVOT diameter during systole is 2.0cm. The LVOT endocardial area is 3.1cm^2. The LVOT peak systolic velocity is 1.3m/sec. The LVOT mean systolic velocity is 1.31m/sec. The LVOT systolic velocity-time integral is 24.9cm. The LVOT peak systolic gradient is 7mm Hg. The LVOT stroke index is 48ml/m^2. - Left ventricular diastolic function cannot be assessed due to significant MAC. Aortic valve: - A bioprosthetic valve is present. Cusp separation is normal. Velocity is within the normal range. There is no stenosis. There is no significant regurgitation. The peak systolic velocity is 2.1m/sec. The mean systolic velocity is 1.5m/sec. The systolic velocity-time integral is 49.8cm. The mean systolic gradient is 10mm Hg. The peak systolic gradient is 18mm Hg. The LVOT to aortic valve VTI ratio is 0.5. The valve area is 1.6cm^2. The valve area index is 0.84cm^2/m^2. The ratio of LVOT to aortic valve peak velocity is 0.62. The valve area is 2.0cm^2. The valve area index is 1.04cm^2/m^2. The ratio of LVOT to aortic valve mean velocity is 0.87. The valve area is 2.7cm^2. The valve area index is 1.47cm^2/m^2. Aorta: The end-diastolic aortic root diameter is 3.2cm. Aortic root: The root is not dilated. Mitral valve: - The annulus is calcified. There is thickening. There is calcification. Leaflet separation is reduced, particularly the posterior leaflet. Inflow velocity is within the normal range. There is no evidence for stenosis. There is no significant regurgitation. The peak E-wave velocity is 1.58m/sec. The peak A-wave velocity is 0.61m/sec. The deceleration time is 190ms. The mean diastolic gradient is 3mm Hg. The peak diastolic gradient is 10mm Hg. Left atrium: The atrium is markedly dilated. The volume is 94ml. The volume index is 50ml/m^2. Right ventricle: - The cavity size is normal. Wall thickness is normal. Systolic function is normal. The tricuspid annular plane systolic excursion is 1.7cm. The RV pressure during systole is 37mm Hg. The RV s' is 9.7cm/sec. Pulmonic valve: - The valve is structurally normal. There is mild regurgitation. The peak systolic velocity is 1.2m/sec. Pulmonary arteries: Not well visualized. The peak systolic pressure is 37mm Hg. Tricuspid valve: - Leaflet separation is normal. 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 Inflow velocity is within the normal range. There is no evidence for stenosis. There is no significant regurgitation. The regurgitant peak velocity is 2.9m/sec. The peak RV-RA systolic gradient is 34mm Hg. Right atrium: The atrium is dilated. The estimated central venous pressure is 3mm Hg. The volume at ventricular end-systole is 78.7ml. The end-systolic volume index is 42ml/m^2. Pericardium: - The pericardium is normal in appearance. There is no pericardial effusion. Systemic veins: Inferior vena cava: The IVC is normal-sized. Respirophasic diameter changes are in the normal range (> 50%), consistent with normal central venous pressure. The proximal internal diameter during inspiration is 0.6cm. The proximal internal diameter during expiration is 2.0cm. The respirophasic change in diameter is 67.3%. Measurements Left ventricle Value Ref 02/20/2023 ESD, LAX chord (N) 3.2 cm 2.5 - 4.0 3.1 ESD/bsa, LAX (N) 1.7 cm/m^2 1.3 - 2.1 1.6 chord FS, LAX chord (N) 30 % 25 - 43 30 SV/bsa, 1-p A4C 34 ml/m^2 31 EF, 2-p (N) 62 % 52 - 72 57 IVS, ED, MM on (H) 1.5 cm 0.6 - 1.0 1.4 2D RIVERA, MM on 2D (N) 4.5 cm 4.2 - 5.8 4.4 PW, ED, MM on 0.8 cm 0.9 2D RWT, ED SMM (N) 0.36 0.24 - 0.41 0.42 Mass, MM on 2D (N) 193 g 88 - 224 183 Mass/bsa, MM on (N) 103 g/m^2 49 - 115 93 2D E', lat valentina, (L) 9.5 cm/sec >=10.0 6.2 TDI E/e', lat valent[place], (H) 17 <=13 23 TDI E', med valentina, (L) 5.0 cm/sec >=7.0 5.0 TDI E/e', med valentina, 31 28 TDI E', avg, TDI 7.2 cm/sec 5.6 E/e', avg, TDI (H) 22 <=14 25 LVOT Value Ref 02/20/2023 Diam, S 2.0 cm 2.0 Area 3.1 cm^2 3.1 Peak heriberto, S 1.3 m/sec 0.8 Mean heriberto, S 1.31 m/sec 0.58 VTI, S 24.9 cm 19.6 Peak grad, S 7 mm Hg 3 SV/bsa 48 ml/m^2 Right ventricle Value Ref 02/20/2023 TAPSE, MM (N) 1.7 cm >=1.7 2.2 Pressure, S 37 mm Hg 38 S' lateral (N) 9.7 cm/sec >=9.5 9.4 Left atrium Value Ref 02/20/2023 Vol, S (H) 94 ml 18 - 58 89 Vol/bsa, S (H) 50 ml/m^2 16 - 34 45 Right atrium Value Ref 02/20/2023 Vol, ES, A/L 78.7 ml 70.3 Vol/bsa, ES, (H) 42 ml/m^2 11 - 39 36 A/L Aortic valve Value Ref 02/20/2023 Peak v, S 2.1 m/sec 2.2 Mean v, S 1.5 m/sec 1.6 VTI, S 49.8 cm 49.7 Mean grad, S 10 mm Hg 11 Peak grad, S 18 mm Hg 19 LVOT/AV, VTI 0.5 0.39 ratio MAGGIE, VTI 1.6 cm^2 1.2 MAGGIE/bsa, VTI 0.84 cm^2/m^2 0.63 LVOT/AV, Vpeak 0.62 0.36 ratio MAGGIE, Vmax 2.0 cm^2 1.1 MAGGIE/bsa, Vmax 1.04 cm^2/m^2 0.58 LVOT/AV, Vmean 0.87 0.36 ratio MAGGIE, Vmean 2.7 cm^2 1.1 MAGGIE/bsa, Vmean 1.47 cm^2/m^2 0.58 Mitral valve Value Ref 02/20/2023 Peak E 1.58 m/sec 1.42 Peak A 0.61 m/sec 0.81 Decel time 190 ms 296 Mean grad, D 3 mm Hg Peak grad, D 10 mm Hg 8 Pulmonic valve Value Ref 02/20/2023 Peak v, S 1.2 m/sec 1.2 Tricuspid valve Value Ref 02/20/2023 TR peak v (H) 2.9 m/sec <=2.8 3 Peak RV-RA 34 mm Hg 35 grad, S Aortic root Value Ref 02/20/2023 Root diam, ED (N) 3.2 cm 2.6 - 4.0 2.9 Pulmonary Value Ref 02/20/2023 artery Pressure, S 37 mm Hg 38 Systemic veins Value Ref 02/20/2023 Estimated CVP 3 mm Hg 3 Inferior vena Value Ref 02/20/2023 cava Prox diam, insp (N) 0.6 cm <=2.1 0.7 Prox diam, exp 2.0 cm 2.1 Collapse 67.3 % 66.6 Legend: (L) and (H) isrrael values outside specified reference range. (N) gallagher values inside specified reference range. Reviewed and confirmed by Nohemi Guzmán [id number]:54 Procedure Note Nohemi Guzmán Jr., MD - 10/10/2024 [facility] Echocardiography Lab [address] [place] [address] Transthoracic Echocardiogram Patient: Prosper Roldan Gender: Selam MR #: [id number] Age: 89 Account: [id number] : 1935 Study Date: 10/09/2024 Room: BP: 97 / 59 Referring Physician: Interpreting Physician: Nohemi Guzmán PERFORMING Panel, [place] [employer]EL[employer] Juliana Strong James Procedure:2D ECHO COMPLETE W/STRAIN/3D PRN Order: Accession CONTR/BUBBLE Number:[id number] Facility: [facility] Indications: S/P TAVR (transcatheter aortic valve replacement) [Z95.2 (ICD-10-CM)]. PMH: Coronary artery disease. Chronic kidney disease. Obstructivesleep apnea. PMH: Myocardial infarction. Risk factors: The patient is a former tobacco user. Hypertension. Diabetes mellitus. Dyslipidemia.Family history is significant for coronary artery disease. S/p TAVR 26mm Piña S3 Ultra (08/10/20). Coronary artery bypassgrafting. Study data: Comparison was made to the study of January 2023. Study status: Routine. Procedure: A transthoracic echocardiogram wasperformed. Image quality was adequate. Scanning was performed from the parasternal, apical, subcostal, and suprasternal notch acoustic windows. Transthoracic echocardiogram. M-mode, complete 2D, complete spectral Doppler, and Color Flow Doppler. Age: Patient is 89year(s) old. Sex: gender: male. Body mass index: BMI: 23.3kg/m^2. Patient status: Outpatient. Study date: Study date: 10/09/2024. Study time: 11:16 AM. Location: Echo laboratory. Study Conclusions - Prior tests and procedures: S/p TAVR 26mm Piña S3 Ultra (08/10/20). - Left ventricle: The cavity size is normal. Wall thickness with no left ventricular hypertrophy. Systolic function is normal. The estimated ejection fraction is 60-65%, by visual assessment. Wall motion isnormal; there are no regional wall motion abnormalities. The LVOT stroke indexis 48ml/m^2. - Aortic valve: A bioprosthetic valve is present. Normal function and no stenosis or regurgitation is noted. The peak systolic velocity is 2.1m/sec. The mean systolic gradient is 10mm Hg. The peak systolic gradient is 18mm Hg. The LVOT to aortic valve VTI ratio is 0.5. Thevalve area is 1.6cm^2. - Mitral valve: The annulus is calcified. There is thickening. There is calcification. Leaflet separation is reduced, particularly theposterior leaflet. No stenosis noted; Mean PG 3mmHg at 78bpm. - Left atrium: The atrium is markedly dilated. - Right atrium: The atrium is dilated. 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 - Inferior vena cava: The IVC is normal-sized. Respirophasic diameter changes are in the normal range (> 50%), consistent with normalcentral venous pressure. - Pulmonary arteries: The peak systolic pressure is 37mm Hg. Cardiac Anatomy Left ventricle: - The cavity size is normal. Wall thickness with no left ventricular hypertrophy. Systolic function is normal. The estimated ejectionfraction is 60-65%, by visual assessment. Wall motion is normal; there are no regional wall motion abnormalities. The end-diastolic septal thicknessis 1.5cm. The end-diastolic dimension is 4.5cm. The end-diastolicposterior wall thickness is 0.8cm. The end-diastolic relative thickness (SMM) is 0.36. The wall mass is 193g. The wall mass index is 103g/m^2. Thechordal end-systolic diameter is 3.2cm. The end-systolic diameter index at the chordal level is 1.7cm/m^2. The fractional shortening at the chordallevel is 30%. The stroke volume index is 34ml/m^2. The ejection fraction is62%. The lateral e' velocity is 9.5cm/sec. The lateral E/e' ratio is 17.The medial e' velocity is 5.0cm/sec. The medial E/e' ratio is 31. Theaverage of medial and lateral annular e' velocities is 7.2cm/sec. The averageE/e' ratio is 22. The LVOT diameter during systole is 2.0cm. The LVOT endocardial area is 3.1cm^2. The LVOT peak systolic velocity is1.3m/sec. The LVOT mean systolic velocity is 1.31m/sec. The LVOT systolic velocity-time integral is 24.9cm. The LVOT peak systolic gradient is7mm Hg. The LVOT stroke index is 48ml/m^2. - Left ventricular diastolic function cannot be assessed due tosignificant MAC. Aortic valve: - A bioprosthetic valve is present. Cusp separation is normal. Velocityis within the normal range. There is no stenosis. There is no significant regurgitation. The peak systolic velocity is 2.1m/sec. The meansystolic velocity is 1.5m/sec. The systolic velocity-time integral is 49.8cm.The mean systolic gradient is 10mm Hg. The peak systolic gradient is 18mmHg. The LVOT to aortic valve VTI ratio is 0.5. The valve area is 1.6cm^2.The valve area index is 0.84cm^2/m^2. The ratio of LVOT to aortic valvepeak velocity is 0.62. The valve area is 2.0cm^2. The valve area index is 1.04cm^2/m^2. The ratio of LVOT to aortic valve mean velocity is 0.87.The valve area is 2.7cm^2. The valve area index is 1.47cm^2/m^2. Aorta: The end-diastolic aortic root diameter is 3.2cm. Aortic root: The root is not dilated. Mitral valve: - The annulus is calcified. There is thickening. There is calcification. Leaflet separation is reduced, particularly the posterior leaflet.Inflow velocity is within the normal range. There is no evidence forstenosis. There is no significant regurgitation. The peak E-wave velocity is 1.58m/sec. The peak A-wave velocity is 0.61m/sec. The deceleration timeis 190ms. The mean diastolic gradient is 3mm Hg. The peak diastolicgradient is 10mm Hg. Left atrium: The atrium is markedly dilated. The volume is 94ml. Thevolume index is 50ml/m^2. Right ventricle: - The cavity size is normal. Wall thickness is normal. Systolic functionis normal. The tricuspid annular plane systolic excursion is 1.7cm. TheRV pressure during systole is 37mm Hg. The RV s' is 9.7cm/sec. Pulmonic valve: - The valve is structurally normal. There is mild regurgitation. Thepeak systolic velocity is 1.2m/sec. Pulmonary arteries: Not well visualized. The peak systolic pressure is 37mm Hg. Tricuspid valve: - Leaflet separation is normal. 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 Inflow velocity is withinthe normal range. There is no evidence for stenosis. There is nosignificant regurgitation. The regurgitant peak velocity is 2.9m/sec. The peakRV-RA systolic gradient is 34mm Hg. Right atrium: The atrium is dilated. The estimated central venouspressure is 3mm Hg. The volume at ventricular end-systole is 78.7ml. Theend-systolic volume index is 42ml/m^2. Pericardium: - The pericardium is normal in appearance. There is no pericardialeffusion. Systemic veins: Inferior vena cava: The IVC is normal-sized. Respirophasic diameterchanges are in the normal range (> 50%), consistent with normal central venous pressure. The proximal internal diameter during inspiration is 0.6cm.The proximal internal diameter during expiration is 2.0cm. The respirophasic change in diameter is 67.3%. Measurements Left ventricle Value Ref 02/20/2023 ESD, LAX chord (N) 3.2 cm 2.5 - 4.0 3.1 ESD/bsa, LAX (N) 1.7 cm/m^2 1.3 - 2.1 1.6 chord FS, LAX chord (N) 30 % 25 - 43 30 SV/bsa, 1-p A4C 34 ml/m^2 31 EF, 2-p (N) 62 % 52 - 72 57 IVS, ED, MM on (H) 1.5 cm 0.6 - 1.0 1.4 2D RIVERA, MM on 2D (N) 4.5 cm 4.2 - 5.8 4.4 PW, ED, MM on 0.8 cm 0.9 2D RWT, ED SMM (N) 0.36 0.24 - 0.41 0.42 Mass, MM on 2D (N) 193 g 88 - 224 183 Mass/bsa, MM on (N) 103 g/m^2 49 - 115 93 2D E', lat valent[place], (L) 9.5 cm/sec >=10.0 6.2 TDI E/e', lat [place], (H) 17 <=13 23 TDI E', med valent[place], (L) 5.0 cm/sec >=7.0 5.0 TDI E/e', med valent[place], 31 28 TDI E', avg, TDI 7.2 cm/sec 5.6 E/e', avg, TDI (H) 22 <=14 25 LVOT Value Ref 02/20/2023 Diam, S 2.0 cm 2.0 Area 3.1 cm^2 3.1 Peak heriberto, S 1.3 m/sec 0.8 Mean heriberto, S 1.31 m/sec 0.58 VTI, S 24.9 cm 19.6 Peak grad, S 7 mm Hg 3 SV/bsa 48 ml/m^2 Right ventricle Value Ref 02/20/2023 TAPSE, MM (N) 1.7 cm >=1.7 2.2 Pressure, S 37 mm Hg 38 S' lateral (N) 9.7 cm/sec >=9.5 9.4 Left atrium Value Ref 02/20/2023 Vol, S (H) 94 ml 18 - 58 89 Vol/bsa, S (H) 50 ml/m^2 16 - 34 45 Right atrium Value Ref 02/20/2023 Vol, ES, A/L 78.7 ml 70.3 Vol/bsa, ES, (H) 42 ml/m^2 11 - 39 36 A/L Aortic valve Value Ref 02/20/2023 Peak v, S 2.1 m/sec 2.2 Mean v, S 1.5 m/sec 1.6 VTI, S 49.8 cm 49.7 Mean grad, S 10 mm Hg 11 Peak grad, S 18 mm Hg 19 LVOT/AV, VTI 0.5 0.39 ratio MAGGIE, VTI 1.6 cm^2 1.2 MAGGIE/bsa, VTI 0.84 cm^2/m^2 0.63 LVOT/AV, Vpeak 0.62 0.36 ratio MAGGIE, Vmax 2.0 cm^2 1.1 MAGGIE/bsa, Vmax 1.04 cm^2/m^2 0.58 LVOT/AV, Vmean 0.87 0.36 ratio MAGGIE, Vmean 2.7 cm^2 1.1 MAGGIE/bsa, Vmean 1.47 cm^2/m^2 0.58 Mitral valve Value Ref 02/20/2023 Peak E 1.58 m/sec 1.42 Peak A 0.61 m/sec 0.81 Decel time 190 ms 296 Mean grad, D 3 mm Hg Peak grad, D 10 mm Hg 8 Pulmonic valve Value Ref 02/20/2023 Peak v, S 1.2 m/sec 1.2 Tricuspid valve Value Ref 02/20/2023 TR peak v (H) 2.9 m/sec <=2.8 3 Peak RV-RA 34 mm Hg 35 grad, S Aortic root Value Ref 02/20/2023 Root diam, ED (N) 3.2 cm 2.6 - 4.0 2.9 Pulmonary Value Ref 02/20/2023 artery Pressure, S 37 mm Hg 38 Systemic veins Value Ref 02/20/2023 Estimated CVP 3 mm Hg 3 Inferior vena Value Ref 02/20/2023 cava Prox diam, insp (N) 0.6 cm <=2.1 0.7 Prox diam, exp 2.0 cm 2.1 Collapse 67.3 % 66.6 Legend: (L) and (H) isrrael values outside specified reference range. (N) gallagher values inside specified reference range. Reviewed and confirmed by Nohemi Guzmán [id number] us Artem Elizabeth MD C[facility] ECHO ORDERABLES Final Re sult * VASCI-CAROTID DUPLEX COMP DAVID (10/09/2024 10:50 AM EDT) Anatomical Region Laterality Modality Vascular, Head Intravascular Ul trasound 10/09/2024 10:5 6 AM EDT Narrative 10/09/2024 10:56 AM EDT FINAL IMPRESSIONS 1. Estimated diameter reduction of the right internal carotid artery is less than 50%. 2. Estimated diameter reduction of the left internal carotid artery is 70-99% by velocity criteria; however, the left internal/common carotid artery ratio suggests a lesser degree of stenosis. 3. There is no evidence of significant stenosis in the right external carotid artery. 4. 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 5. The bilateral vertebral arteries are patent with antegrade flow. 6. The bilateral subclavian arteries reveal no evidence of significant stenosis. 7. There has been no significant change from the previous study of 10-06-2023. Procedure Note Isrrael Roberts MD - 10/09/2024 FINAL IMPRESSIONS 1. Estimated diameter reduction of the right internal carotid artery isless than 50%. 2. Estimated diameter reduction of the left internal carotid artery is70-99% by velocity criteria; however, the left internal/common carotid artery ratio suggestsa lesser degree of stenosis. 3. There is no evidence of significant stenosis in the right externalcarotid artery. 4. There is greater than 50% stenosis of the left external carotidartery. 5. The bilateral vertebral arteries are patent with antegrade flow. 6. The bilateral subclavian arteries reveal no evidence of significantstenosis. 7. There has been no significant change from the previous study [id number]. Artem Elizabeth MD [facility] ORDERABLES Fin al Result * AMB REFERRAL TO OPHTHALMOLOGY (08/21/2024 2:17 PM EDT) Historical Provider OUTPATIENT REFERRAL ORDERABL ES Final Result * (ABNORMAL) LIPID PROFILE (08/02/2024 11:43 AM EDT) [facility] Cholesterol 112(L) 125 - 199 mg/dL [facility] EXTERNAL LAB Comment: TOTAL CHOLESTEROL INTERPRETATION: Less than 200 mg/dL Desireable 200-239 mg/dL Borderline Greater or Equal to 240 mg/dL High LDL Calculated 58 0 - 100 mg/dL TC EXTERNAL LAB Comment: LDL CHOLESTEROL INTERPRETATION: Less than 100 mg/dL Optimal 100-129 mg/dL Near optimal/above optimal 130-159 mg/dL Borderline High 160-189 mg/dL High Greater or Equal to 190 mg/dL Very High HDL 41 40 - 180 mg/dL [facility] EXTERNAL LAB Comment: HDL CHOLESTEROL INTERPRETATION: Less than 40 mg/dL Low Greater than 60 mg/dL Desirable Triglycerides 66 0 - 149 mg/dL [facility] EXTERNAL LAB Comment: TOTAL TRIGLYCERIDE INTERPRETATION: Less than 150 mg/dL Normal 150-199 mg/dL Borderline HIgh 200-499 mg/dL High Greater or Equal to 500 mg/dL Very High NONHDL Calculated 71 0 - 129 mg/dL TC EXTERNAL LAB Comment: NON-HDL INTERPRETATION: Less than 130 mg/dL Desirable 130-159 mg/dL Above Desirable 160-189 mg/dL Borderline High 190-219 mg/dL High Greater than or equal to 220 mg/dL Very High Serum (Serum) 08/02/2024 11: 43 AM EDT 08/02/2024 4:18 PM EDT Poonam Gannon MD CHEMISTRY ORDERABLES Elham aguirre Result [facility] [address] [place] [address], [facility] from Last 3 Months or Most Recently Relevant to Health Maintenance Insurance [employer] MEDICARE HU[employer] MEDICARE MEDICARE Advance Directives For more information, please contact: [phone] Documents on File Type Date Recorded Patient Head Rigger Expl anation Advance Directives 05/06/2020 10:07 AM LW & POA & MEDICAL DISCLOSURE INFO * Full Code (Latest Code Status on File) Date Activated Date Inactivated Comments 05/18/2023 10:56 AM 07/31/2023 10:47 AM No automate d chest compression devices for VAD Patients * Full Code Date Activated Date Inactivated Comments 12/08/2021 12:44 PM 05/18/2023 7:06 AM No automate d chest compression devices for VAD Patients * Full Code Date Activated Date Inactivated Comments 09/14/2021 12:52 PM 12/08/2021 8:19 AM No automate d chest compression devices for VAD Patients * Full Code Date Activated Date Inactivated Comments 07/25/2021 3:08 PM 09/14/2021 9:05 AM No automated chest compression devices for VAD Patients * Full Code Date Activated Date Inactivated Comments 05/12/2020 6:58 AM 07/25/2021 2:23 PM No automated chest compression devices for VAD Patients Care Teams Tree Surgeon Relationship Specialty Start Date End Date Man Farrell MD [address] [place] [address] PCP - General Family Medicine 05/31/21 [place], Airam Flores RN Registered Nurse Cardiology 03/20/20 Redd Naidu MD Consulting Physician Interventional Cardiology 03/20/20 Asher Whitmore MD Interventional Cardiology 03/23/20 Ochoa Lockwood MD Interventional Cardiology 06/16/20 Poonam Gannon MD [address] [facility] [address] [place] [address] Endocrinology/Diabetes/M etabolism 06/23/20 Chrissy So, CURT Registered Nurse 06/25/20 Magdalene Ibarra NP [address] [place] [address] Nurse Practitioner Nurse Practitioner, Acute Care 07/27/20 Terell Jain RN [address] [place] [address] Registered Nurse 09/23/20 Isaac Bryan MD [address] [place] [address] Cardiology 12/29/20 Artem Elizabeth MD [address] [place] [address] Interventional Cardiology 05/31/21 Camilo Parada MD [address] [facility] [address] [place], [place] [id number] Cardiology 07/25/21 Addis Walton PA [address] [place] [address] Cardiology 11/23/21
--- OUTSIDE RECORDS SUMMARY | 2024-12-19 10:11 | XMS_ITS | Encounter Summary ---
Author Organization [facility] Address [address] [place] [address] Care Team Providers Care Asbestos Abatement Worker Name Role Phone Airam Horne RN Unavailable + [phone] Redd Naidu MD Unavailable Unavailable Asher Whitmore MD Unavailable Unavailable Kary Limon NP Unavailable UnavailKary Monet RN Unavailable + [phone] Ochoa Lockwood MD Unavailable Unavailable Poonam Gannon MD Unavailable + [phone] Chrissy So RN Unavailable Unavailab Magdalene Pinzon NP Unavailable + [phone] Terell Jain RN Unavailable + Isaac Bryan MD Unavailable [phone] Artem Elizabeth MD Unavailable [phone] Man Farrell MD Primary Care Provider [phone] Camilo Parada MD Unavailable [phone] Addis Walton Unavailable [phone] Reason for Referral * Radiology Services (Routine) - Closed Specialty Diagnoses / Procedures Referred By Contjavi t Referred To Contact Diagnoses Severe aortic valve stenosis Procedures DIAG-CHEST PA & LATERAL Ochoa Lockwood MD [address] [place] [address] [facility] [address] [place] [phone] Phone: tel: Referral ID Status Reason Start Date Expiration Date Visits Re quested Visits Authorized [id number] Closed 04/10/2020 10/07/2020 1 1 Encounter Details Date Type Department Care Team (Latest Contact Info) Description 04/10/2020 [facility]op [facility] [address] [place] [phone] Airam Horne RN Severe aortic valve stenosis (Primary Dx) Social History Tobacco Use Types Packs/Day Years Used Date Smoking Tobacco: Former Cigarettes 1 3858 Smokeless Tobacco: Never Alcohol Use Standard Drinks/Week Comments Not Currently 0 (1 standard drink = 0.6 oz pur e alcohol) occassionally Sex and Gender Information Value Date Recorded Sex Assigned at Male 05/06/2020 4:01 PM EST Legal Sex Male 10:29 AM EDT Gender Identity Male 05/06/2020 4:01 PM EST Sexual Orientation Straight 05/19/2023 10 :30 AM EST COVID-19 Exposure Response Date Recorded In the last month, have you been in contact with someone who was confirmed or suspected to have Coronavirus / COVID-19? Unable to assess 04/03/2020 12:21 PM ES T documented as of this encounter Plan of Treatment Upcoming Encounters Date Type Department Care Team (Late st Contact Info) Description 01/13/2025 10:15 AM EDT Appointment [facility], [facility] [address], [address] [place] [phone] Artem Elizabeth MD [address] [place], [place] [id number] 04/04/2025 10:00 AM EST Appointment [facility], [address] [place] [address] Poonam Gannon MD [address] [place] [address] documented as of this encounter Results * TYPE AND SCREEN (05/06/2020 12:54 PM EST) ABORh A [facility] Rh Type Positive [facility] Blood 05/06/2020 12:5 4 PM EST 05/06/2020 12:54 PM EST Ochoa Lockwood MD BLOOD BANK TEST ORDERABLES Fin al Result [facility] EXTER[facility] [address] * (ABNORMAL) URINALYSIS W/ REFLEX TO MICROSCOPIC (05/06/2020 12:53 PM EST) Color, UA Yellow Yellow,Straw [facility] Clarity, UA Clear Clear [facility] Glucose, UA Negative Negative mg/dL [facility] Bilirubin, UA Negative Negative [facility] Ketones, UA Negative Negative mg/dL [facility] Spec Grav, UA 1.018 1.005 - 1.035 [facility] Blood, UA Negative Negative [facility] pH, Urine 6.0 5.0 - 8.0 [facility] Protein, UA 30(A) Negative mg/dL [facility] Urobilinogen, UA 2.0(A) <2.0 mg/dL [facility] Nitrite, UA Negative Negative [facility] Leukocyte esterase UA Negative Negative [facility] RBC, UA <1 /HPF 0 - 3 /HPF [facility] WBC 1 0 - 5 /HPF [facility] Squam Epithel, UA <1 /HPF 0 - 5 /HPF [facility] Mucus, UA Present(A) None Seen /HPF [facility] Urine 05/06/2020 12:5 3 PM EST 05/06/2020 12:53 PM EST Ochoa Lockwood MD URINE ORDERABLES Final Result Performing Organization Address City/[facility]/ZIP Co de Phone Number [facility] EX[facility] [address] * (ABNORMAL) B NATRIURETIC PEPTIDE (05/06/2020 12:52 PM EST) BNP 155(H) 0 - 100 pg/mL [facility] Plasma 05/06/2020 12:5 2 PM EST 05/06/2020 12:52 PM EST Ochoa Lockwood MD CHEMISTRY ORDERABLES Final Res ult Performing Organization Address [facility] de Phone Number [facility] [address] * (ABNORMAL) HGB, A1C (GLYCOHEMOGLOBIN) (05/06/2020 12:52 PM EST) Hgb A1C 6.7(H) 4.0 - 5.6 % [facility] Comment: Reference Ranges for Hgb A1c: Increased risk for diabetes: 5.7-6.4% Probable diabetes: >=6.5% Desired control for previously diagnosed diabetics: <7.0% Many conditions can affect the Hgb A1c value including hemolysis, recent transfusion, hemoglobin variants, thalassemias, severe chronic hepatic and renal disease and iron deficiency among others. Please note that results from this assay are invalid for patients with abnormal amounts of Hemoglobin (HbF). Results must be interpreted in the proper clinical context. This method is certified by the National Glycohemoglobin Standardization program (NGSP) and traceable to [facility]. Estimated Average Glucose 146(H) 68 - 114 mg/dL [facility] Whole Blood 05/06/2020 12:5 2 PM EST 05/06/2020 12:52 PM EST Ochoa Lockwood MD CHEMISTRY ORDERABLES Final Res ult Performing Organization Address [facility] Co de Phone Number [facility] [address] * FIBRINOGEN (05/06/2020 12:52 PM EST) Fibrinogen 289 200 - 393 mg/dL [facility] Plasma 05/06/2020 12:5 2 PM EST 05/06/2020 12:52 PM EST Ochoa Lockwood MD HEMATOLOGY ORDERABLES Final Re sult Performing Organization Address [facility] Co de Phone Number [facility] [address] * APTT (05/06/2020 12:52 PM EST) PTT 30.7 23.1 - 37.6 seconds [facility] Comment: Effective 04/22/2020, there is a new lot number of PTT reagent. There are no changes to the reference range or critical values. Effective 04/22/2020, there is a new lot number of PTT reagent. There are no changes to the reference range or critical values. Plasma 05/06/2020 12:5 2 PM EST 05/06/2020 12:52 PM EST Ochoa Lockwood MD HEMATOLOGY ORDERABLES Final Re sult Performing Organization Address [facility] de Phone Number [facility] [address] * PT (PRO TIME INCLUDES INR) (05/06/2020 12:52 PM EST) Protime 11.0 10.0 - 13.6 seconds [facility] Comment: Effective 09/10/2019, there is a new lot number of PT reagent. The new reference range is 10.0-13.6s and the new critical value is >/= 55.9s. INR 0.9 0.9 - 1.1 [facility] Comment: RECOMMENDED THERAPEUTIC RANGES USING INR : Stable Oral Anticoagulant Therapy: 2.0 - 3.0 Mechanical Prosthetic Heart Valve: 2.5 - 3.5 Recurrent Acute Myocardial Infarction: 2.5 - 3.5 Plasma 05/06/2020 12:5 2 PM EST 05/06/2020 12:52 PM EST Ochoa Lockwood MD HEMATOLOGY ORDERABLES Final Re sult Performing Organization Address [facility] Co de Phone Number [facility] [address] * (ABNORMAL) CBC WITH DIFFERENTIAL (05/06/2020 12:52 PM EST) WBC 8.1 3.8 - 10.8 10*3/uL [facility] RBC 4.10(L) 4.20 - 5.80 10*6/uL [facility] Hemoglobin 13.4 13.2 - 17.1 g/dL [facility] Hematocrit Blood 41.0 38.5 - 50.0 % [facility] MCV 99.9 80.0 - 100.0 fL [facility] MCH 32.8 27.0 - 33.0 pg [facility] MCHC 32.8 32.0 - 36.0 g/dL [facility] RDW 12.6 11.0 - 15.0 % [facility] Platelets 143 140 - 400 10*3/uL [facility] MPV 9.2 7.5 - 11.5 fL [facility] Whole Blood 05/06/2020 12:5 2 PM EST 05/06/2020 12:52 PM EST us Ochoa Lockwood MD HEMATOLOGY ORDERABLES Final Re sult Performing Organization Address [facility] Co de Phone Number [facility] [address] * LIVER PROFILE (05/06/2020 12:51 PM EST) Total Bilirubin 0.6 0.2 - 1.2 mg/dL [facility] Bilirubin, Direct 0.2 0.0 - 0.5 mg/dL [facility] AST 30 0 - 40 U/L [facility] ALT 30 0 - 60 U/L [facility] Alkaline Phosphatase 55 33 - 140 U/L [facility] Total Protein 6.9 6.0 - 8.0 g/dL [facility] Albumin 4.5 3.5 - 5.0 g/dL [facility] Globulin 2.4 2.0 - 3.7 g/dL [facility] Albumin/Globulin Ratio 1.9 1.0 - 2.1 [facility] Plasma 05/06/2020 12:5 1 PM EST 05/06/2020 12:50 PM EST us Ochoa Lockwood MD CHEMISTRY ORDERABLES Final Res ult [facility] [address] * (ABNORMAL) COMPREHENSIVE METABOLIC PANEL (05/06/2020 12:51 PM EST) Sodium 141 135 - 146 mmol/L [facility] Potassium 4.2 3.5 - 5.1 mmol/L [facility] Chloride 102 98 - 110 mmol/L [facility] CO2 31(H) 22 - 29 mmol/L [facility] Anion Gap 8 5 - 13 mmol/L [facility] Comment:Anion gap calculatio n does not include potassium (K+) value. BUN 21 7 - 25 mg/dL [facility] Creatinine 1.57(H) 0.50 - 1.30 mg/dL [facility] Glucose 153(H) 71 - 99 mg/dL [facility] GFR MDRD Af Amer 51 See Note [facility] Comment: GFR is estimated using Creatinine, age, gender and race. Patient's values should be interpreted as a trend. Between 30 and 90 ml/min/1.73m2, clinical correlation is needed. For additional information: www.kidney.org Calcium 9.3 8.4 - 10.5 mg/dL [facility] GFR MDRD Non Af Amer 42 See Note [facility] Comment: GFR is estimated using Creatinine, age, gender and race. Patient's values should be interpreted as a trend. Between 30 and 90 ml/min/1.73m2, clinical correlation is needed. For additional information: www.[email or web address] Total Bilirubin 0.6 0.2 - 1.2 mg/dL [facility] AST 30 0 - 40 U/L [facility] ALT 30 0 - 60 U/L [facility] Alkaline Phosphatase 55 33 - 140 U/L [facility] EX[facility] Total Protein 6.9 6.0 - 8.0 g/dL [facility] EX[facility] Albumin 4.5 3.5 - 5.0 g/dL [facility] EX[facility] Globulin 2.4 2.0 - 3.7 g/dL [facility] EX[facility] Albumin/Globulin Ratio 1.9 1.0 - 2.1 [facility] EX[facility] BUN/Creatinine Ratio 13 [facility] Plasma 05/06/2020 12:5 1 PM EST 05/06/2020 12:50 PM EST Ochoa Lockwood MD CHEMISTRY ORDERABLES Final Res ult Performing Organization Address City/[facility] Co de Phone Number [facility] EX[facility] [address] * (ABNORMAL) LIPID PROFILE (05/06/2020 12:51 PM EST) Chol/HDL Ratio 3.3 0 - 5 [facility] E XTERNAL LAB Cholesterol 164 125 - 199 mg/dL [facility] EX[facility] Comment: TOTAL CHOLESTEROL INTERPRETATION: Less than 200 mg/dL Desireable 200-239 mg/dL Borderline Greater or Equal to 240 mg/dL High LDL Calculated 76 0 - 100 mg/dL [facility] EX[facility] Comment: LDL CHOLESTEROL INTERPRETATION: Less than 100 mg/dL Optimal 100-129 mg/dL Near optimal/above optimal 130-159 mg/dL Borderline High 160-189 mg/dL High Greater or Equal to 190 mg/dL Very High HDL 50 40 - 180 mg/dL [facility] Comment: HDL CHOLESTEROL INTERPRETATION: Less than 40 mg/dL Low Greater than 60 mg/dL Desirable Triglycerides 192(H) 0 - 150 mg/dL [facility] EX[facility] Comment: TOTAL TRIGLYCERIDE INTERPRETATION: Less than 150 mg/dL Normal 150-199 mg/dL Borderline HIgh 200-499 mg/dL High Greater or Equal to 500 mg/dL Very High Plasma 05/06/2020 12:5 1 PM EST 05/06/2020 12:50 PM EST Ochoa Lockwood MD CHEMISTRY ORDERABLES Final Res ult Performing Organization Address City/State/[facility] Co de Phone Number [facility] EX[facility] [address] * MAGNESIUM (05/06/2020 12:51 PM EST) Magnesium 2.2 1.6 - 2.6 mg/dL [facility] EX[facility] Plasma 05/06/2020 12:5 1 PM EST 05/06/2020 12:50 PM EST Ochoa Lockwood MD CHEMISTRY ORDERABLES Final Res ult Performing Organization Address [facility] de Phone Number [facility] EX[facility] [address] * COVID19 PCR OP (05/06/2020 11:10 AM EST) SCRCOVID Not Detected [facility] EXT ERNAL LAB Comment: This sample has been tested with the SARS-CoV-2 ELITe MGB Assay and is pending Emergency Use Authorization (EUA) by the FDA. Approval has not yet been granted. This assay has been validated by the [facility] laboratory. This test is a qualitative assay using real time PCR technology by an automated method. Fact sheets can be found at https://www.fda.gov/MedicalDevices/Safety/EmergencySituations/qbk038436.htm Nares Swab (Nares) 05/06/2020 11:10 AM EST 05/06/2020 1:35 PM EST Ochoa Lockwood MD NON-CULTURE MICROBIOLOGY Final Result Performing Organization Address [facility] Co de Phone Number [facility] EX[facility] [address] * ECG (05/06/2020 10:38 AM EST) 05/06/2020 10:3 8 AM EST Narrative [facility] EX[facility] - 05/06/2020 7:46 PM EST [facility] Test Date: 2020-05-06 10:38:25 Pat Name: PROSPER ROLDAN [facility] Concrete Puddler: W : 1935 Requested By: OCHOA Nunes Order Number: [id number] Reading MD: Jyoti Islas MD Measurements Intervals Enterprise Rate: 62 P: 31 NM: 228 QRS: -10 QRSD: 114 T: 85 QT: 439 QTc: 446 Interpretive Statements Sinus rhythm Prolonged NM interval Inferior infarct, old Probable anteroseptal infarct, old Compared to previous EKG, the loss of R wave in V3 is new. This may be secondary t to lead placement Electronically Signed On 05-06-2020 19:46:03 EST by Jyoti Islas MD Procedure Note Jyoti Islas MD - 05/06/2020 [facility] Test Date: 2020-05-06 10:38:25 Pat Name: PROSPER ROLDAN Department: ADMTST Room: [facility] Gender: Male Concrete Puddler: [facility] : 1935 Requested By: OCHOA Nunes Order Number: [id number] Reading MD: Jyoti Marr MD Measurements Intervals Enterprise Rate: 62 P: 31 NM: 228 QRS: -10 QRSD: 114 T: 85 QT: 439 QTc: 446 Interpretive Statements Sinus rhythm Prolonged NM interval Inferior infarct, old Probable anteroseptal infarct, old Compared to previous EKG, the loss of R wave in V3 is new. This may be secondary t to lead placement Electronically Signed On 05-06-2020 19:46:03 EST by Jyoti Marr MD us Ochoa Lockwood MD ECG ORDERABLES Final Result [facility] EXTER[facility] [address] * DIAG-CHEST PA & LATERAL (05/06/2020 10:22 AM EST) Anatomical Region Laterality Modality Chest Radiographic Laila ging 05/06/2020 10:3 5 AM EST Impressions 05/06/2020 10:37 AM EST IMPRESSION: No acute pulmonary pathology Signed By: Sheree Webb MD Narrative 05/06/2020 10:37 AM EST EXAM: PA AND LATERAL CHEST X-RAY ON 05/06/2020 INDICATION: Severe aortic valve stenosis COMPARISON: None FINDINGS: LIMITATIONS: None LINES AND TUBES: None HEART / MEDIASTINUM: Heart size is normal. The trachea is midline. There is calcification aortic arch. Median sternotomy wires and surgical tracy are seen. PLEURAL SPACES: Costophrenic angles are clear. There is no pneumothorax. LUNGS: There is no acute consolidation. BONES / SOFT TISSUES: No significant abnormality. OTHER: None. Procedure Note Sheree Webb MD - 05/06/2020 EXAM: PA AND LATERAL CHEST X-RAY ON 05/06/2020 INDICATION: Severe aortic valve stenosis COMPARISON: None FINDINGS: LIMITATIONS: None LINES AND TUBES: None HEART / MEDIASTINUM: Heart size is normal. The trachea is midline. Thereis calcification aortic arch. Median sternotomy wires and surgical staplesare seen. PLEURAL SPACES: Costophrenic angles are clear. There is no pneumothorax. LUNGS: There is no acute consolidation. BONES / SOFT TISSUES: No significant abnormality. OTHER: None. IMPRESSION: No acute pulmonary pathology Signed By: Sheree Webb MD Ochoa Lockwood MD IM DIAGNOSTIC IMAGING ORDERAB LES Final Result * (ABNORMAL) ROUTINE URINE CULTURE, MIDSTREAM (05/06/2020 10:01 AM EST) Culture Result: 10,000-49,000 CFU/mL of :(H) [facility] Ampicillin/Sulbac hernandez <=8/4(S) [facility] Amoxicillin/Clavu lanic Acid <=8/4(S) [facility] Piperacillin/Tazo bactam <=16(S) [facility] Cefazolin <=2(S) [facility] Ceftriaxone <=1(S) [facility]TE [facility]L [facility] Cefepime <=2(S) [facility] Meropenem <=1(S) [facility] Levofloxacin <=2(S) [facility] EXT ERNAL [facility] Gentamicin <=4(S) [facility] EXTER NAL [facility] Nitrofurantoin <=32(S) [facility] E XTERNAL LAB Sulfa/Trimethopri m <=2/38(S) [facility] EXTERNAL [facility] Culture Result: Escherichia coli :(H) [facility] EXTER[facility] Organism 2 10,000-49,000 CFU/mL of :Enterococcus faecalis :(H) [facility] Nitrofurantoin <=32(S) [facility] E XTERNAL LAB Vancomycin 4(S) [facility] EX[facility]AL [facility] Ampicillin <=2(S) [facility] Midstream Urine (Urine) 05/06/2020 10:01 AM EST 05/06/2020 9:13 PM EST us Ochoa Lockwood MD MICROBIOLOGY - NON-BLOOD FLUID S AND OTHER Final Result [facility] EXTER[facility] [address] documented in this encounter Visit Diagnoses Diagnosis Severe aortic valve stenosis- Primary Aortic valve disorders Severe aortic valve stenosis Aortic valve disorders Severe aortic valve stenosis Aortic valve disorders documented in this encounter Care Teams Asbestos Abatement Worker Relationship Specialty Start Date End Date Man Farrell MD [address] [place] [address] PCP - General Family Medicine 05/31/21 [place], Airam Flores RN Registered Nurse Cardiology 03/20/20 Redd Naidu MD Consulting Physician Interventional Cardiology 03/20/20 Asher Whitmore MD Interventional Cardiology 03/23/20 Kary Limon NP Oncology Nurse Navigator Nurse Practitioner 03/27/20 04/05/23 Kary Melendez, CURT [address] [place] [address] Registered Nurse 06/03/20 06/28/20 Ochoa Lockwood MD [address] [place] [address] Interventional Cardiology 06/16/20 Poonam Gannon MD [address] [facility] [address] [place] [address] Endocrinology/Diabetes/ Metabolism 06/23/20 Chrissy So, CURT Registered Nurse 06/25/20 Magdalene Ibarra NP [address] [place] [address] Nurse Practitioner Nurse Practitioner, Acute Care 07/27/20 Terell Jain RN [address] [place] [address] Registered Nurse 09/23/20 Isaac Bryan MD [address] [place] [address] Cardiology 12/29/20 Artem Elizabeth MD [address] [place] [address] Interventional Cardiology 05/31/21 Camilo Parada MD [address] [facility] [address] [place] [address] Cardiology 07/25/21 Addis Walton PA [address] [place] [address] Cardiology 11/23/21 documented as of this encounter
--- OUTSIDE RECORDS SUMMARY | 2024-12-19 10:11 | XMS_ITS | Encounter Summary ---
Author Organization [facility] Address [address] [place] [address] Care Team Providers Care Supervisor Parking Lot Name Role Phone Airam Horne RN Unavailable [phone] Redd Naidu MD Unavailable Unavailable Asher Whitmore MD Unavailable Unavailable Kary Limon NP Unavailable UnavailOchoa Maharaj MD Unavailable Unavailable Poonam Gannon MD Unavailable [phone] Chrissy So RN Unavailable Unavailab Magdalene Pinzon NP Unavailable [phone] Terell Jain RN Unavailable Isaac Bryan MD Unavailable [phone] Artem Elizabeth MD Unavailable [phone] Man Farrell MD Primary Care Provider [phone] Camilo Parada MD Unavailable [phone] Addis Walton Unavailable [phone] Encounter Details Date Type Department Care Team (Late st Contact Info) Description 10/13/2021 Mobile Encounter [facility] Physicians - Heart & Vascular, [facility] [address] [place] [address] Artem Elizabeth MD [address] [facility] [place] [address] Social History Tobacco Use Types Packs/Day Years Used Date Smoking Tobacco: Former Cigarettes 1 108 - 4327 Smokeless Tobacco: Never Alcohol Use Standard Drinks/Week [...] suspected to have Coronavirus/COVID-19? No / Unsure 09/27/2021 10:24 AM EDT documented as of this encounter Functional [...] Selam Tapia RN documented in this encounter Progress Notes * Artem Elizabeth MD - 10/13/2021 10:33 PM EDT Attached media from the original note were not included. See attached note The scheduling questions have already been answered by staff On one hand, the procedural risk can be known as an estimae as we discussed at 5-7%. The chance forbypass graft closure and its effects unfortunately are not predictable. Half of vein bypass grafts may close at 10 years, especially if they are diseased as yours is. On the other hand, your graft has not worsened in the two years between your angiograms, which was a pleasant if inexplicable surprise. Regarding review, my partner and I who specialize in these procedures review the complex cases and perform the more complex procedures together. We had already discussed your case before you and I meet last. If you decide to proceed it will be performed by me with my partner Dr. Wallace. documented in this encounter Plan of Treatment Upcoming Encounters Date Type Department Care Team (Late st Contact Info) Description 01/13/2025 10:15 AM EDT Appointment [facility] Physicians - Heart & Vascular, [facility] [address] [facility] [place] [id number] Artem Elizabeth MD [address] [place] [address] 04/04/2025 10:00 AM EST Appointment [facility] - Diabetes & Endocrine Center, [address] [place] [address] Poonam Gannon MD [address] [facility] [address] [place], [place] [id number] documented as of this encounter Goals Goal Patient Goal Type Associated Problems Recent Progress Patient-Stated? Author Increase physical activity Lifestyle No Clari Baird, BS MEd documented as of this encounter Visit Diagnoses Not on filedocumented in this encounter Care Teams Supervisor Parking Lot Relationship Specialty Start Date End Date Man Farrell MD [address] [place] [address] PCP - General Family Medicine 05/31/21 Airam Horne RN Registered Nurse Cardiology 03/20/20 Redd Naidu MD Consulting Physician Interventional Cardiology 03/20/20 Asher Whitmore MD Interventional Cardiology 03/23/20 Kary Limon NP Oncology Nurse Navigator Nurse Practitioner 03/27/20 04/05/23 Ochoa Lockwood MD Interventional Cardiology 06/16/20 Poonam Gannon MD [address] [facility] [address] [place] [address] Endocrinology/Diabetes/ Metabolism 06/23/20 Chrissy So, CURT Registered Nurse 06/25/20 Magdalene Ibarra NP [address] [place] [place] [address] Nurse Practitioner Nurse Practitioner, Acute Care 07/27/20 Terell Jain, CURT [address] [place] [address] Registered Nurse 09/23/20 Isaac Bryan MD [address] [place] [address] Cardiology 12/29/20 Artem Elizabeth MD [address] [place] [address] Interventional Cardiology 05/31/21 Camilo Parada MD [address] [facility] [address] [place], [place] [id number] Cardiology 07/25/21 Addis Walton PA [address] [place] [address] Cardiology 11/23/21 documented as of this encounter
--- OUTSIDE RECORDS SUMMARY | 2024-12-19 10:11 | XMS_ITS | Encounter Summary ---
Author Organization [facility] Address [address] [place] [address] Care Team Providers Care Staff Technologist Name Role Phone Airam Horne RN Unavailable [phone] Redd Naidu MD Unavailable Unavailable Asher Whitmore MD Unavailable Unavailable Kary Limon NP Unavailable UnavailKary Monet RN Unavailable [phone] Ochoa Lockwood MD Unavailable Unavailable Poonam Gannon MD Unavailable [phone] Chrissy So RN Unavailable Unavailab Magdalene Pinzon NP Unavailable [phone] Terell Jain RN Unavailable Isaac Bryan MD Unavailable [phone] Artem Elizabeth MD Unavailable [phone] Man Farrell MD Primary Care Provider [phone] Camilo Parada MD Unavailable [phone] Addis Walton Unavailable [phone] Reason for Visit * Reason Onset Date Comments Other 02/27/2020 CATH FILM Encounter Details Date Type Department Care Team (Late st Contact Info) Description 02/27/2020 Telephone [facility] Physicians - Heart & Vascular, [facility] [address] [place] [address] Asher Whitmore MD Other (CATH FILM) Social History Tobacco Use Types Packs/Day Years [...] or suspected to have Coronavirus / COVID-19? No / Unsure 02/28/2020 7:49 AM EST documented as of this encounter Miscellaneous Notes * Telephone Encounter - Diego Roman - 02/27/2020 10:32 AM EST Spoke with Ed from [employer]; stated films taken down to send out with [employer] for Overnight shipping; asked when that will be picked up- he stated at 11:00 is the usual pick-up time documented in this encounter Plan of Treatment Upcoming Encounters Date Type Department Care Team (Late st Contact Info) Description 01/13/2025 10:15 AM EDT Appointment [facility] Physicians - Heart & Vascular, [facility] [address] [place] [id number] Artem Elizabeth MD [address] [facility] [place], [place] [address] 04/04/2025 10:00 AM EST Appointment [facility] - Diabetes & Endocrine Center, [place] [address] [facility] [address] [facility] [place] [address] Poonam Gannon MD [address] [facility] [address] [place], [place] [address] documented as of this encounter Visit Diagnoses Not on filedocumented in this encounter Care Teams Staff Technologist Relationship Specialty Start Date End Date Man Farrell MD [address] [place] [address] PCP - General Family Medicine 05/31/21 Airam Horne RN Registered Nurse Cardiology 03/20/20 Redd Naidu MD Consulting Physician Interventional Cardiology 03/20/20 Asher Whitmore MD Interventional Cardiology 03/23/20 Kary Limon NP Oncology Nurse Navigator Nurse Practitioner 03/27/20 04/05/23 Kary Melendez RN [address] [place] [address] Registered Nurse 06/03/20 06/28/20 Ochoa Lockwood MD [address] [place] [address] Interventional Cardiology 06/16/20 Poonam Gannon MD [address] [place] [address] Endocrinology/Diabetes/ Metabolism 06/23/20 Chrissy So RN Registered Nurse 06/25/20 Magdalene Ibarra NP [address] [place] [address] Nurse Practitioner Nurse Practitioner, Acute Care 07/27/20 Terell Jain, CURT [address] [place] [address] Registered Nurse 09/23/20 Isaac Bryan MD [address] [place] [address] Cardiology 12/29/20 Artem Elizabeth MD [address] [place] [address] Interventional Cardiology 05/31/21 Camilo Parada MD [address] [facility] [address] [place] [address] Cardiology 07/25/21 Addis Walton PA [address] [facility]. [address] [place] [address] Cardiology 11/23/21 documented as of this encounter
--- OUTSIDE RECORDS SUMMARY | 2024-12-19 10:11 | XMS_ITS | Encounter Summary ---
Author Organization Healthcare Address [address] [place] [address] Care Team Providers Care Critical Care Unit Manager Name Role Phone Man Farrell MD Primary Care Provider [phone] Reason for Visit * Reason Comments Med Refill Encounter Details Date Type Department Care Team (Late Contact Info) Description 10/28/2020 Refill [facility] [address] [place] [address] Natalia Donald MD [address] [address] Social History Tobacco Use Types Packs/Day Years Used Date Smoking Tobacco: Former Sex and Gender Information Value Date Recorded Sex Assigned at Not on file Legal Sex Male 6:35 PM EDT Gender Identity Not on file Sexual Orientation Choose not to disclose 2022 10:36 AM EST documented as of this encounter Plan of Treatment Upcoming Encounters Date Type Department Care Team (Late Contact Info) Description 06/27/2025 10:40 AM EST Office Visit [facility] [address] [place] [address] Isrrael Peng MD [address] [place] [address] documented as of this encounter Visit Diagnoses Not on filedocumented in this encounter Care Teams Critical Care Unit Manager Relationship Specialty Start Date End Date Man Farrell MD [address] [facility] [address] [place] [address] PCP - General 09/04/20 documented as of this encounter
--- OUTSIDE RECORDS SUMMARY | 2024-12-19 10:11 | XMS_ITS | Encounter Summary ---
Author Organization [employer] ([place], [place], [place], [place]) Address [address] [place] [address] Care Team Providers Care Research Development Manager Name Role Phone Unavailable Primary Care Provider Unavailabl e Encounter Details Date Type Department Care Team (Late st Contact Info) Description 09/27/2018 Transcribed Document [facility] [place] [address] [place] [address] ProviderDakotah MD [address] [place], [place] [id number] Social History Tobacco Use Types Packs/Day Years Used Date Smoking Tobacco: Never Assessed Sex and Gender Information Value Date Recorded Sex Assigned at Not on file Legal Sex Male 6:48 PM CDT Gender Identity Not on file Sexual Orientation Not on file documented as of this encounter Miscellaneous Notes * Cerner Conversion Note - Dakotah ProviderMD - 09/27/2018 9:52 AM CDT Final Discharge Planning Entered On: 09/27/2018 9:53 EDT Performed On: 09/27/2018 9:52 EDT by RUTHANN ALAMO, Movement Therapist-Yarn Finisher Final Discharge Planning Discharge Arrangements : Patient Post-Acute Information Patient Name: [facility]: [id number] Gender: Male : 36 Age: 83 Years No Post-Acute Placement(s) Listed No Post-Acute Service(s) Listed No [place] Referral(s) Listed Transportation Needs : Family/Friend Is Patient Ready for Discharge? : Yes Discharge To Care Management : Home/Residential/Residential or Self Care -01 RUTHANN ALAMO Movement Therapist-Yarn Finisher - 09/27/2018 9:52 EDT Final Narrative Note Final Narrative Note : Patient does not have a readmission score. He denied having any CM needs. Patient's daughter will transport home. RUTHANN ALAMO, Movement Therapist-Yarn Finisher - 09/27/2018 9:52 EDT Electronically signed by Robby Tran Conversion Assistant Professor Of Geography Cerner at 08/07/2022 11:25 PM CDT documented in this encounter Plan of Treatment Not on file documented as of this encounter Visit Diagnoses Not on filedocumented in this encounter
--- OUTSIDE RECORDS SUMMARY | 2024-12-19 10:11 | XMS_ITS | Encounter Summary ---
Author Organization [employer] ([place], [place], [place], [place]) Address [address] [place] [address] Care Team Providers Care Legal Executive Assistant Name Role Phone Unavailable Primary Care Provider Unavailabl e Encounter Details Date Type Department Care Team (Late st Contact Info) Description 09/27/2018 Transcribed Document [facility] Family Medicine [address] [place] [address] ProviderDakotah MD [address] [place], [place] [id number] Social History Tobacco Use Types Packs/Day Years Used Date Smoking Tobacco: Never Assessed Sex and Gender Information Value Date Recorded Sex Assigned at Not on file Legal Sex Male 6:48 PM CDT Gender Identity Not on file Sexual Orientation Not on file documented as of this encounter Miscellaneous Notes * Cerner Conversion Note - Historical ProviderMD - 09/27/2018 11:12 AM CDT Nursing Discharge Summary Entered On: 09/27/2018 11:13 EDT Performed On: 09/27/2018 11:12 EDT by Man Aguiar, Sap Solution Manager Consultant Documentation Discharge Date/Time : 09/27/2018 11:12 EDT Patient Disposition, General : Discharge Discharge To : Home with ambulatory/outpatient follow-up Mode Of Departure, General Discharge : Private vehicle Accompanied By, Discharge : Daughter IV Discontinued : Yes Medications Given to Patient : No Personal Belongings With Patient : Yes Pt's Own Supply of Medications Returned : No Prescriptions Given to Patient : Electronically sent Discharge Instructions Reviewed With, Opportunity For Questions Given : Patient Patient Education Completed : Yes Teaching Method : Explanation, Printed materials Teaching Evaluation : Verbalizes understanding Man Aguiar, Rn - 09/27/2018 11:12 EDT Electronically signed by Chelsea [facility] Conversion Pharmacognosy Teacher Cerner at 08/07/2022 11:28 PM CDT documented in this encounter Plan of Treatment Not on file documented as of this encounter Visit Diagnoses Not on filedocumented in this encounter
--- OUTSIDE RECORDS SUMMARY | 2024-12-19 10:11 | XMS_ITS | Clinical Summary ---
Author Organization [facility] Address [address] [place] [address] Phone Care Team Providers Care Salesforce Specialist Name Role Phone Man Farrell MD Primary Care Provider [phone] Allergies Active Allergy Reactions Criticality Noted Date Comments William Inhibitors Other (See Comments) 06/13/2001 COUGHING Medications ranolazine (RANEXA) 500 mg Oral Tablet Sustained Release 12 hr Take 500 mg by mouth every 12 hours. Active atenolol (TENORMIN) 25 mg Oral Tablet Take by mouth daily. Active glimepiride (AMARYL) 2 mg Oral Tablet Take by mouth daily (with breakfast). Active insulin glargine,hum.rec. anlog (LANTUS SOLOSTAR U-100 INSULIN SUBQ) Subcutaneous (Inject under the skin). Active isosorbide mononitrate (IMDUR) 60 mg Oral Tablet Sustained Release 24 hr Take 60 mg by mouth daily. Active lisinopril (PRINIVIL;ZESTRIL ) 2.5 mg Oral Tablet Take by mouth daily. Active SITagliptin phosphate (JANUVIA) 50 mg Oral Tablet Take 10 mg by mouth daily. Active temazepam (RESTORIL) 30 mg Oral Capsule Take by mouth nightly as needed for Sleep. Active nitroGLYCERIN (NITROSTAT) 0.4 mg SL Tablet, Sublingual Place under the tongue every 5 minutes as needed for Chest pain. Active carvediloL (COREG) 12.5 mg Oral Tablet Take 12.5 mg by mouth 2 times daily as needed. 08/26/19 Active Coenzyme Q10 10 mg Oral Capsule Co Q-10 100mg 1 QD Active multivit with minerals/lutein (MULTIVITAMIN 50 PLUS ORAL) Take 1 Tablet by mouth daily. 01/06/20 16 Active valACYclovir (VALTREX) 500 mg Oral Tablet Take 500 mg by mouth daily. Active alogliptin 6.25 mg Oral Tablet 09/08/19 Active tamsulosin (FLOMAX) 0.4 mg Oral Capsule 11/08/19 Active Insulin [place], Disposable, 32 gauge x Misc Needle Active Bifidobacterium infantis (ALIGN ORAL) Take 1 Tablet by mouth daily. Active aspirin 81 mg Oral Tablet, Delayed Release (E.C.) Take 81 mg by mouth daily. 05/14/19 Active atorvastatin (LIPITOR) 40 mg Oral Tablet 80 mg. 12/16/19 Active calcium polycarbophiL (FIBERCON) 625 mg Oral Tablet Take 1 Tablet by mouth every morning. 09/17/19 06 Active cholecalciferol, vitamin D3, 25 mcg (1,000 unit) Oral Tablet Take 1 Tablet by mouth daily. 04/15/20 Active docusate sodium (COLACE) 100 mg Oral Capsule 01/06/20 16 Active ezetimibe (ZETIA) 10 mg Oral Tablet Take 10 mg by mouth daily. 12/30/19 21 Active ferrous sulfate 325 mg (65 mg iron) Oral Tablet 04/15/20 Active folic acid (FOLVITE) 1 mg Oral Tablet Take 1 Tablet by mouth daily. 03/09/20 07 Active linaCLOtide (LINZESS) 145 mcg Oral Capsule 02/26/20 Active niacin 750 mg Oral Tablet Sustained Release Take 1 Tablet by mouth nightly. 03/31/20 Active oxyCODONE-acetami nophen (PERCOCET) 5-325 mg Oral Tablet Take 1 Tablet by mouth nightly. 12/19/19 Active prasugreL (EFFIENT) 5 mg Oral Tablet 09/08/19 Active prednisoLONE acetate (PRED FORTE) 1 % Opht Drops, Suspension Twice a week Active isosorbide mononitrate (IMDUR) 120 mg Oral Tablet Sustained Release 24 hr Take 120 mg by mouth daily. 08/14/19 Active Ranolazine 1,000 mg Oral Tablet Sustained Release 12 hr daily. Active metoprolol (LOPRESSOR) 50 mg Oral Tablet Take 50 mg by mouth. 08/13/19 22 Active Blood-Glucose Meter Misc Misc 07/09/19 22 Active ACCU-CHEK GUIDE TEST STRIPS Misc Strip 11/07/19 22 Active MITIGARE 0.6 mg Oral Capsule 10/14/19 22 Active doxycycline hyclate (VIBRA-TABS) 100 mg Oral Tablet 10/14/19 22 Active plecanatide 3 mg Oral Tablet 3 mg. 02/05/20 22 Active LAGEVRIO, EUA, 200 mg Oral capsule 03/23/20 22 Active dulaglutide (TRULICITY) 0.75 mg/0.5 mL SubQ Pen Injector INJECT 0.75MG (0.5ML) UNDER THE SKIN EVERY WEEK FOR BLOOD SUGAR 05/02/19 23 Active insulin glargine-yfgn 100 unit/mL (3 mL) SubQ Insulin Pen 09/08/19 23 Active JARDIANCE 10 mg Oral Tablet Take 10 mg by mouth daily. 05/27/19 23 Active FARXIGA 10 mg Oral Tablet Take 10 mg by mouth daily. 05/20/19 23 Active clopidogreL (PLAVIX) 75 mg Oral Tablet Take 75 mg by mouth daily. 11/03/19 23 Active glimepiride (AMARYL) 1 mg Oral Tablet 1 mg. 09/23/19 23 Active metoprolol (LOPRESSOR) 25 mg Oral Tablet Take 12.5 mg by mouth 2 times daily. 10/28/19 23 Active amoxicillin (AMOXIL) 500 mg Oral Capsule TAKE 4 CAPSULES BY MOUTH 1 HOUR PRIOR TO DENTAL APPOINTMENT. 11/18/19 23 Active DROPSAFE ALCOHOL PREP PADS Top Pads, Medicated 01/28/20 23 Active apixaban (ELIQUIS) 2.5 mg Oral Tablet Take 2.5 mg by mouth. 06/05/19 24 Active citalopram (CELEXA) 10 mg Oral Tablet Take 10 mg by mouth daily. 09/26/19 24 Active torsemide (DEMADEX) 10 mg Oral Tablet Take 10 mg by mouth as needed for Other (as needed). 08/01/19 24 Active polyethylene glycol (GLYCOLAX) 17 gram/dose Oral Powder Daily 01/23/20 24 Active fluorouraciL (EFUDEX) 5 % Top CreamIndications: AK (actinic keratosis) Apply a thin layer to left ear BID x 2 weeks. Avoid eyes. Wash hands after 40 g 02/01/20 24 Active Active Problems No known active problems Encounters Date Type Department Care Team Description 09/25/2024 10:15 AM EDT Office Visit Adri [facility] [address] [place] [address] Rudy Jorgensen, ZAYDA Onychomycosis (Primary Dx); Perionychia of toe, unspecified laterality; Bilateral foot pain; Type II diabetes mellitus, well controlled (HCC) from Last 3 Months Surgical History Surgery Date Site/Laterality Comments TONSILLECTOMY AND ADENOIDECTOMY CARDIAC SURGERY 3 stents CORONARY ARTERY BYPASS GRAFT 04/24/1998 - 05/24/1998 QUADRACEPS TENDON REPAIR 01/23/2018 Right RIGHT KNEE QUADRICEP TENDON REPAIR ; Surgeon: Ernique Ray MD; Location: [facility] MAIN OR; Service: Orthopedics Medical devices from this surgery are in the Medical Devices section. ORTHOPEDIC SURGERY Right knee tendon repair 12/23/2017 Medical History Medical History Date Comments OR (myocardial infarction) (HCC) Angina pectoris Hypertension Hyperlipidemia Diabetes mellitus (HCC) Kidney stones Sleep apnea Heart murmur CAD (coronary artery disease) Arthritis hands Constipation Cancer (HCC) squamous and bas al Social History Tobacco Use Types Packs/Day Years Used Date Smoking Tobacco: Former Smokeless Tobacco: Never Tobacco Cessation:Counseling Given: Not Answered Comments:quit when 33 years old Alcohol Use Standard Drinks/Week Comments Yes 7 (1 standard drink = 0.6 oz pur e alcohol) Sex and Gender Information Value Date Recorded Sex Assigned at Not on file Legal Sex Male 1:14 PM EDT Gender Identity Not on file Sexual Orientation Not on file Obstetrics History Last Filed Vital Signs Vital Sign Reading Time Taken Comments Blood Pressure 123/75 08/08/2024 10:08 PM EDT Pulse 64 08/08/2024 8:47 PM EDT Temperature 36.8 C (98.3 F) 08/08/2024 10:41 PM EDT Respiratory Rate 23 08/08/2024 8:47 PM EDT Oxygen Saturation 99% 08/08/2024 8:47 PM EDT Inhaled Oxygen Concentration - - Weight 71.4 kg (157 lb 6.4 oz) 09/25/2024 10:15 AM EDT Height 175.3 cm (5' 9 ) 09/25/2024 10:15 AM EDT Body Mass Index 23.24 09/25/2024 10:15 AM EDT Plan of Treatment Upcoming Encounters Date Type Department Care Team (Late st Contact Info) Description 01/01/2025 10:15 AM EDT Office Visit [facility] [address] [place] [address] Rudy Jorgensen, ZAYDA [address] [place] [address] 02/12/2025 10:30 AM EDT Office Visit [facility] [address] [facility] [address] [place] [address] Parris Gómez MD [address] [facility] [address] [place] [address] Health Maintenance Due Date Last Done Comments Wellness Exam Medicare 01/21/1938 Hepatitis B Vaccine (3 of 3 - 19+ 3-dose series) 08/18/2014 03/17/2014, 02/17/2014 Influenza Vaccine (#1) 2024 , 02/21/2023, 12/15/2021, Additional history exists DTaP/TDaP/Td (2 - Td or Tdap) 04/15/2030 04/15/2020, 11/27/2007 Pneumococcal Vaccine 50+ Completed 017, 01/31/2016, 03/08/2001 Zoster Completed 04/03/2019, 02/22, 09/06/2010 RSV or 60+ Completed 03/07/2023 COVID-19 Vaccine Completed 09/20/2024, , 02/21/2023, Additional history exists Meningococcal B Vaccine Aged Out No l onger eligible based on patient's age to complete this topic Medical Devices Implanted Type Area Company Truck Driver Device Identifier Shelf Expiration Date Model / Serial / Lot Repair Implant System Internal Brace Knee Ligament Augment - [id number] Implanted:Qty: 1 on 01/23/2018 by Enrique Ray MD at [facility] Right: Knee AR[employer]X 09/22/2019 [id number] / / [id number] Insurance [employer] MEDICARE PPO MR A MEDICARE PPO MR [employer] MEDICARE PPO MR [facility] MEDICARE PPO MR Care Teams Salesforce Specialist Relationship Specialty Start Date End Date Man Farrell MD [address] [facility] [address] [place] [address] PCP - General Family Medicine 01/22/18
--- OUTSIDE RECORDS SUMMARY | 2024-12-19 10:11 | XMS_ITS | Encounter Summary ---
Author Organization Healthcare Address [address] [place] [address] Care Team Providers Care Financial Wellness Coach Name Role Phone Man Farrell MD Primary Care Provider [phone] Reason for Visit * Reason Comments Med Refill Encounter Details Date Type Department Care Team (Late Contact Info) Description 04/03/2021 Refill [facility] [address] [place] [address] Natalia Donald MD [address] [place] [phone] Social History Tobacco Use Types Packs/Day Years Used Date Smoking Tobacco: Former Smokeless Tobacco: Never Sex and Gender Information Value Date Recorded Sex Assigned at Not on file Legal Sex Male 6:35 PM EDT Gender Identity Not on file Sexual Orientation Choose not to disclose 2022 10:36 AM EST COVID-19 Exposure Response Date Recorded In the last month, have you been in contact with someone who was confirmed or suspected to have Coronavirus / COVID-19? No / Unsure 03/29/2021 3:39 PM EST documented as of this encounter Plan of Treatment Upcoming Encounters Date Type Department Care Team (Late Contact Info) Description 06/27/2025 10:40 AM EST Office Visit [facility] [address] [place] [address] Isrrael Peng MD [address] [place] [phone] documented as of this encounter Visit Diagnoses Not on filedocumented in this encounter Care Teams Financial Wellness Coach Relationship Specialty Start Date End Date Man Farrell MD [address] [place] [address] PCP - General 09/04/20 documented as of this encounter
--- OUTSIDE RECORDS SUMMARY | 2024-12-19 10:11 | XMS_ITS | Encounter Summary ---
Author Organization [employer] ([place], [place], [place], [place]) Address [address] [place] [address] Care Team Providers Care Vp Cardiovascular Service Line Name Role Phone Unavailable Primary Care Provider Unavailabl e Encounter Details Date Type Department Care Team (Late st Contact Info) Description 09/27/2018 Transcribed Document [facility] Family Medicine [address] [place] [address] ProviderDakotah MD [address] [place] [address] Social History Tobacco Use Types Packs/Day Years Used Date Smoking Tobacco: Never Assessed Sex and Gender Information Value Date Recorded Sex Assigned at Not on file Legal Sex Male 6:48 PM CDT Gender Identity Not on file Sexual Orientation Not on file documented as of this encounter Miscellaneous Notes * Cerner Conversion Note - Dakotah Higgins MD - 09/27/2018 9:40 AM CDT Patient Education Materials Follows: Carotid Angioplasty With Stent, Care After These instructions give you information about caring for yourself after your procedure. Your doctor may also give you more specific instructions. Call your doctor if you have any problems or questions after your procedure. Follow these instructions at home: Medicines ??? Take jpwi-fto-sutbivd and prescription medicines only as told by your doctor. ??? If you were prescribed an antibiotic medicine, take it as told by your doctor. Do not stop taking the antibiotic even if you start to feel better. Caring for Your Cut from Surgery ??? Keep your cut clean and dry. ??? Follow instructions from your doctor about how to take care of your cut from surgery (incision). Make sure you: ? Wash your hands with soap and water before you change your bandage (dressing). If you cannot use soap and water, use hand knockout man. ? Change your bandage as told by your doctor. ? Leave stitches (sutures), skin glue, or skin tape (adhesive) strips in place. They may need to stay in place for 2 weeks or longer. If tape strips get loose and curl up, you may trim the loose edges. Do not remove tape strips completely unless your doctor says it is okay. ??? Check the area around your cut every day for signs of infection. Check for: ? More redness, swelling, or pain. ? More fluid or blood. ? Warmth. ? Pus or a bad smell. Activity ??? Return to your normal activities as told by your doctor. Ask your doctor what activities are safe for you. ??? Do not lift anything that is heavier than 10 lb (4.5 kg) until your doctor says it is okay. ??? Avoid sexual activity until your doctor says that this is safe for you. ??? Exercise regularly, as told by your doctor. Ask your doctor what types of exercise are safe for you. Eating and drinking ??? Follow instructions from your doctor about what you cannot eat or drink. ??? Drink enough fluid to keep your pee (urine) clear or pale yellow. ??? Eat a heart-healthy diet. This should include lots of fresh fruits and vegetables. Meat should be lean cuts. Avoid foods that are: ? High in salt, saturated fat, or sugar. ? Canned or highly processed. ? Fried. Lifestyle ??? Limit alcohol intake to no more than 1 drink per day for non women and 2 drinks per day for men. One drink equals 12 oz of beer, 5 oz of wine, or 1? oz of hard liquor. ??? Do not use any tobacco products, such as cigarettes, chewing tobacco, or e-cigarettes. If you need help quitting, ask your doctor. ??? Work with your doctor to keep your blood pressure under control. ??? Stay at a healthy weight. General instructions ??? Do not drive or use heavy machinery while taking prescription pain medicine. ??? Do not take baths, swim, or use a hot tub until your doctor approves. ??? Tell all doctors who care for you that you have a stent. ??? Keep all follow-up visits as told by your doctor. This is important. Contact a doctor if: ??? You have more redness, swelling, or pain around your cut. ??? You have more fluid or blood coming from your cut. ??? The area around your cut feels warm to the touch. ??? You have pus or a bad smell coming from your cut. ??? You have a lump caused by bleeding under your skin (hematoma), and the lump does not go away after 2 weeks. ??? You have a fever. Get help right away if: ??? You have vision changes or loss of vision. ??? You have numbness or weakness on one side of your body. ??? You have trouble talking. ??? You have slurred speech or you cannot speak (aphasia). ??? You suddenly feel very confused. ??? You notice a lump caused by bleeding under your skin and the lump is quickly getting larger (expanding). ??? You suddenly get pain in the area where your stent was placed. ??? Your cut from surgery starts to bleed and does not stop after you hold pressure on it for 30 minutes. These symptoms may be an emergency. Do not wait to see if the symptoms will go away. Get help right away. Call your local emergency services (911 in [place] Do not drive yourself to the hospital. This information is not intended to replace advice given to you by your health care provider. Make sure you discuss any questions you have with your health care provider. Document Released: 04/15/2014 Document Revised: 09/15/2016 Document Reviewed: 01/03/2016 Elsevier Interactive Patient Education ? 2019 [employer] documented in this encounter Plan of Treatment Not on file documented as of this encounter Visit Diagnoses Not on filedocumented in this encounter
--- OUTSIDE RECORDS SUMMARY | 2024-12-19 10:11 | XMS_ITS | Clinical Summary ---
Author Organization Healthcare Address [address] [place] [address] Care Team Providers Care Electrical Wiring Lineman Name Role Phone Man Farrell MD Primary Care Provider [phone] Allergies Active Allergy Reactions Criticality Noted Date Comments William Inhibitors Other - please docum ent in the comment field Low 06/13/2001 COUGHING Medications Calcium Polycarbophil (FIBER LAXATIVE PO) 7 Active FOLIC ACID PO 9 Active alogliptin (Nesina) 12.5 MG tablet 9 Active cholecalciferol (Vitamin D-3) 25 MCG (1000 UT) capsule TAKE 1 CAPSULE Daily 9 Active coenzyme Q-10 100 MG capsule 7 Active ezetimibe (Zetia) 10 MG tablet 1 Active ferrous sulfate 325 (65 Fe) MG tablet TAKE 1 TABLET 3 TIMES WEEK WITH FOOD. 9 Active insulin glargine (Lantus SoloStar) 100 UNIT/ML injection pen 8 Active loteprednol (Inveltys) 1 % ophthalmic suspension 9 Active niacin (Niaspan) 750 MG ER tablet 7 Active nitroglycerin (Nitrostat) 0.4 MG SL tablet 7 Active oxyCODONE-acetamin ophen (Percocet) 5-325 MG tablet TAKE ONE TABLET BY MOUTH 3 TIMES DAILY NEEDED 0 Active ranolazine (Ranexa) 1000 MG 12 hr tablet TAKE 1 TABLET EVERY 12 HOURS. 9 Active temazepam (Restoril) 30 MG capsule Take 1 capsule (30 mg) by mouth every night. 1 Active citalopram (CeleXA) 10 MG tablet Take 1 tablet (10 mg) by mouth 1 (one) time each day. 3 Active clopidogrel (Plavix) 75 MG tablet Take 1 tablet (75 mg) by mouth 1 (one) time each day. 3 Active imiquimod (Aldara) 5 % cream APPLY EVERY OTHER DAY FOR 6 WEEKS 3 Active metoprolol tartrate (Lopressor) 25 MG tablet Take 0.5 tablets (12.5 mg) by mouth 2 (two) times a day. 3 Active prednisoLONE acetate (Pred-Forte) 1 % ophthalmic suspension 3 Active tamsulosin (Flomax) 0.4 MG 24 hr capsuleIndications :Benign prostatic hyperplasia with urinary hesitancy Take 1 capsule (0.4 mg) by mouth every other day. 90 capsule 3 5 Active Active Problems Problem Noted Date Diagnosed Date Hypertensive chronic kidney disease with stage 1 through stage 4 chronic kidney disease, or unspecified chronic kidney disease 06/14/2024 BPH (benign prostatic hyperplasia) 03/28/2019 CKD (chronic kidney disease) stage 3, GFR 30-59 ml/min 03/29/2017 Mild vitamin D deficiency 03/29/2017 Proteinuria 03/29/2017 Diabetes mellitus, type 2 02/16/2017 Essential hypertension 02/16/2017 Immunizations Immunization Administration Dates Next Due Hep B, adult 03/17/2014,02/17/2014 Influenza, Unspecified 02/03/2021,2019,12/23/2018,01/19,01/25/2017,12/29/2014,01/07/2014 ,01/23/2013,01/28/2012,02/07/2011,04/2009,02/22/2009,02/19/2008, 7,02/28/2006,02/22/2005,02/24/2004,04/2001,02/22/2001 Influenza, high-dose, quadrivalent 02/21,12/15/2021,02/03/2021,09/29 /2017 Moderna Covid-19 Vaccine 12y +, Tripp Protein, Preservative free 02/21/2023 Pneumococcal Conjugate PCV 13 01/31/2016 Pneumococcal Polysaccharide PPV23 05/17/2016, Pneumococcal, Unspecified 02/22/2001 Rsvpref, Recombinant, Protei n Subunit, Adjuvent 03/07/2023 Td (adult), unspecified 11/27/2007 Tdap 04/15/2020 Tetanus Toxoid, Unspecified 04/24/1998 Zoster, Recombinant 04/03/2019,03/07/2018 Zoster, live 09/06/2010 Family History Medical History Relation Name Comments Diabetes type II Father Prostate cancer Father Bone cancer Mother Relation Name Status Comments Father Mother Social History Tobacco Use Types Packs/Day Years Used Date Smoking Tobacco: Former Passive Smoke Exposure: Past Smokeless Tobacco: Never Tobacco Cessation:Counseling Given: Not Answered Sex and Gender Information Value Date Recorded Sex Assigned at Not on file Legal Sex Male 6:35 PM EDT Gender Identity Not on file Sexual Orientation Choose not to disclose 2022 10:36 AM EST Last Filed Vital Signs Vital Sign Reading Time Taken Comments Blood Pressure 97/58 06/14/2024 11:36 AM EST Pulse 72 06/14/2024 11:36 AM EST Temperature 36.3 C (97.4 F) 06/14/2024 11:36 AM EST Respiratory Rate 18 06/14/2024 11:36 AM EST Oxygen Saturation 95% 06/14/2024 11:36 AM EST Inhaled Oxygen Concentration - - Weight 76.2 kg (168 lb) 06/14/2024 11:36 AM EST Height 170.2 cm (5' 7 ) 06/14/2024 11:36 AM EST Body Mass Index 26.31 06/14/2024 11:36 AM EST Plan of Treatment Upcoming Encounters Date Type Department Care Team (Late st Contact Info) Description 06/27/2025 10:40 AM EST Office Visit [facility] [address] [place] [phone] Isrrael Peng MD [address] [place] [phone] Health Maintenance Due Date Last Done Comments [facility]-Depression Screening 1936 [facility]-Diabetes: Hemoglobin A1C 1936 [facility]-Medicare Annual Wellness (AWV) 1935 [facility]-Infant/Child/Adol SDOH Screenings 1935 Diabetes: Dental Exam 01/21/1946 [facility]- SDOH Screenings 01/21/1954 [facility]-Adult SDOH Screenings 01/21/1954 [id number] Vaccine ( season) 2024 03/07/2024, 02/21/2023, 02/14/2022, Additional history exists [facility]-Influenza Vaccine (#1) 12/23/202401/30, 01/25/2024, 02/21/2023, Additional history exists [facility]-DTaP,Tdap,and Td Vaccines (2 - Td or Tdap) 04/15/2030 04/15/2020, 11/27/2007 [facility]-Pneumococcal Vaccine: 50+ Years Completed 05/17/2016, 01/31/2016, 03/08/2001, Additional history exists [facility]-Zoster Vaccines Completed 04/03/2019, 03/07/2018, 09/06/2010 [facility]-RSV Vaccine: 60+ Years or Completed 03/07/2023 [facility]-Obesity Intervention Completed 06/14/2024, 07/2023 HPV Vaccines Aged Out No longer eligi ble based on patient's age to complete this topic [facility]-HIB Vaccines Aged Out No longer e ligible based on patient's age to complete this topic [facility]-Hepatitis A Vaccines Aged Out No longer eligible based on patient's age to complete this topic [facility]-IPV Vaccines Aged Out No longer e ligible based on patient's age to complete this topic [facility]-Rotavirus Vaccines Aged Out No lo nger eligible based on patient's age to complete this topic Insurance [facility] MEDICARE Care Teams Electrical Wiring Lineman Relationship Specialty Start Date End Date Mna Farrell MD [address] [place] [address] PCP - General 09/04/20
--- OUTSIDE RECORDS SUMMARY | 2024-12-19 10:11 | XMS_ITS | Encounter Summary ---
Author Organization [facility] Address [address] [place] [address] Care Team Providers Care Wrinkle Chaser Name Role Phone Airam Horne RN Unavailable [phone] Redd Naidu MD Unavailable Unavailable Asher Whitmore MD Unavailable Unavailable Ochoa Lockwood MD Unavailable Unavailable Poonam Gannon MD Unavailable [phone] Chrissy So RN Unavailable Unavailab Magdalene Pinzon NP Unavailable [phone] Terell Jain RN Unavailable Isaac Bryan MD Unavailable [phone] Artem Elizabeth MD Unavailable [phone] Man Farrell MD Primary Care Provider [phone] Camilo Parada MD Unavailable [phone] Addis Walton Unavailable [phone] Encounter Details Date Type Department Care Team (Late st Contact Info) Description 10/09/2024 Results Follow-Up [facility] Physicians - Heart & Vascular, [facility] [address] [facility] [address] [place] [address] Yeni Day, RN [address] [place] [address] VASCI-CAROTID DUPLEX COMP DAVID, 2D ECHO COMPLETE W/STRAIN/3D PRN CONTR/BUBBLE Social History Tobacco Use Types Packs/Day Years Used Date Smoking Tobacco: Former Cigarettes 1 956 - 1850 Smokeless Tobacco: Never Alcohol Use Standard Drinks/Week [...] Entry Date Author No 07/25/2021 2:09 PM SHAVONNET Selam Tapia RN documented in this encounter Progress Notes * Artem Elizabeth MD - 10/16/2024 7:53 AM EDT 10/10/2024: Echo: LVEF 60-65%, 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 Continue medical therapy documented in this encounter Plan of Treatment Upcoming Encounters Date Type Department Care Team (Late st Contact Info) Description 01/13/2025 10:15 AM EDT Appointment [facility] Physicians - Heart & Vascular, [facility] [address] [facility] [place] [address] [place] [phone] Artem Elizabeth MD [address] [facility] [place], [place] [phone] 04/04/2025 10:00 AM EST Appointment [facility] - [facility], [place] [address] [facility] [address] [place] [address] Poonam Gannon MD [address] [facility] [address] [place], [place] [id number] documented as of this encounter Goals Goal Patient Goal Type Associated Problems Recent Progress Patient-Stated? Author Increase physical activity Lifestyle No Clari Baird BS MEd documented as of this encounter Visit Diagnoses Not on filedocumented in this encounter Care Teams Wrinkle Chaser Relationship Specialty Start Date End Date Man Farrell MD [address] [place] [address] PCP - General Family Medicine 05/31/21 [place], Airam Flores RN Registered Nurse Cardiology 03/20/20 Redd Naidu MD Consulting Physician Interventional Cardiology 03/20/20 Asher Whitmore MD Interventional Cardiology 03/23/20 Ochoa Lockwood MD Interventional Cardiology 06/16/20 Poonam Gannon MD [address] [facility] [address] [place] [address] Endocrinology/Diabetes/M etabolism 06/23/20 Chrissy So, CURT Registered Nurse 06/25/20 Magdalene Ibarra NP [address] [place] [address] Nurse Practitioner Nurse Practitioner, Acute Care 07/27/20 Terell Jain RN [address] [place] [address] Registered Nurse 09/23/20 Isaac Bryan MD [address] [place] [address] Cardiology 12/29/20 Artem Elizabeth MD [address] [place] [address] Interventional Cardiology 05/31/21 Camilo Parada MD [address] [facility] [address] [place] [address] Cardiology 07/25/21 Addis Walton PA [address] [place] [address] Cardiology 11/23/21 documented as of this encounter
--- OUTSIDE RECORDS SUMMARY | 2024-12-19 10:11 | XMS_ITS | Clinical Summary ---
Author Organization [facility] Address [address] [place] [address] Care Team Providers Care Plant Health Care Technician Name Role Phone Unavailable Primary Care Provider Unavailabl e Source Comments This information has been disclosed to you from confidential records protectedfrom disclosure by state law. You shall make no further disclosure of thisinformation without the specific, written, and informed release of theindividual to whom it pertains, or as otherwise permitted by law. A generalauthorization for the release of medical or other information is not sufficientfor the purposes of therelease of HIV test results or diagnoses. [id number] Social History Tobacco Use Types Packs/Day Years Used Date Smoking Tobacco: Never Assessed Sex and Gender Information Value Date Recorded Sex Assigned at Not on file Legal Sex Male 4:18 PM EST Gender Identity Not on file Sexual Orientation Not on file Plan of Treatment Not on file Insurance [employer] P[employer] MEDICARE
--- OUTSIDE RECORDS SUMMARY | 2024-12-19 10:11 | XMS_ITS | Encounter Summary ---
Author Organization [employer] ([place], [place], [place], [place]) Address [address] [place] [address] Care Team Providers Care Deicer Repairer Electric Name Role Phone Unavailable Primary Care Provider Unavailabl e Encounter Details Date Type Department Care Team (Late st Contact Info) Description 03/12/2019 Transcribed Document [facility] [place] [place] Family Medicine [address] [place] [address] ProviderDakotah MD [address] [place] [address] Social History Tobacco Use Types Packs/Day Years Used Date Smoking Tobacco: Never Assessed Sex and Gender Information Value Date Recorded Sex Assigned at Not on file Legal Sex Male 6:48 PM CDT Gender Identity Not on file Sexual Orientation Not on file documented as of this encounter Miscellaneous Notes * Cerner Conversion Note - Dakotah Higgins MD - 03/12/2019 1:45 PM STATEMENT CLERK Patient Education Materials Follows: Moderate Conscious Sedation, Adult, Care After These [...] you are awake and alert. ??? Take [id number]-[id number] and prescription medicines only as told by [...] 01/29/2014 Document Revised: 09/12/2016 Document Reviewed: 07/30/2016 [employer]out Interactive Patient Education ? 2019 [employer] Heart-Healthy Eating Plan Heart-healthy meal planning includes: [...] plate with vegetables and green salads. Eat 4?5 servings of vegetables per day. A serving of vegetables is: ? 1 cup of raw leafy vegetables. ? ? cup of raw or cooked cut-up vegetables. ? ? cup of vegetable juice. ??? Fill one fourth of your plate with whole grains. Look for the word whole as the first word in the ingredient list. ??? Fill one fourth of your plate with lean protein foods. ??? Eat 4?5 servings of fruit per day. A serving of fruit is: ? One medium whole fruit. ? ? cup of dried fruit. ? ? cup of fresh, frozen, or canned fruit. ? ? cup of 100% fruit juice. ??? Eat more foods that contain soluble fiber. These include apples, broccoli, carrots, beans, peas, and barley. Try to get 20?30 g of fiber per day. ??? Eat [...] weight if you are overweight. ??? Eat 4?5 servings of nuts, legumes, and seeds per week: ? One serving of dried beans or legumes equals ? cup after being cooked. ? One serving of nuts equals 1? ounces. ? One serving of seeds equals ? ounce or one tablespoon. ??? You may need to keep track of how much salt or sodium you eat. This is especially true if you have high blood pressure. Talk with your doctor or dietitian to get more information. What foods can I eat? Grains Breads, including Lao, white, musa, wheat, raisin, rye, oatmeal, and Bengali. Tortillas that are neither fried nor made with lard or trans fat. Low-fat rolls, including hotdog and hamburger buns and Italian muffins. Biscuits. Muffins. Waffles. Pancakes. Light popcorn. Whole-grain cereals. Flatbread. [place] toast. Pretzels. Breadsticks. Rusks. Low-fat snacks. Low-fat crackers, including oyster, saltine, matzo, cristian, animal, and rye. Rice and pasta, including brown rice and pastas that are made with whole wheat. Vegetables All vegetables. Fruits All fruits, but limit coconut. Meats and Other Protein Sources Lean, well-trimmed beef, veal, pork, and huirton. Chicken and turkey without skin. All fish [...] cooking, baking, salads, and as spreads. Other [place] powder. Coffee and tea. All seasonings and [...] cottage cheese. Whole-milk cheeses, including blue (laney), Gem Jermaine, Brie, Prabhakar, Tajik, Havarti, Ecuadorean, cheddar, Camembert, and [place]. Whole or 2% milk that is liquid, [...] that has suet, meat fat, or shortening. Centerview butter, hydrogenated oils, palm oil, coconut oil, [...] 10/09/2012 Document Revised: 09/15/2016 Document Reviewed: 10/02/2014 [employer] Interactive Patient Education ? 2019 [employer]. Groin Site Care Refer to this sheet [...] questions after your procedure. HOME CARE INSTRUCTIONS ? You may shower 24 hours after the procedure. Remove the bandage (dressing ) and gently wash the site with plain soap and water. Gently pat the site dry. ? Do not apply powder or lotion to the site. ? Do not sit in a bathtub, swimming pool, or whirlpool for 5 to 7 days. ? No bending, squatting, or lifting anything over 10 pounds (4.5 kg) as directed by your caregiver. ? Inspect the site at least twice daily. ? Do not drive home if you are discharged the same day of the procedure. Have someone else drive you. ? You may drive 24 hours after the procedure unless otherwise instructed by your caregiver. What to expect: ? Any bruising will usually fade within 1 to 2 weeks. ? Blood that collects in the tissue (hematoma ) may be painful to the touch. It should usually decrease in size and tenderness within 1 to 2 weeks. SEEK IMMEDIATE MEDICAL CARE IF: ? You have unusual pain at the groin site or down the affected leg. ? You have redness, warmth, swelling, or pain at the groin site. ? You have drainage (other than a small amount of blood on the dressing). ? You have chills. ? You have a fever or persistent symptoms for more than 72 hours. ? You have a fever and your symptoms suddenly get worse. ? Your leg becomes pale, cool, tingly, or numb. ? You have heavy bleeding from the site. Hold pressure on the site. Document Released: 05/13/2011 Document Revised: 07/02/2012 Document Reviewed: 05/13/2011 ExitCare? Patient Information ?2013 [employer]. Angiogram, Care After This sheet gives you [...] and water are not available, use hand senior network systems engineer. ? Change your dressing as told by [...] care provider approves. ??? You may shower 24?48 hours after the procedure or as told [...] by your health care provider, usually for 1?2 days. ??? Do not lift anything that [...] contrast dye from your body. ??? Take uqab-zic-ivtumzs and prescription medicines only as told by [...] Call your local emergency services (911 in the [place] Do not drive yourself [...] okay to do so. You may shower 24?48 hours after the procedure or as told [...] 10/27/2005 Document Revised: 03/15/2017 Document Reviewed: 03/15/2017 [employer] Interactive Patient Education ? 2019 [employer] documented in this encounter Plan of Treatment Not on file documented as of this encounter Visit Diagnoses Not on filedocumented in this encounter
--- OUTSIDE RECORDS SUMMARY | 2024-12-19 10:11 | XMS_ITS | Clinical Summary ---
Author Organization [facility] Address [address] [place] [address], [address] [place] [address] Care Team Providers Care Corporate Driver Name Role Phone Unavailable Primary Care Provider Unavailabl e Allergies No known active allergies Social History Tobacco Use Types Packs/Day Years Used Date Smoking Tobacco: Former Smokeless Tobacco: Never Alcohol Use Standard Drinks/Week Comments Yes 0 (1 standard drink = 0.6 oz pur e alcohol) Sex and Gender Information Value Date Recorded Sex Assigned at Not on file Legal Sex Male 9:08 AM EDT Gender Identity Not on file Sexual Orientation Not on file Last Filed Vital Signs Vital Sign Reading Time Taken Comments Blood Pressure 121/65 07/25/2021 1:01 PM EDT Pulse 68 07/25/2021 1:01 PM EDT Temperature 36.6 C (97.8 F) 07/25/2021 9:17 AM EDT Respiratory Rate 10 07/25/2021 1:01 PM EDT Oxygen Saturation 96% 07/25/2021 9:37 AM EDT Inhaled Oxygen Concentration - - Weight 84.8 kg (187 lb) 07/25/2021 9:17 AM EDT Height 175.3 cm (5' 9 ) 07/25/2021 9:17 AM EDT Body Mass Index 27.62 07/25/2021 9:17 AM EDT Plan of Treatment Not on file Insurance [employer] MEDICARE
--- OUTSIDE RECORDS SUMMARY | 2024-12-19 10:11 | XMS_ITS | Encounter Summary ---
Author Organization [facility] Address [address] [place] [address] Care Team Providers Care Marine Service Station Attendant Name Role Phone Airam Horne RN Unavailable [phone] Redd Naidu MD Unavailable Unavailable Asher Whitmore MD Unavailable Unavailable Kary Limon NP Unavailable UnavailOchoa Maharaj MD Unavailable Unavailable Poonam Gannon MD Unavailable [phone] Chrissy So RN Unavailable Unavailab Magdalene Pinzon NP Unavailable +- [phone] Terell Jain RN Unavailable Isaac Bryan MD Unavailable Artem Elizabeth MD Unavailable [phone] Man Farrell MD Primary Care Provider [phone] Camilo Parada MD Unavailable [phone] Addis Walton Unavailable [phone] Encounter Details Date Type Department Care Team (Late st Contact Info) Description 09/23/2020 Telephone [facility] Physicians - [place] [facility], [facility] [address] [facility] [place] [address] Terell Jain, RN [address] [place] [address] Social History Tobacco Use Types Packs/Day Years Used Date Smoking Tobacco: Former Cigarettes 1 698 - 0152 Smokeless Tobacco: Never Alcohol Use Standard Drinks/Week [...] encounter Miscellaneous Notes * Telephone Encounter - Terell Jain RN - 09/23/2020 11:05 AM EDTSummary: Carvedilol refill ([facility]) [facility] called and needs prescription faxed for Carvedilol 25 mg. Fax number is [phone] phone number is [phone] documented in this encounter Plan of Treatment Upcoming Encounters Date Type Department Care Team (Late st Contact Info) Description 01/13/2025 10:15 AM EDT Appointment [facility] Physicians - Heart & Vascular, [place] [address] [facility] [place] [address] Artem Elizabeth MD [address] [facility] [address] [place], [place] [address] 04/04/2025 10:00 AM EST Appointment [facility] - Diabetes & Endocrine Center, [place] [address] [place] [address] [address] [place] [address] Poonam Gannon MD [address] [facility] [address] [place], [place] [id number] documented as of this encounter Goals Goal Patient Goal Type Associated Problems Recent Progress Patient-Stated? Author Increase physical activity Lifestyle No Clari Baird BS MEd documented as of this encounter Visit Diagnoses Not on filedocumented in this encounter Care Teams Marine Service Station Attendant Relationship Specialty Start Date End Date Man Farrell MD [address] [place] [address] [place] [address] PCP - General Family Medicine 05/31/21 Airam Horne RN Registered Nurse Cardiology 03/20/20 Redd Naidu MD Consulting Physician Interventional Cardiology 03/20/20 Asher Whitmore MD Interventional Cardiology 03/23/20 Kary Limon NP Oncology Nurse Navigator Nurse Practitioner 03/27/20 04/05/23 Ochoa Lockwood MD Interventional Cardiology 06/16/20 Poonam Gannon MD [address] [place] [address] Endocrinology/Diabetes/ Metabolism 06/23/20 Chrissy So RN Registered Nurse 06/25/20 Magdalene Ibarra NP [address] Quality [place] [address] Nurse Practitioner Nurse Practitioner, Acute Care 07/27/20 Terell Jain, CURT [address] [place] [address] Registered Nurse 09/23/20 Isaac Bryan MD [address] [place] [address] Cardiology 12/29/20 Artem Elizabeth MD [address] [place] [address] Interventional Cardiology 05/31/21 Camilo Parada MD [address] [facility] [address] [place], [place] [id number] Cardiology 07/25/21 [place] [address] [place] [address] [address] [place] [address] Cardiology 11/23/21 documented as of this encounter
--- OUTSIDE RECORDS SUMMARY | 2024-12-19 10:11 | XMS_ITS | Encounter Summary ---
Author Organization [facility] Address [address] [place] [address] Care Team Providers Care Pastry Chef Name Role Phone Airam Horne RN Unavailable [phone] Redd Naidu MD Unavailable Unavailable Asher Whitmore MD Unavailable Unavailable Kary Limon NP Unavailable UnavailOchoa Maharaj MD Unavailable Unavailable Poonam Gannon MD Unavailable [phone] Chrissy So RN Unavailable Unavailab Magdalene Pinzon NP Unavailable +- [phone] Terell Jain RN Unavailable Isaac Bryan MD Unavailable [phone] Artem Elizabeth MD Unavailable [phone] Man Farrell MD Primary Care Provider [phone] Camilo Parada MD Unavailable +[phone] Addis Walton Unavailable [phone] Reason for Visit * Reason Onset Date Comments Other 05/13/2021 Med refills Encounter Details Date Type Department Care Team (Late st Contact Info) Description 05/13/2021 Telephone [facility] Diabetes & Endocrine Center, [place] [address] [facility] [address] [place] [address] Poonam Gannon MD [address] [facility] [address] [place], [place] [id number] Other (Med refills ) Social History Tobacco Use Types Packs/Day Years Used Date Smoking Tobacco: Former Cigarettes 1 863 - 8745 Smokeless Tobacco: Never Alcohol Use Standard Drinks/Week [...] encounter Miscellaneous Notes * Telephone Encounter - Poonam Gannon MD - 05/13/2021 1:45 PM EST Ok to change to glimepiride 1 mg tabs, I sent this to [facility] as well * Telephone Encounter - Kim Chowdhury - 05/13/2021 1:14 PM EST Pt called asking for 6 boxes of Accu Chek Guide strips to be called in to [facility]. Pt said the directions need to say use 3 times a day. Pt is breaking his Glimepiride in half right now. He said it is not always even and wants to know if Dr. Gannon can send in a 1mg Glimepiride pill for him. Please let pt know how to proceed. documented in this encounter Plan of Treatment Upcoming Encounters Date Type Department Care Team (Late st Contact Info) Description 01/13/2025 10:15 AM EDT Appointment [facility] Physicians - Heart & Vascular, [facility] [address] [place] [phone] Artem Elizabeth MD [address] [place] [address] 04/04/2025 10:00 AM EST Appointment [facility] - Diabetes & Endocrine Center, [place] [address] [facility] [address] [place] [address] Poonam Gannon MD [address] [place] [address] documented as of this encounter Goals Goal Patient Goal Type Associated Problems Recent Progress Patient-Stated? Author Increase physical activity Lifestyle Clari Welsh, BS MEd documented as of this encounter Visit Diagnoses Diagnosis Type 2 diabetes mellitus without complication, with long-term current use of insulin ([facility])- Primary documented in this encounter Care Teams Pastry Chef Relationship Specialty Start Date End Date Man Farrell MD [address] [place] [address] [place] [id number] PCP - General Family Medicine 05/31/21 Beeson, Airam Flores RN Registered Nurse Cardiology 03/20/20 Redd Naidu MD Consulting Physician Interventional Cardiology 03/20/20 Asher Whitmore MD Interventional Cardiology 03/23/20 Kary Limon NP Oncology Nurse Navigator Nurse Practitioner 03/27/20 04/05/23 Ochoa Lockwood MD Interventional Cardiology 06/16/20 Poonam Gannon MD [address] [place] [address] Endocrinology/Diabetes/ Metabolism 06/23/20 Chrissy So RN Registered Nurse 06/25/20 Magdalene Ibarra NP [address] [facility] [place] [address] Nurse Practitioner Nurse Practitioner, Acute Care 07/27/20 Terell Jain, RN [address] [place] [address] Registered Nurse 09/23/20 Isaac Bryan MD [address] [facility] [address] [place] [address] Cardiology 12/29/20 Artem Elizabeth MD [address] [facility] [place] [address] Interventional Cardiology 05/31/21 Camilo Parada MD [address] [facility] [address] [place], [place] [phone] Cardiology 07/25/21 Addis Walton PA [address] [place] [address]. [address] [place] [address] Cardiology 11/23/21 documented as of this encounter
--- OUTSIDE RECORDS SUMMARY | 2024-12-19 10:11 | XMS_ITS | Encounter Summary ---
Author Organization [facility] Address [address] [place] [address] Care Team Providers Care Anglesmith Name Role Phone Airam Horne RN Unavailable [phone] Redd Naidu MD Unavailable Unavailable Asher Whitmore MD Unavailable Unavailable Kary Limon NP Unavailable UnavailKary Monet RN Unavailable +-[phone] Ochoa Lockwood MD Unavailable Unavailable Poonam Gannon MD Unavailable [phone] Chrissy So RN Unavailable Unavailab Magdalene Pinzon NP Unavailable + [phone] Terell Jain RN Unavailable + Isaac Bryan MD Unavailable [phone] Artem Elizabeth MD Unavailable [phone] Man Farrell MD Primary Care Provider [phone] Camilo Parada MD Unavailable [phone] Addis Walton Unavailable [phone] Encounter Details Date Type Department Care Team (Late st Contact Info) Description 03/31/2020 Telephone [facility] Physicians - Heart & Vascular, [place] [address] [facility] [place] [address] Carolina Lawson [address] [place], [place] [phone] Social History Tobacco Use Types Packs/Day Years [...] ES T documented as of this encounter Miscellaneous Notes * Telephone Encounter - Carolina Lawson - 03/31/2020 1:43 PM EST Left vm regarding apt documented in this encounter Plan of Treatment Upcoming Encounters Date Type Department Care Team (Late st Contact Info) Description 01/13/2025 10:15 AM EDT Appointment [facility] Physicians - Heart & Vascular, [place] [address] [facility] [place] [address] Artem Elizabeth MD [address] [facility] [place], [place] [address] 04/04/2025 10:00 AM EST Appointment [facility] - Diabetes & Endocrine Center, [address] [place] [address] Poonam Gannon MD [address] [facility] [address] [place], [place] [address] documented as of this encounter Visit Diagnoses Not on filedocumented in this encounter Care Teams Anglesmith Relationship Specialty Start Date End Date Man Farrell MD [address] [place] [address] PCP - General Family Medicine 05/31/21 Airam Horne RN Registered Nurse Cardiology 03/20/20 Redd Naidu MD Consulting Physician Interventional Cardiology 03/20/20 Asher Whitmore MD Interventional Cardiology 03/23/20 Kary Limon NP Oncology Nurse Navigator Nurse Practitioner 03/27/20 04/05/23 Kary Melendez RN [address] [place] [address] Registered Nurse 06/03/20 06/28/20 Ochoa Lockwood MD [address] [place] [address] Interventional Cardiology 06/16/20 Poonam Gannon MD [address] [place] [address] Endocrinology/Diabetes/ Metabolism 06/23/20 Chrissy So RN Registered Nurse 06/25/20 Magdalene Ibarra NP [address] [place] [address] Nurse Practitioner Nurse Practitioner, Acute Care 07/27/20 Terell Jain, RN [address] [place] [address] Registered Nurse 09/23/20 Isaac Bryan MD [address] [place] [address] Cardiology 12/29/20 Artem Elziabeth MD [address] [place] [address] Interventional Cardiology 05/31/21 Camilo Parada MD [address] [facility] [address] [place] [address] Cardiology 07/25/21 Addis Walton PA [facility] [facility] [address] [place], [place] [address] Cardiology 11/23/21 documented as of this encounter
--- OUTSIDE RECORDS SUMMARY | 2024-12-19 10:11 | XMS_ITS | Clinical Summary ---
Author Organization [employer] ([place], [place], [place], [place]) Address [address] [place] [address] Care Team Providers Care Jewelry Estimator Name Role Phone Unavailable Primary Care Provider [...]
--- OUTSIDE RECORDS SUMMARY | 2024-12-19 10:13 | XMS_ITS | Encounter Summary ---
Author Organization [employer] ([place], [place], [place], [place]) Address [address] [place] [address] Care Team Providers Care Aircraft Motor Mechanic Name Role Phone Unavailable Primary Care Provider Unavailabl e Encounter Details Date Type Department Care Team (Late st Contact Info) Description 09/27/2018 Transcribed Document [facility] [place] Family Medicine [address] [place] [address] ProviderDakotah MD [address] [place] [address] Social History Tobacco Use Types Packs/Day Years Used Date Smoking Tobacco: Never Assessed Sex and Gender Information Value Date Recorded Sex Assigned at Not on file Legal Sex Male 6:48 PM CDT Gender Identity Not on file Sexual Orientation Not on file documented as of this encounter Miscellaneous Notes * Cerner Conversion Note - Dakotah ProviderMD - 09/27/2018 8:38 AM CDT Patient: PROSPER KIM Age: 83 years Sex: Male : 1935 Associated Diagnoses: None Author: ANGEL LANCE APRN [facility] CARDIOLOGY PROGRESS NOTE: DIAGNOSIS: 1. CAD SUBJECTIVE: no complaints Vitals Signs (last 24 hrs) Last Charted Minimum Maximum Temp 97.2 (SEP 27 06:54) 97.2 (SEP 27 06:54) 97.3 (SEP 26 12:45) Mon HR 65 (SEP 27 06:54) 58 (SEP 26 11:15) 68 (SEP 26 18:07) Resp Rate 18 (SEP 27 06:54) 16 (SEP 26 12:45) 18 (SEP 27 06:54) SBP 120 (SEP 27 06:54) 112 (SEP 27 04:00) H 149 (SEP 26 18:07) DBP 72 (SEP 27 06:54) 64 (SEP 26 11:45) 84 (SEP 26 22:00) MAP 85 (SEP 27 06:54) 76 (SEP 27 04:00) 103 (SEP 26 11:15) SpO2 97 (SEP 27 06:54) L 93 (SEP 26 15:00) 99 (SEP 26 11:30) Clinical Weight CLINICALWEIGHT: 85 kg (09/26/18 12:45:00) [place] Body Weight: 70 kg (09/26/18 12:45:00) Intake & Output Totals Last 24 Hours (7a-7a) Intake (10 Events) Continuous Infusions (875 mL) Oral Intake (840 mL) Output (3 Events) Urine Voided (Volume) (1825 mL) Input Total: 1715 mL Output Total: 1825 mL Balance: -110 mL TELE: NSR 65 Blood Gases (Current Encounter/Past 24 Hours) No Blood Gas Results Found (Past 24 Hours) Labs (Last four charted values) Plt 173 (SEP 26) Na 141 (SEP 27) K 4.1 (SEP 27) Cl 111 (SEP 27) CO2 25 (SEP 27) BUN 21 (SEP 27) Cr H 1.40 (SEP 27) Glu R H 120 (SEP 27) Ca 8.8 (SEP 27) EXAM: Alert & Oriented, No apparent distress. HEAD&NECK: No JVD, No carotid bruit CORONARY: RRR, S1/S2, No murmurs LUNGS: CTA/B, No rhonchi, No wheeze ABDOMEN: Soft, Non-tender, Positive Bowel sounds EXTREMITIES: No edema, No cyanosis, Pedal pulses palpable, right femoral no hematoma IMPRESSION/PLAN: 1. CAD 09/26/2018 [facility] DAPT- prasugrel, aspirin continue statin s/p CABG 1990, multiple stents 2. Aortic valve disease-moderate 3. HTN 4. HLP 5. DM II Discharge home BMP on Monday Follow Sunny one month Dictation #[id number] documented in this encounter Plan of Treatment Not on file documented as of this encounter Visit Diagnoses Not on filedocumented in this encounter
--- OUTSIDE RECORDS SUMMARY | 2024-12-19 10:13 | XMS_ITS | Encounter Summary ---
Author Organization [employer] ([place], [place], [place], [place]) Address [address] [place] [address] Care Team Providers Care Defense Travel Administrator Name Role Phone Unavailable Primary Care Provider Unavailabl e Encounter Details Date Type Department Care Team (Late st Contact Info) Description 09/26/[address] [facility] [place] [address] [place] [address] ProviderDakotah MD [address] [place], [place] [id number] Social History Tobacco Use Types Packs/Day Years Used Date Smoking Tobacco: Never Assessed Sex and Gender Information Value Date Recorded Sex Assigned at Not on file Legal Sex Male 6:48 PM CDT Gender Identity Not on file Sexual Orientation Not on file documented as of this encounter Miscellaneous Notes * Cerner Conversion Note - Historical ProviderMD - 09/26/2018 12:45 PM CDT Admission History, Adult Entered On: 09/26/2018 13:04 EDT Performed On: 09/26/2018 12:45 EDT by Gudelia Chandra RN Advance Directive Patient has Advance Directive *Q : Yes, Advance Directive not with the patient Advance Directive Type : CPR directive, Living will, Medical durable power of crm system administrator (proxy) Copy Advance Directive Verified/on Chart : No Gudelia Chandra RN - 09/26/2018 13:02 EDT Anesthesia/Transfusion History Family History of Anesthesia Reaction : No prior transfusion(s) Transfusion History : Prior anesthesia without reaction Family History of Anesthesia Reaction : None Gudelia Chandra RN - 09/26/2018 13:02 EDT Functional Assessment Living Situation : Home Patient Lives With : Spouse JOSÉ MIGUEL Hx Falls Immediate/Within 3 Months : No Current Home Treatments : Blood glucose monitoring, CPAP Gudelia Chandra RN - 09/26/2018 13:02 EDT General Info Arrived From : Other: [facility] Mode of Arrival on Unit : Stretcher Patient Arrival Date/Time : 09/26/2018 12:45 EDT Legal Guardian : Unaccompanied Support Person/Pt Rep Name : Leslie Chang daughter Support Person/Pt Rep Contact Information : [phone] Want Family/Rep/Phys Notified of Admit : No Emergency Contact #1 : Leslie Chang Emergency Contact #1 Emergency Contact #1 Relationship : daughter Emergency Contact #2 : Renea Zarate Emergency Contact #2 Emergency Contact #2 Relationship : daughter Information Obtained From : Patient Primary Language : Iranian Preferred Communication Mode : Verbal Communication Barrier : None Gudelia Chandra RN - 09/26/2018 13:02 EDT Fall Risk Scales ABCs Fall Injury Risk Identification : Coagulation ABC Fall Injury Risk : Moderate to high injury risk Injury Moderate to High Risk Interventions : Transport methods appropriate to patient VALDEZ Hx Falls Immediate/Within 3 Months : No Valdez Secondary Diagnosis : Yes VALDEZ Use of Ambulatory Aid : Bed rest/Nurse assist VALDEZ IV Therapy or IV Access : Yes Valdez Gait/Transferring : Normal, bedrest, immobile Valdez Mental Status : Oriented to own ability Valdez Fall Risk Score : 35 VALDEZ Fall Scale Risk Level : 25-45 Medium Risk [place] Fall Interventions : Adequate lighting, Bed in low position, Call device within reach, Hourly comfort/safety rounds, Non-slip footwear, Personal items within reach, Upper side-rails up, Wheels locked, Wires/Cords secured Fall Moderate to High Risk Interventions : Transport methods appropriate to patient Learning Style Preferences Patient : Verbal explanation Fall Risk Scale Calc Temp : 0 Gudelia Chandra RN - 09/26/2018 13:02 EDT Health Histories Smoking Status : Former smoker, quit more than 30 days ago Smokeless Tobacco Status : Never Gudelia Chandra RN - 09/26/2018 13:02 EDT Social History (As Of: 09/26/2018 13:04:30 EDT) Tobacco: Use in Last 12 Months: No. Years of Use: 10. Last Used: Quit 40 years ago. (Last Updated: 02/04/2015 09:11:09 EDT by TOM POLANCO RN) Alcohol: Alcohol Use History Yes. Alcohol Use Frequency Socially. (Last Updated: 02/04/2015 09:11:25 EDT by TOM POLANCO RN) Substance Abuse: Drug Use Hx: No. (Last Updated: 09/26/2018 07:27:16 EDT by ANGEL PITTMAN RN) Height and Weight, Clinical Dosing Height Source : Stated Height Entry Format : [place] Height, Feet : 5 ft(Converted to: 152 cm, 60 Inch) Height, Inches : 9 Inch(Converted to: 0 ft 9 Inch, 22.86 cm) Clinical Height : 175.26 cm Weight Source : Standing scale Weight Entry Format : [place] Clinical Dosing Weight : 85 kg Weight, Pounds : 187 lb Body Surface Area (BSA) : 2.01 m2 Body Mass Index : 27.7 kg/m2 (HI) [place] Body Weight : 70 kg Gudelia Chandra RN - 09/26/2018 13:02 EDT Infectious Disease History Infectious Disease History : Chicken pox/Shingles, Measles, Mumps Fever/Chills Last 48 Hours : No Travel To Regions with Travel Advisories : No Travel Outside [place] Within Last 30 Days : No Contact With Traveler to Advisory Region : No Tuberculosis Symptoms : None Gudelia Chandra RN - 09/26/2018 13:02 EDT Influenza Vaccine Asmt, Adult Previous Vaccines from Immunization Schedule : No qualifying data available. Influenza Immunization, Current Season : Outside of influenza season Gudelia Chandra RN - 09/26/2018 13:02 EDT Pneumococcal Vaccine Previous Vaccines from Immunization Schedule : No qualifying data available. Pneumonia Immunization Received : Yes Gudelia Chandra RN - 09/26/2018 13:02 EDT Order Details Transport Mode Order Detail : Stretcher/Gurney Isolation Precautions Order Detail : Standard Precautions Order Detail : N/A IV Order Detail : 1 Oxygen Order Detail : 0 Nurse Collect Order Detail : 0 Lift/Transfer : Minimal Central Line Order Detail : No Room Service : Appropriate Arterial Line : No Gudelia Chandra RN - 09/26/2018 13:02 EDT Nutrition History Eating Poorly Due to Decreased Appetite : No Unplanned Weight Loss in Past 3-6 Months : No Malnutrition Screening Tool Total(mal) : 0 Malnutrition Screening Tool Risk Level : Patient not at risk Gudelia Chadnra RN - 09/26/2018 13:02 EDT Psychosocial History Currently in Unsafe Situation : No Tried to Harm Yourself in the Past? : No Thoughts of Harming/Killing Yourself : No Gudelia Chandra RN - 09/26/2018 13:02 EDT Sleep Apnea Risk Assmt BiPAP/CPAP Ordered for Home Use : Yes Hx of Obstructive Sleep Apnea Diagnosis : Yes BiPAP/CPAP Used at Home : Yes Age over 50 Years Old : Yes Gender Male : Yes Gudelia Chandra RN - 09/26/2018 13:02 EDT Spiritual/Cultural Needs Any Spiritual/Cultural Needs or Requests : No Gudelia Chandra RN - 09/26/2018 13:02 EDT Valuables and Belongings Valuables and Belongings : Clothing, Jewelry, Personal items Clothing : Common streetwear Clothing Disposition : With family, Declines to send to security/safe Jewelry : Ring-plain band Jewelry Disposition : With patient, Declines to send to security/safe Personal Items : Wallet Personal Items Disposition : With family, Declines to send to security/safe Gudelia Chandra RN - 09/26/2018 13:02 EDT documented in this encounter Plan of Treatment Not on file documented as of this encounter Visit Diagnoses Not on filedocumented in this encounter
--- OUTSIDE RECORDS SUMMARY | 2024-12-19 10:13 | XMS_ITS | Encounter Summary ---
Author Organization [employer] ([place], [place], [place], [place]) Address [address] [place] [address] Care Team Providers Care Wildlife Forensic Geneticist Name Role Phone Unavailable Primary Care Provider Unavailabl e Encounter Details Date Type Department Care Team (Late st Contact Info) Description 09/26/2018 Transcribed Document [facility] [place] [facility] [place] [address] ProviderDakotah MD [address] [place] [address] Social History Tobacco Use Types Packs/Day Years Used Date Smoking Tobacco: Never Assessed Sex and Gender Information Value Date Recorded Sex Assigned at Not on file Legal Sex Male 6:48 PM CDT Gender Identity Not on file Sexual Orientation Not on file documented as of this encounter Miscellaneous Notes * Cerner Conversion Note - Dakotah Higgins MD - 09/26/2018 11:55 AM CDT Patient: PROSPER ROLDAN Age: 83 years Sex: Male : 1935 Associated Diagnoses: None Author: ERICKA SHORE MD-CAR CARDIOLOGY NOTE: Cardiac catheterization studies revealed severe three-vessel coronary artery disease. Left internal mammary graft remained widely patent. The main circumflex which had previously received a stent likewise was widely patent. His catheterization showed severe deterioration of the vein graft insertion site to the marginal branch of the circumflex associated with a 90% or greater in-stent restenosis. This was successfully treated with balloon angioplasty. Additionally, his right coronary saphenous vein graft showed severe deterioration with diffuse stenosis as much as 95% narrowing at the worst sites. This vein graft was also repaired with extensive angioplasty and stent therapy with good results. He has been followed for aortic stenosis which was moderate by echo. I reassessed the gradient across his aortic valve and found it to be 20???30 mmHg and recommended continued observation and medical management. He will be discharged on prasugrel 10 mg along with his aspirin and atorvastatin. He will return to see me for follow-up in one month. I've also asked that he have his renal function rechecked in the next few days in light of his contrast exposure. Prescriptions for prasugrel sent to [facility] for long-term and 30 days to local pharmacy. Prescription was sent through [facility]. documented in this encounter Plan of Treatment Not on file documented as of this encounter Visit Diagnoses Not on filedocumented in this encounter
--- OUTSIDE RECORDS SUMMARY | 2024-12-19 10:13 | XMS_ITS | Encounter Summary ---
Author Organization [employer] ([place], [place], [place], [place]) Address [address] [place] [address] Care Team Providers Care Private Investigator Name Role Phone Unavailable Primary Care Provider Unavailabl e Encounter Details Date Type Department Care Team (Late st Contact Info) Description 09/27/2018 Transcribed Document [facility] [place] Family Medicine [address] [place] [address] ProviderDakotah MD [address] [place], [place] [id number] Social History Tobacco Use Types Packs/Day Years Used Date Smoking Tobacco: Never Assessed Sex and Gender Information Value Date Recorded Sex Assigned at Not on file Legal Sex Male 6:48 PM CDT Gender Identity Not on file Sexual Orientation Not on file documented as of this encounter Miscellaneous Notes * Cerner Conversion Note - Historical ProviderMD - 09/27/2018 9:35 AM CDT Stroke/Warfarin Instructions Entered On: 09/27/2018 9:35 EDT Performed On: 09/27/2018 9:35 EDT by Man Aguiar Rn Stroke/Warfarin Instructions Stroke/TIA Discharge Ins : N/A Warfarin Discharge Ins : N/A Man Aguiar Rn - 09/27/2018 9:35 EDT Electronically signed by Robby Tran Conversion Soft Work Cigar Machine Operator Cerner at 08/07/2022 11:13 PM CDT documented in this encounter Plan of Treatment Not on file documented as of this encounter Visit Diagnoses Not on filedocumented in this encounter
--- OUTSIDE RECORDS SUMMARY | 2024-12-19 10:13 | XMS_ITS | Encounter Summary ---
Author Organization [employer] ([place], [place], [place], [place]) Address [address] [place] [address] Care Team Providers Care Gear Cutting Machine Operator Name Role Phone Unavailable Primary Care Provider Unavailabl e Encounter Details Date Type Department Care Team (Late st Contact Info) Description 09/27/2018 Transcribed Document [facility] [place] Family Medicine [address] [place] [address] ProviderDakotah MD [address] [place], [place] [id number] Social History Tobacco Use Types Packs/Day Years Used Date Smoking Tobacco: Never Assessed Sex and Gender Information Value Date Recorded Sex Assigned at Not on file Legal Sex Male 6:48 PM CDT Gender Identity Not on file Sexual Orientation Not on file documented as of this encounter Miscellaneous Notes * Cerner Conversion Note - Dakotah ProviderMD - 09/27/2018 9:49 AM CDT Initial Discharge Planning Entered On: 09/27/2018 9:50 EDT Performed On: 09/27/2018 9:49 EDT by RUTHANN ALAMO Social Worker-Honing Machine Set Up Operator Initial Assessment I Previously Documented Living Environment : No qualifying data available. Living Situation : Home Patient Lives With : Spouse Emergency Contact #1 : Leslie Chang Emergency Contact #1 Emergency Contact #1 Relationship : daughter Emergency Contact #2 : Renea Zarate Emergency Contact #2 Emergency Contact #2 Relationship : daughter Enter Doctors Name : Dr. Vishal Farrell Does Patient have PCP Listed? : Yes Legal Guardian : No RUTHANN ALAMO Social Worker-Honing Machine Set Up Operator - 09/27/2018 9:49 EDT Initial Assessment II Sensory and Motor Deficits : None Current Home Treatments and Equipment : None Does the Patient have a Floor to SNF Benefit? : Yes ALAMO, RUTHANN A, Astrobiologist-Honing Machine Set Up Operator - 09/27/2018 9:49 EDT Discharge Needs I Current Home Treatment/Equipment : Current Home Treatment/Equipment No qualifying data available. Post Acute/Home Treatments : None RUTHANN ALAMO Astrobiologist-Honing Machine Set Up Operator - 09/27/2018 9:49 EDT Discharge Needs II Professional Skilled Services : Professional Skilled Services No qualifying data available. Needs Assistance with Transportation : No RUTHANN ALAMO Astrobiologist-Honing Machine Set Up Operator - 09/27/2018 9:49 EDT Narrative Note Narrative Note : Patient does not have a readmission score. Patient reported to being ADL's independent. He denied having any CM needs, or having any HH or SNF services. RUTHANN ALAMO Astrobiologist-Honing Machine Set Up Operator - 09/27/2018 9:51 EDT documented in this encounter Plan of Treatment Not on file documented as of this encounter Visit Diagnoses Not on filedocumented in this encounter
--- OUTSIDE RECORDS SUMMARY | 2024-12-19 10:13 | XMS_ITS | Encounter Summary ---
Author Organization [employer] ([place], [place], [place], [place]) Address [address] [place] [address] Care Team Providers Care Immersion Metal Cleaner Name Role Phone Unavailable Primary Care Provider Unavailabl e Encounter Details Date Type Department Care Team (Late st Contact Info) Description 09/27/2018 Transcribed Document [facility] [place] [facility] [place] [address] ProviderDakotah MD [address] [place], [place] [phone] Social History Tobacco Use Types Packs/Day Years Used Date Smoking Tobacco: Never Assessed Sex and Gender Information Value Date Recorded Sex Assigned at Not on file Legal Sex Male 6:48 PM CDT Gender Identity Not on file Sexual Orientation Not on file documented as of this encounter Miscellaneous Notes * Cerner Conversion Note - Dakotah Higgins MD - 09/27/2018 9:20 AM CDT DATE OF ADMISSION: 09/26/2018 DATE OF DISCHARGE: 09/27/2018 ABLE SEAMAN: Man Correa MD DISCHARGE DIAGNOSES: 1. Coronary artery disease. 2. Aortic valve disease. 3. Hypertension. 4. Hyperlipidemia. 5. Diabetes mellitus type 2. LABORATORY DATA: Sodium 141, potassium 4.1, chloride 111, carbon dioxide 25, glucose 120, BUN 21, creatinine 1.4, calcium 8.8. BRIEF HOSPITAL COURSE: The patient is a very pleasant 83-year-old gentleman with a past medical history of coronary artery disease, for which he underwent coronary artery bypass grafting in 1990 and has had subsequent stents. He presents to [facility] on 09/26/2018 for elective outpatient left heart catheterization by Dr. Correa. Patient underwent cardiac catheterization, which revealed severe three-vessel coronary artery disease. The left internal mammary graft remained widely patent. The main circumflex, which had previously received a stent likewise was widely patent. His cardiac catheterization showed severe deterioration of the vein graft insertion site of the marginal branch of the circumflex, associated with 90% or greater in-stent restenosis. This was successfully treated with balloon angioplasty. Additionally, his right coronary saphenous vein graft showed severe deterioration with diffuse stenosis of the 95% narrowing at the worst sites. The vein graft was also repaired with extensive angioplasty and stent therapy with good results. He has been followed for aortic stenosis, which was moderate by echocardiogram. This was reassessed during cardiac catheterization in which the gradient across his aortic valve was found to be 20-30 mmHg. It is recommended the patient have continued observation as well as medical management. He is stable at this time. He is ready for discharge home. He will be discharged on dual antiplatelet therapy with prasugrel and aspirin in addition to statin therapy with atorvastatin. He has instructions to follow with Dr. Correa in one month as well as follow up BMP on Monday. DISCHARGE MEDICATIONS: 1. Alogliptin 12.5 mg p.o. daily. 2. Durezol 0.05% ophthalmic to left eye b.i.d. 3. Glimepiride 1 mg p.o. b.i.d. 4. Aspirin 81 mg p.o. daily. 5. Atenolol 25 mg p.o. daily. 6. Atorvastatin 40 mg p.o. q.h.s. 7. Cholecalciferol 1 tablet p.o. daily. 8. Ferrous sulfate 325 mg p.o. t.i.d. 9. Folic acid 1 mg p.o. daily. 10. Lantus 20 mg subcutaneously q.h.s. 11. Imdur 120 mg p.o. daily. 12. Lisinopril 20 mg p.o. q.h.s. Dictated By: Rosey Howard APRN For Lucy Bella M.D. Dict: 09/27/2018 09:20:55 Trans: 09/28/2018 03:54:29 CC1: Kemal Hermosillo M.D. CC2: Man Correa MD CC3: Primary Care Provider Electronically signed by Chelsea [facility] Conversion Beater Engineer Helper Cerner at 08/07/2022 11:18 PM CDT documented in this encounter Plan of Treatment Not on file documented as of this encounter Visit Diagnoses Not on filedocumented in this encounter
--- OUTSIDE RECORDS SUMMARY | 2024-12-19 10:13 | XMS_ITS | Encounter Summary ---
Author Organization [employer] ([place], [place], [place], [place]) Address [address] [place] [address] Care Team Providers Care Casualty Insurance Claim Adjuster Name Role Phone Unavailable Primary Care Provider Unavailabl e Encounter Details Date Type Department Care Team (Late st Contact Info) Description 09/26/2018 Transcribed Document [facility] [place] Family Medicine [facility] [place] [address] ProviderDakotah MD [address] [place] [phone] Social History Tobacco Use Types Packs/Day Years Used Date Smoking Tobacco: Never Assessed Sex and Gender Information Value Date Recorded Sex Assigned at Not on file Legal Sex Male 6:48 PM CDT Gender Identity Not on file Sexual Orientation Not on file documented as of this encounter Miscellaneous Notes * Cerner Conversion Note - Dakotah Higgins MD - 09/26/2018 10:40 AM CDT DATE OF PROCEDURE: 09/26/2018 PROCEDURE: 1. Left heart catheterization. 2. Selective coronary arteriography. 3. Selective bypass angiography complex angioplasty. 4. Saphenous vein graft to obtuse marginal 1. 5. Complex angioplasty and stent placement. 6. Saphenous vein graft to right coronary artery. INDICATION: Patient with diffuse coronary atherosclerosis previously documented and placed on medical therapy due to high risk anatomy. The patient also has elevated creatinine and is at risk of KAYLA. His symptoms have deteriorated significantly to the point of view that he has no significant quality of life with angina limiting activity and symptoms of class 3-4. After long discussion in the office, patient his elected to try intervention, understanding the risk of KAYLA and the deteriorated status of his vein grafts. DESCRIPTION OF PROCEDURE: RFA 5-[place] sheath, 5-[place] Yoselin Multipack diagnostic study. A 6-[place] sheath Angiomax intracoronary nitroglycerin, aspirin, prasugrel for intervention. First target was the saphenous vein graft to the marginal which had severe in-stent restenosis at the juncture point of approximately 90%. A R4 guiding catheter was employed. A Shirland wire was traversed with difficulty past the lesion. I was unable to pass a stent due to the stiff nature of the vessel but I was able to with effort place a balloon across the lesion and achieved a satisfactory interventional result. Next target was the severely diseased vein graft to the RC. In this case, I used MP1 guiding catheter. Same Shirland wire would not pass the lesion but I was able to place a PX graphic across the lesion. I then performed extensive angioplasty through the body of the graft utilizing a 2.5 x 30 mm balloon. It was noted that the results were quite good except at the very origin and at that time I placed a Synergy 2.5 x 16 mm stent proximal vein graft. Final results were excellent. Angiography of the right common iliac demonstrated the puncture site was free of side vessels and therefore an Angio-Seal was successfully deployed. Adverse events, none. FINDINGS: The patient had known aortic stenosis. The aortic valve was traversed with an AL2 catheter and straight wire and I was able to record LV pressure 140/18, aortic pressure approximately 120/70. Aortic valve gradient 25-30 mmHg consistent with the echo finding of moderate aortic stenosis. Left ventriculogram was not performed since recent echo showed ejection fraction of 50%. ANGIOGRAPHY: Elem circulation. Left main coronary artery was normal dividing into LAD and circumflex. The LAD was proximally occluded but is grafted. The circumflex had a stent in the body of the vessel which remained widely patent supplying a distal posterolateral branch. Marginal branch was occluded but grafted to be described subsequently. Right coronary artery: Right coronary artery was previously documented to be occluded, not reshot. Bypass circulation, left internal mammary graft to the diagonal. LAD widely patent with excellent flow. Saphenous vein graft to the marginal shows severe in-stent restenosis of 90%, residual less than 20% after balloon angioplasty, saphenous vein graft to the right coronary showed diffuse coronary atherosclerosis from the origin to the mid of the graft 90% to 99%. After complex angioplasty and stent placement, it was less than 20% residual with excellent flow and no compromise in vessels. IMPRESSION: 1. Severe three-vessel coronary artery disease. 2. Moderate aortic stenosis. 3. Normal systolic function by echo. 4. The patency of bypass grafts with compromise as described. COMPLEXITY FACTOR: Case was of unusual complexity based on the details described above. Patient was quite high risk with diffuse findings. Man Correa M.D. Dict: 09/26/2018 10:40:30 Trans: 09/26/2018 12:57:29 CC1: Man Correa M.D. Electronically signed by Chelsea, [facility] Conversion Build Manager Cerner at 08/07/2022 11:20 PM CDT documented in this encounter Plan of Treatment Not on file documented as of this encounter Visit Diagnoses Not on filedocumented in this encounter
--- OUTSIDE RECORDS SUMMARY | 2024-12-19 10:13 | XMS_ITS | Encounter Summary ---
Author Organization [employer] ([place], [place], [place], [place]) Address [address] [place] [address] Care Team Providers Care Research Professor Of Biostatistics Name Role Phone Unavailable Primary Care Provider Unavailabl e Encounter Details Date Type Department Care Team (Late st Contact Info) Description 09/27/2018 Transcribed Document [facility] [place] [address] [place] [address] ProviderDakotah MD [address] [place] [address] Social History Tobacco Use Types Packs/Day Years Used Date Smoking Tobacco: Never Assessed Sex and Gender Information Value Date Recorded Sex Assigned at Not on file Legal Sex Male 6:48 PM CDT Gender Identity Not on file Sexual Orientation Not on file documented as of this encounter Miscellaneous Notes * Cerner Conversion Note - Dakotah Higgins MD - 09/27/2018 10:28 AM CDT [facility] [place] [address] PROSPER ROLDAN :1935 Visit Time:09/26/2018 Your Visit Summary Your Care Team Admitting Physician - ERICKA SHORE MD-CAR Attending Physician - ERICKA SHORE MD-CAR Primary Care Physician - SILVER MONTERO MD-NAY Referring Physician - ERICKA SHORE MD-CAR Your Diagnosis Angina pectoris, Angina pectoris, Angina pectoris, Angina pectoris, unspecified, Angina pectoris, unspecified Benign hypertension with CKD (chronic kidney disease) stage III Discharge Vitals Temperature 36.2 ??C Heart Rate (Monitored) 65 Respiratory Rate 18 Blood Pressure 120/72 What to do next Follow-Up Appointments Follow Up with ERICKA SHORE When Within 1 month Comments October 26 @ 11:45am Where: [address] [place] [address]- [phone] Business (1) Follow Up with Follow up with primary care provider When Within 3 to 5 days Comments for BMP Medications What How Much When Instructions Next Dose ferrous sulfate 325 Milligram(s) Oral Monday, Monday, Monday polycarbophil (FiberCon 625 mg oral tablet) 1 Tablet(s) Oral Every Day prasugrel (Effient 10 mg oral tablet) 1 Tablet(s) Oral Every Day Prescription sent to your pharmacy alogliptin (alogliptin 12.5 mg oral tablet) 1 Tablet(s) Oral Every Day aspirin (Aspir 81) 81 Milligram(s) Oral Every Day atenolol 25 Milligram(s) Oral Every Day atorvastatin (Lipitor) 40 Milligram(s) Oral At Bedtime cholecalciferol (cholecalciferol 1000 intl units oral tablet) 1 Tablet(s) Oral Every Day difluprednate ophthalmic (Durezol 0.05% ophthalmic emulsion) 1 Drop(s) Eye Left Two Times A Day folic acid (folic acid 1 mg oral tablet) 1 Tablet(s) Oral Every Day glimepiride (glimepiride 1 mg oral tablet) 1 Tablet(s) Oral Two Times A Day insulin glargine (Lantus Solostar Pen 100 units/ mL subcutaneous solution) 20 Unit(s) SubCutaneous Every Day isosorbide mononitrate 120 Milligram(s) Oral Every Morning lisinopril 2.5 Milligram(s) Oral At Bedtime niacin (Niaspan ER 750 mg oral tablet, extended release) 1 Tablet(s) Oral At Bedtime nitroglycerin (Nitrostat 0.4 mg sublingual tablet) 1 Tablet(s) SubLINgual Every 5 minutes as needed for as needed for chest pain ranolazine (Ranexa) 1,000 Milligram(s) Oral Two Times A Day temazepam (Restoril) 30 Milligram(s) Oral At Bedtime testosterone (Depo-Testosterone 200 mg/ mL intramuscular solution) 1 Milliliter(s) IntraMuscular Every 3 Weeks ubiquinone (CoQ10) 100 Milligram(s) Oral Every Day Take your medications faithfully. [...] This Visit No Immunizations Found Education Materials Carotid Angioplasty With Stent, Care After These instructions give you information about caring for yourself after your procedure. Your doctor may also give you more specific instructions. Call your doctor if you have any problems or questions after your procedure. Follow these instructions at home: Medicines ??? Take [id number] and prescription medicines only as told by [...] cannot use soap and water, use hand taxi proprietor. ? Change your bandage as told by [...] of beer, 5 oz of wine, or 1?? oz of hard liquor. ??? Do not [...] 04/15/2014 Document Revised: 09/15/2016 Document Reviewed: 01/03/2016 [email or web address] Interactive Patient Education ?? 2019 [email or web address] Emergency Awareness and Preventative Care [place] is [...] Assistance with quitting is available by contacting NOW. This is a free resource providing counseling, [...] and how to prevent infections, visit www.cdc.gov/sepsis. Patient Portal Reminder: Be sure to sign up for the [employer] patient portal, which gives you 14/11 access to your medical information ??? including these discharge instructions ??? using your computer, smartphone, or tablet. Just go to [employer] to get started. Questions? Call . Test Results Laboratory or Other Results This Visit (last charted value for your 09/26/2018 visit) Hematology 09/26/18 07:21:00 Hemoglobin POC: 15.3 Gram/dL -- Normal range between ( 12.0 and 17.0 ) Hematocrit POC: 45.0 % -- Normal range between ( 38.0 and 51.0 ) 09/26/18 07:09:00 Platelet Count: 173 K/uL -- Normal range between ( 163 and 369 ) General Chemistry 09/27/18 06:21:00 Glucose POC2: 131 mg/dL -- Normal range between ( 70 and 110 ) Device Comment 1: Device Comment 1 09/27/18 05:42:00 Creatinine Level: 1.40 mg/dL -- Normal range between ( 0.70 and 1.30 ) Sodium Level: 141 mmol/L -- Normal range between ( 136 and 146 ) Potassium Level: 4.1 mmol/L -- Normal range between ( 3.5 and 5.1 ) Chloride Level: 111 mmol/L -- Normal range between ( 102 and 112 ) Carbon Dioxide Level: 25 mmol/L -- Normal range between ( 21 and 32 ) Anion Gap: 9 -- Normal range between ( 9 and 20 ) Bun/Creatinine: 15.0 -- Normal range between ( 8.0 and 20.0 ) Calcium Level: 8.8 mg/dL -- Normal range between ( 8.4 and 10.1 ) eGFR : 59 mL/min/1.73m2 eGFR NonAfrican: 49 mL/min/1.73m2 Glucose Level: 120 mg/dL -- Normal range between ( 74 and 106 ) Blood Urea Nitrogen: 21 mg/dL -- Normal range between ( 7 and 22 ) 09/26/18 07:21:00 Sodium POC: 140 mmol/L -- Normal range between ( 138 and 146 ) Ca Ioniz POC: 1.35 mmol/L -- Normal range between ( 1.12 and 1.32 ) Potassium POC: 4.5 mmol/L -- Normal range between ( 3.5 and 4.9 ) Creatinine POC: 1.5 mg/dL -- Normal range between ( 0.6 and 1.3 ) BUN POC: 29 mg/dL -- Normal range between ( 8 and 26 ) CO2 POC: 21.0 mmol/L -- Normal range between ( 24.0 and 29.0 ) Chloride POC: 107 mmol/L -- Normal range between ( 98 and 109 ) Glucose POC: 174 mg/dL -- Normal range between ( 70 and 105 ) Anion Gap POC: 17.0 mmol/L -- Normal range between ( 10.0 and 20.0 ) Patient Name:PROSPER ROLDAN I have received and understand this information and was given the opportunity to ask questions. Patient/Medical Support Specialist Name: Patient/Medical Support Specialist Signature: Relationship to Patient: Clinician/Hospital Medical Support Specialist Signature: Date: documented in this encounter Plan of Treatment Not on file documented as of this encounter Visit Diagnoses Not on filedocumented in this encounter
--- OUTSIDE RECORDS SUMMARY | 2024-12-19 10:13 | XMS_ITS | Encounter Summary ---
Author Organization [employer] ([place], [place], [place], [place]) Address [address] [place] [address] Care Team Providers Care Social Research Assistant Name Role Phone Unavailable Primary Care Provider Unavailabl e Encounter Details Date Type Department Care Team (Late st Contact Info) Description 09/26/2018 Transcribed Document [facility] [place] [address] [place] [address] ProviderDakotah MD [address] [place] [address] Social History Tobacco Use Types Packs/Day Years Used Date Smoking Tobacco: Never Assessed Sex and Gender Information Value Date Recorded Sex Assigned at Not on file Legal Sex Male 6:48 PM CDT Gender Identity Not on file Sexual Orientation Not on file documented as of this encounter Miscellaneous Notes * Cerner Conversion Note - Historical ProviderMD - 09/26/2018 7:26 AM CDT Pre Procedure Adult Entered On: 09/26/2018 7:33 EDT Performed On: 09/26/2018 7:26 EDT by ANGEL PITTMAN RN Height and Weight, Clinical Dosing Height Source : Stated Height Entry Format : [place] Height, Feet : 5 ft(Converted to: 152 cm, 60 Inch) Height, Inches : 9 Inch(Converted to: 0 ft 9 Inch, 22.86 cm) Clinical Height : 175.26 cm Weight Source : Standing scale Weight Entry Format : [place] Clinical Dosing Weight : 85 kg Weight, Pounds : 187 lb Body Surface Area (BSA) : 2.01 m2 Body Mass Index : 27.7 kg/m2 (HI) [place] Body Weight : 70 kg ANGEL PITTMAN RN - 09/26/2018 7:26 EDT Health Histories Smoking Status : Former smoker, quit more than 30 days ago Smokeless Tobacco Status : Never ANGEL PITTMAN RN - 09/26/2018 7:26 EDT Social History (As Of: 09/26/2018 07:33:31 EDT) Tobacco: Use in Last 12 Months: No. Years of Use: 10. Last Used: Quit 40 years ago. (Last Updated: 02/04/2015 09:11:09 EDT by TOM POLANCO, RN) Alcohol: Alcohol Use History Yes. Alcohol Use Frequency Socially. (Last Updated: 02/04/2015 09:11:25 EDT by TOM POLANCO, RN) Substance Abuse: Drug Use Hx: No. (Last Updated: 09/26/2018 07:27:16 EDT by ANGEL PITTMAN RN) Infectious Disease History Infectious Disease History : Chicken pox/Shingles, Measles, Mumps Fever/Chills Last 48 Hours : No Travel To Regions with Travel Advisories : No Travel Outside [place] Within Last 30 Days : No Contact With Traveler to Advisory Region : No Tuberculosis Symptoms : None ANGEL PITTMAN RN - 09/26/2018 7:26 EDT Anesthesia/Transfusion History Family History of Anesthesia Reaction : No prior transfusion(s) Transfusion History : Prior anesthesia without reaction Family History of Anesthesia Reaction : None ANGEL PITTMAN RN - 09/26/2018 7:26 EDT Functional Assessment Living Situation : Home Patient Lives With : Spouse Current Home Treatments : Blood glucose monitoring, CPAP ANGEL PITTMAN RN - 09/26/2018 7:26 EDT Psychosocial History Currently in Unsafe Situation : No Tried to Harm Yourself in the Past? : No Thoughts of Harming/Killing Yourself : No ANGEL PITTMAN RN - 09/26/2018 7:26 EDT Advance Directive Patient has Advance Directive *Q : Yes, Advance Directive not with the patient Advance Directive Type : CPR directive, Living will, Medical durable power of mergers and acquisitions attorney (proxy) Copy Advance Directive Verified/on Chart : No ANGEL PITTMAN RN - 09/26/2018 7:26 EDT Teaching/Learning Assessment Individuals Taught : Patient Readiness to Learn : Cooperative Baseline Knowledge of Topic : Limited Readiness to Learn : Explanation Learning Style Preferences Patient : Verbal explanation ANGEL PITTMAN RN - 09/26/2018 7:26 EDT Education Topics, Periop Preadmission Perioperative Education [place] : Verbalizes understanding Infection Control : Verbalizes understanding IV's : Verbalizes understanding NPO Status/Directions : Verbalizes understanding Pain Management : Verbalizes understanding Postoperative Care Preparations : Verbalizes understanding Preprocedure Preparations : Verbalizes understanding Preprocedure Tests/Labs : Verbalizes understanding Responsible Adult : Verbalizes understanding Take/Hold Medications Pre-Procedure : Verbalizes understanding ANGEL PITTMAN RN - 09/26/2018 7:26 EDT General Info Arrived From : Home Mode of Arrival on Unit : Ambulatory Patient Arrival Date/Time : 09/26/2018 6:59 EDT Legal Guardian : Daughter Support Person/Pt Rep Name : Leslie Chang daughter Support Person/Pt Rep Contact Information : [phone] Want Family/Rep/Phys Notified of Admit : No Emergency Contact #1 : Leslie Chang Emergency Contact #1 Emergency Contact #1 Relationship : daughter Emergency Contact #2 : Renea Zarate Emergency Contact #2 Emergency Contact #2 Relationship : daughter Information Obtained From : Patient Primary Language : Kazakh Preferred Communication Mode : Verbal Communication Barrier : None ANGEL PITTMAN RN - 09/26/2018 7:26 EDT Vital Measurements Temperature Source : Temporal artery scanning Temperature Mode : Fahrenheit Temperature, Fahrenheit : 97.3 Deg F Clinical Temperature, C : 36.3 Deg C Peripheral Pulse Rate : 51 bpm (LOW) Systolic Blood Pressure : 111 mmHg Diastolic Blood Pressure : 55 mmHg (LOW) Oxygen Saturation : 97 % Oxygen Therapy Mode : Room air ANGEL PITTMAN RN - 09/26/2018 7:26 EDT Sleep Apnea Risk Assmt BiPAP/CPAP Ordered for Home Use : Yes Hx of Obstructive Sleep Apnea Diagnosis : Yes BiPAP/CPAP Used at Home : Yes Age over 50 Years Old : Yes Gender Male : Yes ANGEL PITTMAN RN - 09/26/2018 7:26 EDT Jaun Scale Jaun Sensory Perception : No impairment Jaun Moisture : Rarely moist Jaun Activity : Walks frequently Jaun Mobility : No limitation Jaun Nutrition : Excellent Jaun Friction and Shear : No apparent problem Jaun Score : 23 ANGEL PITTMAN RN - 09/26/2018 7:26 EDT Oxygen Therapy Oxygen Therapy Mode : Room air ANGEL PITTMAN RN - 09/26/2018 7:26 EDT Pain Assessment Pain Assessment : Initial assessment Pain Scale Used : 0-10 Scale ANGEL PITTMAN RN - 09/26/2018 7:26 EDT Fall Risk Scales ABCs Fall Injury Risk Identification : None VALDEZ Hx Falls Immediate/Within 3 Months : No [place] Secondary Diagnosis : No VALDEZ Use of Ambulatory Aid : None VALDEZ IV Therapy or IV Access : Yes [place] Gait/Transferring : Normal, bedrest, immobile [place] Mental Status : Oriented to own ability [place] Fall Risk Score : 20 VALDEZ Fall Scale Risk Level : 0-24 Low Risk [place] Fall Interventions : Adequate lighting, Call device within reach, Frequent orientation to call device, Frequent orientation to surroundings, Non-slip footwear, Personal items within reach, Room free of clutter/spills, Upper side-rails up, Wheels locked, Wires/Cords secured ANGEL PITTMAN RN - 09/26/2018 7:26 EDT Valuables and Belongings Valuables and Belongings : Clothing, Jewelry, Personal items Clothing : Common streetwear Clothing Disposition : With family, Declines to send to security/safe Jewelry : Ring-plain band Jewelry Disposition : With patient, Declines to send to security/safe Personal Items : Wallet Personal Items Disposition : With family, Declines to send to security/safe ANGEL PITTMAN RN - 09/26/2018 7:26 EDT Pain Scale Intensity : 0 ANGEL PITTMAN RN - 09/26/2018 7:26 EDT Image 4 - Images currently included in the form version of this document have not been included in the text rendition version of the form. documented in this encounter Plan of Treatment Not on file documented as of this encounter Visit Diagnoses Not on filedocumented in this encounter
[2024-12-19 10:42] LABS: Hematocrit 39.6 % (42.0-52.0); Hemoglobin 12.5 g/dL (14.1-18.0); Immature Granulocytes % 0.4 %; Mean Corpuscular HGB Conc 31.6 g/dL (31.8-35.4); Mean Corpuscular Hemoglobin 32.4 pg (27.0-31.2); Mean Corpuscular Volume 102.6 fl (80-94); Nucleated Red Blood Cells % 0 %; Platelet Count 139 K/mm3 (142-424); Red Blood Count 3.86 M/mm3 (4.60-6.20); Red Cell Distribution Width-SD 49.9 fL; White Blood Count 11.7 K/mm3 (4.8-10.8)
[2024-12-19 11:05] LABS: Albumin Level 4.3 g/dl (3.5-5.0); Chloride 107 mmol/L (98-107); Potassium 4.6 mmoL/L (3.5-5.1); Sodium 138 mmol/L (136-145)
[2024-12-19 11:08] LABS: Alanine Aminotransferase 26 U/L (12-78); Albumin/Globulin Ratio 2.5 (1.1-1.8); Alkaline Phosphatase 59 U/L (38-126); Anion Gap 9.6 mEq/L (5-15); Aspartate Amino Transferase 31 U/L (17-59); Bilirubin,Total 0.4 mg/dl (0.2-1.3); Blood Urea Nitrogen 35 mg/dl (9-20); Calcium 9.1 mg/dl (8.4-10.2); Carbon Dioxide 26 mmol/L (22.0-30.0); Creatinine,Serum 1.20 mg/dl (0.66-1.25); Estimated Glomerular Filt Rate 57 ml/min (>60); GFR (African American) 69 ML/MIN (>60); Globulin 1.7 g/dL (1.3-3.2); Glucose 183 mg/dl (74-100); Total Protein,Serum 6.0 g/dl (6.3-8.2)
[2024-12-19 12:59] LABS: Total Cells Counted 100
[2024-12-19 13:04] LABS: RBC Morphology Normal
== END 2024-12-19 23:59 | disposition home or self-care (01) ==
PROVIDERS: PCP Family Medicine; Visit Provider Internal Medicine Medical Oncology
DX: C44.91 Basal cell carcinoma of skin, unspecified (principal)
CPT/HCPCS: 80053; 85007; 85025